=== PATIENT | male | born 1965 | race Caucasian/White ===

== ENCOUNTER 2017-12-18 16:30 | Inpatient (IN) | payer OTHER ==
[2017-12-18] MEDS: SODIUM CHLORIDE 0.9% 1L BAG IV* (17:07)
[2017-12-18 17:15] LABS: ADD MAN DIFF? NO
[2017-12-18 17:17] LABS: WHITE BLOOD COUNT 12.3 10^3/ul (4.8-10.8)
[2017-12-18 17:17] LABS: BASOPHILS % 0.2 % (0.0-2.0); EOSINOPHILS # 0.1 10^3/ul (0.0-0.5); EOSINOPHILS % 0.7 % (0.0-7.0); HEMATOCRIT 27.8 % (42.0-52.0); HEMOGLOBIN 9.9 g/dl (14.0-18.0); LYMPHOCYTES # 2.1 10^3/ul (0.8-2.9); LYMPHOCYTES % 16.9 % (15.0-51.0); MEAN CORPUSCULAR HEMOGLOBIN 33.2 pg (29.0-33.0); MEAN CORPUSCULAR HGB CONC 35.6 g/dl (32.0-37.0); MEAN CORPUSCULAR VOLUME 93.3 fl (82.0-101.0); MEAN PLATELET VOLUME 9.7 fl (7.4-10.4); NEUTROPHIL # 9.1 10^3/ul (1.6-7.5); NEUTROPHILS % 73.9 % (39.0-77.0); PLATELET COUNT 218 10^3/UL (140-415); RED BLOOD COUNT 2.98 10^6/ul (4.70-6.10); RED CELL DISTRIBUTION WIDTH 10.7 % (11.5-14.5)
[2017-12-18 17:36] LABS: ALANINE AMINOTRANSFERASE 31 IU/L (13-69); ALBUMIN 3.4 g/dl (3.3-4.9); ALBUMIN/GLOBULIN RATIO 0.91; ALKALINE PHOSPHATASE 88 IU/L (42-121); ANION GAP 11 (8-16); ASPARTATE AMINO TRANSFERASE 25 IU/L (15-46); BILIRUBIN,INDIRECT 0.8 mg/dl (0-1.1); BILIRUBIN,TOTAL 0.8 mg/dl (0.2-1.3); BLOOD UREA NITROGEN 34 mg/dl (7-20); CALCIUM 8.9 mg/dl (8.4-10.2); CARBON DIOXIDE 27 mmol/L (21-31); CHLORIDE 99 mmol/L (97-110); CREATININE 1.23 mg/dl (0.61-1.24); GLUCOSE 297 mg/dl (70-220); POTASSIUM 4.4 mmol/L (3.5-5.1); SODIUM 133 mmol/L (135-144); TOTAL PROTEIN 7.1 g/dl (6.1-8.1)
[2017-12-18] MEDS: CEFEPIME 1GM/50 ML (PMX) 50 ML IVPB (17:38)
[2017-12-18 17:43] LABS: INR 1.14; PROTIME 14.8 Sec (11.9-14.9); PT RATIO 1.2
[2017-12-18 17:44] LABS: PARTIAL THROMBOPLASTIN TIME 41.4 Sec (25.0-35.0)
[2017-12-18 17:52] LABS: TROPONIN-I < 0.010 ng/ml (0.000-0.120)
[2017-12-18 17:56] LABS: ADD UMIC YES; UR ASCORBIC ACID NEGATIVE (NEGATIVE); UR BILIRUBIN (Dip) NEGATIVE (NEGATIVE); UR BLOOD (Dip) NEGATIVE (NEGATIVE); UR CLARITY CLEAR (CLEAR); UR COLOR STRAW (YELLOW); UR GLUCOSE (Dip) 3+ mg/dL (NEGATIVE); UR KETONES (Dip) NEGATIVE (NEGATIVE); UR LEUKOCYTE ESTERASE (Dip) NEGATIVE Leu/ul (NEGATIVE); UR NITRITE (Dip) NEGATIVE (NEGATIVE); UR RBC 1 /HPF (0-5); UR TOTAL PROTEIN (Dip) 2+ mg/dl (NEGATIVE); UR UROBILINOGEN (Dip) NEGATIVE (NEGATIVE); UR WBC 0 /HPF (0-5)
[2017-12-18] MEDS: VANCOMYCIN 1 GM (PMX) 250 ML IVPB (18:10)
[2017-12-18 18:17] LABS: C-REACTIVE PROTEIN 15.2 mg/dl (0.0-0.9)
[2017-12-18 18:23] LABS: ERYTHROCYTE SEDIMENTATION RATE 130 mm/Hr (0-20)
[2017-12-18] MEDS ORDERED: ONDANSETRON 4 MG INJ IV (18:30)
[2017-12-18] MEDS ORDERED: ACETAMINOPHEN 325 MG TAB PO (18:30)
[2017-12-18 19:46] LABS: LACTIC ACID 0.9 mmol/L (0.5-2.0)
[2017-12-18 22:20] LABS: LACTIC ACID 0.9 mmol/L (0.5-2.0)
[2017-12-18] MEDS ORDERED: DEXTROSE 50% 50 ML SYRINGE IV ×2 (23:00)
[2017-12-18] MEDS ORDERED: morphine 2 MG INJ IV (23:00)
[2017-12-18] MEDS ORDERED: GLUCAGON 1 MG INJ IM (23:00)
[2017-12-18] MEDS ORDERED: GLUCOSE GEL 15 GRAM TUBE PO ×2 (23:00)
[2017-12-18] MEDS: SOD CHLORIDE 0.9% 1,000 ML IV (23:00)
[2017-12-18] MEDS ORDERED: ZOLPIDEM 5 MG TAB PO (23:00)
[2017-12-18] MEDS ORDERED: GLUCOSE GEL 15 GRAM TUBE BUCCAL (23:00)
[2017-12-19] MEDS: ACCU-CHEK XX (02:00)
[2017-12-19 07:13] LABS: ADD MAN DIFF? NO
[2017-12-19 07:15] LABS: BASOPHILS % 0.2 % (0.0-2.0); EOSINOPHILS # 0.1 10^3/ul (0.0-0.5); EOSINOPHILS % 1.4 % (0.0-7.0); HEMATOCRIT 28.2 % (42.0-52.0); HEMOGLOBIN 9.8 g/dl (14.0-18.0); LYMPHOCYTES # 1.3 10^3/ul (0.8-2.9); LYMPHOCYTES % 14.5 % (15.0-51.0); MEAN CORPUSCULAR HGB CONC 34.8 g/dl (32.0-37.0); MEAN CORPUSCULAR VOLUME 94.9 fl (82.0-101.0); MEAN PLATELET VOLUME 9.8 fl (7.4-10.4); MONOCYTE # 0.7 10^3/ul (0.3-0.9); MONOCYTES % 7.5 % (0.0-11.0); NEUTROPHILS % 76.1 % (39.0-77.0); PLATELET COUNT 206 10^3/UL (140-415); RED BLOOD COUNT 2.97 10^6/ul (4.70-6.10); RED CELL DISTRIBUTION WIDTH 10.8 % (11.5-14.5)
[2017-12-19 07:15] LABS: WHITE BLOOD COUNT 9.2 10^3/ul (4.8-10.8)
[2017-12-19 07:46] LABS: ALANINE AMINOTRANSFERASE 28 IU/L (13-69); ALBUMIN 3.2 g/dl (3.3-4.9); ALBUMIN/GLOBULIN RATIO 0.88; ALKALINE PHOSPHATASE 82 IU/L (42-121); ANION GAP 15 (8-16); ASPARTATE AMINO TRANSFERASE 23 IU/L (15-46); BILIRUBIN,INDIRECT 1.1 mg/dl (0-1.1); BILIRUBIN,TOTAL 1.1 mg/dl (0.2-1.3); BLOOD UREA NITROGEN 26 mg/dl (7-20); CALCIUM 8.8 mg/dl (8.4-10.2); CARBON DIOXIDE 25 mmol/L (21-31); CHLORIDE 107 mmol/L (97-110); CREATININE 0.93 mg/dl (0.61-1.24); GLUCOSE 103 mg/dl (70-220); POTASSIUM 4.6 mmol/L (3.5-5.1); SODIUM 142 mmol/L (135-144); TOTAL PROTEIN 6.8 g/dl (6.1-8.1)
[2017-12-19] MEDS: INSULIN ASPART [NOVOLOG] 3 ML PEN SC ×4 (08:00→20:42)
[2017-12-19] MEDS: FAMOTIDINE 20 MG TAB PO ×2 (08:13→20:38)
[2017-12-19] MEDS: ENOXAPARIN 40 MG/0.4 ML SYG SC (08:14)
[2017-12-19] MEDS: CEFTRIAXONE 1 GM/50 ML (PMX) 50 ML IVPB (08:17)
[2017-12-19] MEDS ORDERED: CEFTRIAXONE 1 GM INJ IVPB (09:00)
[2017-12-19] MEDS: AMLODIPINE 5 MG TAB PO (11:56)
[2017-12-19] MEDS ORDERED: VANCOMYCIN IV PER PHARMACY XX (14:30)
[2017-12-19] MEDS: VANCOMYCIN 1 GM 250 ML IVPB (14:51)
[2017-12-19] MEDS: SOD CHLORIDE 0.9% 1,000 ML IV (14:51)
[2017-12-19] MEDS: ACETAMINOPHEN 325 MG TAB PO (16:00)
[2017-12-20] MEDS: ACCU-CHEK XX (02:00)
[2017-12-20] MEDS: VANCOMYCIN 1 GM 250 ML IVPB ×2 (04:09→15:46)
[2017-12-20 07:20] LABS: ADD MAN DIFF? NO
[2017-12-20 07:28] LABS: WHITE BLOOD COUNT 9.3 10^3/ul (4.8-10.8)
[2017-12-20 07:28] LABS: BASOPHILS % 0.2 % (0.0-2.0); EOSINOPHILS # 0.2 10^3/ul (0.0-0.5); EOSINOPHILS % 1.7 % (0.0-7.0); HEMATOCRIT 28.1 % (42.0-52.0); HEMOGLOBIN 9.7 g/dl (14.0-18.0); LYMPHOCYTES # 1.4 10^3/ul (0.8-2.9); LYMPHOCYTES % 15.1 % (15.0-51.0); MEAN CORPUSCULAR HEMOGLOBIN 32.8 pg (29.0-33.0); MEAN CORPUSCULAR HGB CONC 34.5 g/dl (32.0-37.0); MEAN CORPUSCULAR VOLUME 94.9 fl (82.0-101.0); MEAN PLATELET VOLUME 9.8 fl (7.4-10.4); MONOCYTE # 0.6 10^3/ul (0.3-0.9); MONOCYTES % 6.9 % (0.0-11.0); NEUTROPHIL # 7.1 10^3/ul (1.6-7.5); NEUTROPHILS % 75.8 % (39.0-77.0); PLATELET COUNT 216 10^3/UL (140-415); RED BLOOD COUNT 2.96 10^6/ul (4.70-6.10); RED CELL DISTRIBUTION WIDTH 10.6 % (11.5-14.5)
[2017-12-20 07:58] LABS: ANION GAP 14 (8-16); BLOOD UREA NITROGEN 21 mg/dl (7-20); CALCIUM 8.5 mg/dl (8.4-10.2); CARBON DIOXIDE 23 mmol/L (21-31); CHLORIDE 109 mmol/L (97-110); CREATININE 0.85 mg/dl (0.61-1.24); GLUCOSE 119 mg/dl (70-220); POTASSIUM 4.3 mmol/L (3.5-5.1); SODIUM 142 mmol/L (135-144)
[2017-12-20] MEDS: INSULIN ASPART [NOVOLOG] 3 ML PEN SC ×4 (08:00→20:20)
[2017-12-20] MEDS: FAMOTIDINE 20 MG TAB PO ×2 (08:19→20:12)
[2017-12-20] MEDS: AMLODIPINE 5 MG TAB PO (08:20)
[2017-12-20] MEDS: ENOXAPARIN 40 MG/0.4 ML SYG SC (08:21)
[2017-12-20] MEDS: CEFTRIAXONE 1 GM/50 ML (PMX) 50 ML IVPB (08:40)
[2017-12-20] MEDS: CLOPIDOGREL 75 MG TAB PO (11:43)
[2017-12-21] MEDS: ACCU-CHEK XX (01:50)
[2017-12-21 02:25] LABS: ADD MAN DIFF? NO
[2017-12-21 02:27] LABS: BASOPHILS % 0.2 % (0.0-2.0); EOSINOPHILS # 0.2 10^3/ul (0.0-0.5); EOSINOPHILS % 2.2 % (0.0-7.0); HEMOGLOBIN 9.9 g/dl (14.0-18.0); LYMPHOCYTES # 1.7 10^3/ul (0.8-2.9); MEAN CORPUSCULAR HGB CONC 35.4 g/dl (32.0-37.0); MEAN CORPUSCULAR VOLUME 93.3 fl (82.0-101.0); MONOCYTE # 0.7 10^3/ul (0.3-0.9); MONOCYTES % 7.3 % (0.0-11.0); NEUTROPHIL # 6.7 10^3/ul (1.6-7.5); NEUTROPHILS % 71.9 % (39.0-77.0); PLATELET COUNT 220 10^3/UL (140-415); RED CELL DISTRIBUTION WIDTH 10.6 % (11.5-14.5)
[2017-12-21 02:27] LABS: WHITE BLOOD COUNT 9.3 10^3/ul (4.8-10.8)
[2017-12-21 02:48] LABS: ANION GAP 12 (8-16); BLOOD UREA NITROGEN 19 mg/dl (7-20); CALCIUM 8.6 mg/dl (8.4-10.2); CARBON DIOXIDE 26 mmol/L (21-31); CHLORIDE 108 mmol/L (97-110); GLUCOSE 150 mg/dl (70-220); POTASSIUM 4.2 mmol/L (3.5-5.1); SODIUM 142 mmol/L (135-144)
[2017-12-21 03:03] LABS: HEMOGLOBIN A1C 10.1 % (0-5.9)
[2017-12-21 03:04] LABS: VANCOMYCIN,TROUGH 9.1 ug/ml (10.0-20.0)
[2017-12-21] MEDS: VANCOMYCIN 1 GM 250 ML IVPB (03:15)
[2017-12-21] MEDS: INSULIN ASPART [NOVOLOG] 3 ML PEN SC ×4 (08:09→20:56)
[2017-12-21] MEDS: CEFTRIAXONE 1 GM/50 ML (PMX) 50 ML IVPB (08:12)
[2017-12-21] MEDS: FAMOTIDINE 20 MG TAB PO ×2 (08:13→20:45)
[2017-12-21] MEDS: AMLODIPINE 5 MG TAB PO (08:14)
[2017-12-21] MEDS: ENOXAPARIN 40 MG/0.4 ML SYG SC (08:16)
[2017-12-21] MEDS: VANCOMYCIN 1.25 GM in SOD CHLORIDE 0.9% 250 ML IVPB ×2 (12:20→23:29)
[2017-12-21] MEDS: PENTOXIFYLLINE (SR) 400 MG TAB PO ×2 (14:39→20:45)
[2017-12-21] MEDS: INSULIN GLARGINE [LANtus] 3 ML PEN SC (20:56)
[2017-12-22] MEDS: ACCU-CHEK XX (02:00)
[2017-12-22 05:37] LABS: ADD MAN DIFF? NO
[2017-12-22 05:43] LABS: WHITE BLOOD COUNT 8.6 10^3/ul (4.8-10.8)
[2017-12-22 05:43] LABS: BASOPHILS % 0.3 % (0.0-2.0); EOSINOPHILS # 0.2 10^3/ul (0.0-0.5); EOSINOPHILS % 2.3 % (0.0-7.0); HEMATOCRIT 26.2 % (42.0-52.0); HEMOGLOBIN 9.3 g/dl (14.0-18.0); LYMPHOCYTES # 1.4 10^3/ul (0.8-2.9); LYMPHOCYTES % 15.8 % (15.0-51.0); MEAN CORPUSCULAR HGB CONC 35.5 g/dl (32.0-37.0); MEAN CORPUSCULAR VOLUME 92.9 fl (82.0-101.0); MEAN PLATELET VOLUME 9.5 fl (7.4-10.4); MONOCYTE # 0.6 10^3/ul (0.3-0.9); NEUTROPHIL # 6.4 10^3/ul (1.6-7.5); NEUTROPHILS % 74.1 % (39.0-77.0); PLATELET COUNT 236 10^3/UL (140-415); RED BLOOD COUNT 2.82 10^6/ul (4.70-6.10); RED CELL DISTRIBUTION WIDTH 10.6 % (11.5-14.5)
[2017-12-22] MEDS: FAMOTIDINE 20 MG TAB PO ×2 (08:01→21:11)
[2017-12-22] MEDS: PENTOXIFYLLINE (SR) 400 MG TAB PO ×3 (08:01→22:15)
[2017-12-22] MEDS: AMLODIPINE 5 MG TAB PO (08:01)
[2017-12-22] MEDS: CEFTRIAXONE 1 GM/50 ML (PMX) 50 ML IVPB (08:02)
[2017-12-22] MEDS: INSULIN ASPART [NOVOLOG] 3 ML PEN SC ×5 (08:07→21:14)
[2017-12-22] MEDS: ENOXAPARIN 40 MG/0.4 ML SYG SC (08:07)
[2017-12-22] MEDS: VANCOMYCIN 1.25 GM in SOD CHLORIDE 0.9% 250 ML IVPB (11:33)
[2017-12-22] MEDS: INSULIN GLARGINE [LANtus] 3 ML PEN SC (21:13)
[2017-12-23] MEDS: VANCOMYCIN 1.25 GM in SOD CHLORIDE 0.9% 250 ML IVPB ×2 (00:17→12:18)
[2017-12-23] MEDS: ACCU-CHEK XX (02:00)
[2017-12-23 05:56] LABS: ADD MAN DIFF? NO
[2017-12-23 06:08] LABS: WHITE BLOOD COUNT 8.6 10^3/ul (4.8-10.8)
[2017-12-23 06:08] LABS: BASOPHILS % 0.3 % (0.0-2.0); EOSINOPHILS # 0.3 10^3/ul (0.0-0.5); HEMOGLOBIN 9.1 g/dl (14.0-18.0); LYMPHOCYTES # 1.7 10^3/ul (0.8-2.9); LYMPHOCYTES % 19.1 % (15.0-51.0); MEAN CORPUSCULAR HEMOGLOBIN 32.7 pg (29.0-33.0); MEAN CORPUSCULAR VOLUME 93.5 fl (82.0-101.0); MEAN PLATELET VOLUME 9.4 fl (7.4-10.4); MONOCYTE # 0.6 10^3/ul (0.3-0.9); MONOCYTES % 7.1 % (0.0-11.0); NEUTROPHIL # 6.1 10^3/ul (1.6-7.5); NEUTROPHILS % 70.2 % (39.0-77.0); PLATELET COUNT 246 10^3/UL (140-415); RED BLOOD COUNT 2.78 10^6/ul (4.70-6.10); RED CELL DISTRIBUTION WIDTH 10.5 % (11.5-14.5)
[2017-12-23 06:44] LABS: ANION GAP 11 (8-16); BLOOD UREA NITROGEN 16 mg/dl (7-20); CALCIUM 8.4 mg/dl (8.4-10.2); CARBON DIOXIDE 28 mmol/L (21-31); CHLORIDE 107 mmol/L (97-110); CREATININE 0.97 mg/dl (0.61-1.24); GLUCOSE 146 mg/dl (70-220); POTASSIUM 4.1 mmol/L (3.5-5.1); SODIUM 142 mmol/L (135-144)
[2017-12-23] MEDS: INSULIN ASPART [NOVOLOG] 3 ML PEN SC ×7 (08:15→21:43)
[2017-12-23] MEDS: AMLODIPINE 5 MG TAB PO ×2 (09:00→12:18)
[2017-12-23] MEDS: FAMOTIDINE 20 MG TAB PO ×3 (09:00→21:42)
[2017-12-23] MEDS: PENTOXIFYLLINE (SR) 400 MG TAB PO ×3 (09:00→21:42)
[2017-12-23] MEDS: ENOXAPARIN 40 MG/0.4 ML SYG SC ×2 (09:00→12:24)
[2017-12-23] MEDS: CEFTRIAXONE 1 GM/50 ML (PMX) 50 ML IVPB (09:13)
[2017-12-23 12:00] LABS: VANCOMYCIN,TROUGH 13.2 ug/ml (10.0-20.0)
[2017-12-23] MEDS: INSULIN GLARGINE [LANtus] 3 ML PEN SC (21:44)
[2017-12-24] MEDS: VANCOMYCIN 1.5 GM in SOD CHLORIDE 0.9% 250 ML IVPB ×3 (00:31→23:53)
[2017-12-24] MEDS: ACCU-CHEK XX (02:37)
[2017-12-24 06:50] LABS: BLOOD UREA NITROGEN 17 mg/dl (7-20)
[2017-12-24 06:50] LABS: CREATININE 1.05 mg/dl (0.61-1.24)
[2017-12-24] MEDS: INSULIN ASPART [NOVOLOG] 3 ML PEN SC ×7 (07:38→20:53)
[2017-12-24] MEDS: AMLODIPINE 5 MG TAB PO (09:01)
[2017-12-24] MEDS: PENTOXIFYLLINE (SR) 400 MG TAB PO ×3 (09:01→20:51)
[2017-12-24] MEDS: FAMOTIDINE 20 MG TAB PO ×2 (09:01→20:50)
[2017-12-24] MEDS: ENOXAPARIN 40 MG/0.4 ML SYG SC (09:02)
[2017-12-24] MEDS: INSULIN GLARGINE [LANtus] 3 ML PEN SC (20:52)
[2017-12-25] MEDS: ACCU-CHEK XX (01:56)
[2017-12-25 06:53] LABS: CREATININE 1.02 mg/dl (0.61-1.24)
[2017-12-25 06:53] LABS: BLOOD UREA NITROGEN 17 mg/dl (7-20)
[2017-12-25] MEDS: INSULIN ASPART [NOVOLOG] 3 ML PEN SC ×7 (07:47→21:24)
[2017-12-25] MEDS: PENTOXIFYLLINE (SR) 400 MG TAB PO ×3 (09:11→21:25)
[2017-12-25] MEDS: AMLODIPINE 5 MG TAB PO (09:12)
[2017-12-25] MEDS: FAMOTIDINE 20 MG TAB PO ×2 (09:12→21:26)
[2017-12-25] MEDS: ENOXAPARIN 40 MG/0.4 ML SYG SC (09:16)
[2017-12-25] MEDS: VANCOMYCIN 1.5 GM in SOD CHLORIDE 0.9% 250 ML IVPB (12:30)
[2017-12-25] MEDS: INSULIN GLARGINE [LANtus] 3 ML PEN SC (21:24)
[2017-12-25 23:58] LABS: VANCOMYCIN,TROUGH 20.1 ug/ml (10.0-20.0)
[2017-12-26] MEDS: ACCU-CHEK XX (02:00)
[2017-12-26] MEDS: VANCOMYCIN 1 GM 250 ML IVPB ×2 (02:06→14:59)
[2017-12-26] MEDS: INSULIN ASPART [NOVOLOG] 3 ML PEN SC ×9 (07:54→20:37)
[2017-12-26] MEDS: PENTOXIFYLLINE (SR) 400 MG TAB PO ×3 (09:45→20:31)
[2017-12-26] MEDS: BISACODYL (EC) 5 MG TAB PO (09:45)
[2017-12-26] MEDS: FAMOTIDINE 20 MG TAB PO ×2 (09:45→20:31)
[2017-12-26] MEDS: AMLODIPINE 5 MG TAB PO (09:46)
[2017-12-26] MEDS: ENOXAPARIN 40 MG/0.4 ML SYG SC (09:47)
[2017-12-26] MEDS: INSULIN GLARGINE [LANtus] 3 ML PEN SC (20:38)
[2017-12-27] MEDS: ACCU-CHEK XX (01:42)
[2017-12-27] MEDS: VANCOMYCIN 1 GM 250 ML IVPB ×2 (02:04→15:08)
[2017-12-27 06:51] LABS: ANION GAP 11 (8-16); BLOOD UREA NITROGEN 18 mg/dl (7-20); CALCIUM 8.6 mg/dl (8.4-10.2); CARBON DIOXIDE 27 mmol/L (21-31); CHLORIDE 108 mmol/L (97-110); CREATININE 1.35 mg/dl (0.61-1.24); GLUCOSE 141 mg/dl (70-220); POTASSIUM 4.1 mmol/L (3.5-5.1); SODIUM 142 mmol/L (135-144)
[2017-12-27] MEDS: INSULIN ASPART [NOVOLOG] 3 ML PEN SC ×7 (07:43→21:00)
[2017-12-27] MEDS: FAMOTIDINE 20 MG TAB PO ×2 (08:18→21:01)
[2017-12-27] MEDS: AMLODIPINE 5 MG TAB PO (08:19)
[2017-12-27] MEDS: PENTOXIFYLLINE (SR) 400 MG TAB PO ×3 (08:19→21:01)
[2017-12-27] MEDS: ENOXAPARIN 40 MG/0.4 ML SYG SC (08:26)
[2017-12-27 14:41] LABS: VANCOMYCIN,TROUGH 15.3 ug/ml (10.0-20.0)
[2017-12-27] MEDS: INSULIN GLARGINE [LANtus] 3 ML PEN SC (21:08)
[2017-12-28] MEDS: ACCU-CHEK XX (01:34)
[2017-12-28] MEDS: VANCOMYCIN 1 GM 250 ML IVPB ×2 (02:12→13:51)
[2017-12-28 07:27] LABS: CREATININE 1.22 mg/dl (0.61-1.24)
[2017-12-28 07:27] LABS: BLOOD UREA NITROGEN 19 mg/dl (7-20)
[2017-12-28] MEDS: PENTOXIFYLLINE (SR) 400 MG TAB PO ×3 (08:11→20:41)
[2017-12-28] MEDS: FAMOTIDINE 20 MG TAB PO ×2 (08:11→20:41)
[2017-12-28] MEDS: AMLODIPINE 5 MG TAB PO (08:11)
[2017-12-28] MEDS: INSULIN ASPART [NOVOLOG] 3 ML PEN SC ×7 (08:12→23:35)
[2017-12-28] MEDS: ENOXAPARIN 40 MG/0.4 ML SYG SC (08:17)
[2017-12-28 22:46] LABS: GLUCOSE 193 mg/dl (70-220)
[2017-12-28] MEDS: INSULIN GLARGINE [LANtus] 3 ML PEN SC (23:34)
[2017-12-29] MEDS: ACCU-CHEK XX (01:57)
[2017-12-29] MEDS: VANCOMYCIN 1 GM 250 ML IVPB ×3 (02:01→16:39)
[2017-12-29] MEDS: INSULIN ASPART [NOVOLOG] 3 ML PEN SC ×7 (08:06→21:00)
[2017-12-29] MEDS: SOD CHLORIDE 0.9% 1,000 ML IV (08:07)
[2017-12-29] MEDS: ENOXAPARIN 40 MG/0.4 ML SYG SC (08:08)
[2017-12-29] MEDS: FAMOTIDINE 20 MG TAB PO ×2 (08:24→21:01)
[2017-12-29] MEDS: PENTOXIFYLLINE (SR) 400 MG TAB PO ×3 (08:25→21:01)
[2017-12-29] MEDS: AMLODIPINE 5 MG TAB PO (08:25)
[2017-12-29] MEDS ORDERED: MIDAZOLAM 1 MG/ML 2 ML INJ (14:20)
[2017-12-29] MEDS ORDERED: FENTAnyl 50 MCG/ML VIAL (14:20)
[2017-12-29] MEDS ORDERED: HEPARIN 1000 UNITS/ML 10 ML INJ (14:52)
[2017-12-29] MEDS ORDERED: LIDOCAINE 1% (MDV) 10 ML INJ (15:44)
[2017-12-29] MEDS ORDERED: HEPARIN 1000 UNITS/NS (A-LINE) 1,000 ML (15:44)
[2017-12-29] MEDS ORDERED: IODIXANOL LOCM 100 ML BTL (15:44)
[2017-12-29] MEDS ORDERED: SOD CHLORIDE 0.9% 1,000 ML IV (15:48)
[2017-12-29] MEDS: INSULIN GLARGINE [LANtus] 3 ML PEN SC (21:03)
[2017-12-30] MEDS: ACCU-CHEK XX (02:00)
[2017-12-30] MEDS: VANCOMYCIN 1 GM 250 ML IVPB ×2 (05:13→17:36)
[2017-12-30 05:59] LABS: ADD MAN DIFF? NO
[2017-12-30 06:06] LABS: BASOPHILS % 0.4 % (0.0-2.0); EOSINOPHILS # 0.3 10^3/ul (0.0-0.5); EOSINOPHILS % 3.5 % (0.0-7.0); HEMATOCRIT 26.4 % (42.0-52.0); HEMOGLOBIN 9.3 g/dl (14.0-18.0); LYMPHOCYTES # 1.3 10^3/ul (0.8-2.9); LYMPHOCYTES % 17.2 % (15.0-51.0); MEAN CORPUSCULAR HEMOGLOBIN 32.4 pg (29.0-33.0); MEAN CORPUSCULAR HGB CONC 35.2 g/dl (32.0-37.0); MEAN PLATELET VOLUME 9.6 fl (7.4-10.4); MONOCYTE # 0.5 10^3/ul (0.3-0.9); MONOCYTES % 5.9 % (0.0-11.0); NEUTROPHIL # 5.7 10^3/ul (1.6-7.5); NEUTROPHILS % 72.7 % (39.0-77.0); PLATELET COUNT 325 10^3/UL (140-415); RED BLOOD COUNT 2.87 10^6/ul (4.70-6.10); RED CELL DISTRIBUTION WIDTH 10.5 % (11.5-14.5)
[2017-12-30 06:06] LABS: WHITE BLOOD COUNT 7.8 10^3/ul (4.8-10.8)
[2017-12-30 06:48] LABS: PHOSPHORUS 4.3 mg/dl (2.5-4.9)
[2017-12-30 06:48] LABS: MAGNESIUM 2.1 mg/dl (1.7-2.5)
[2017-12-30 06:49] LABS: ANION GAP 13 (8-16); BLOOD UREA NITROGEN 20 mg/dl (7-20); CALCIUM 8.8 mg/dl (8.4-10.2); CARBON DIOXIDE 28 mmol/L (21-31); CHLORIDE 104 mmol/L (97-110); CREATININE 1.21 mg/dl (0.61-1.24); GLUCOSE 123 mg/dl (70-220); POTASSIUM 4.1 mmol/L (3.5-5.1); SODIUM 141 mmol/L (135-144)
[2017-12-30] MEDS: INSULIN ASPART [NOVOLOG] 3 ML PEN SC ×7 (07:44→20:38)
[2017-12-30] MEDS: ENOXAPARIN 40 MG/0.4 ML SYG SC (08:01)
[2017-12-30] MEDS: FAMOTIDINE 20 MG TAB PO ×2 (08:03→20:40)
[2017-12-30] MEDS: AMLODIPINE 5 MG TAB PO (08:04)
[2017-12-30] MEDS: PENTOXIFYLLINE (SR) 400 MG TAB PO ×3 (08:04→20:40)
[2017-12-30] MEDS: INSULIN GLARGINE [LANtus] 3 ML PEN SC (20:37)
[2017-12-31] MEDS: ACCU-CHEK XX (02:00)
[2017-12-31 05:31] LABS: VANCOMYCIN,TROUGH 16.4 ug/ml (10.0-20.0)
[2017-12-31] MEDS: VANCOMYCIN 1 GM 250 ML IVPB ×2 (05:38→16:09)
[2017-12-31] MEDS: INSULIN ASPART [NOVOLOG] 3 ML PEN SC ×7 (08:15→20:28)
[2017-12-31] MEDS: PENTOXIFYLLINE (SR) 400 MG TAB PO ×3 (08:45→20:25)
[2017-12-31] MEDS: FAMOTIDINE 20 MG TAB PO ×2 (08:46→20:25)
[2017-12-31] MEDS: AMLODIPINE 5 MG TAB PO (08:46)
[2017-12-31] MEDS: ENOXAPARIN 40 MG/0.4 ML SYG SC (08:47)
[2017-12-31] MEDS: INSULIN GLARGINE [LANtus] 3 ML PEN SC (20:28)
[2018-01-01] MEDS: ACCU-CHEK XX (01:55)
[2018-01-01] MEDS: VANCOMYCIN 1 GM 250 ML IVPB ×2 (04:41→16:05)
[2018-01-01 06:51] LABS: BLOOD UREA NITROGEN 17 mg/dl (7-20)
[2018-01-01 06:51] LABS: CREATININE 1.23 mg/dl (0.61-1.24)
[2018-01-01] MEDS: INSULIN ASPART [NOVOLOG] 3 ML PEN SC ×7 (07:34→21:00)
[2018-01-01] MEDS: ENOXAPARIN 40 MG/0.4 ML SYG SC (09:10)
[2018-01-01] MEDS: FAMOTIDINE 20 MG TAB PO ×2 (09:10→21:44)
[2018-01-01] MEDS: PENTOXIFYLLINE (SR) 400 MG TAB PO ×3 (09:10→21:45)
[2018-01-01] MEDS: AMLODIPINE 5 MG TAB PO (09:11)
[2018-01-01 15:39] LABS: HEMATOCRIT 27.2 % (42.0-52.0); HEMOGLOBIN 9.5 g/dl (14.0-18.0)
[2018-01-01] MEDS ORDERED: LIDOCAINE 2% (MDV) 20 ML INJ (18:36)
[2018-01-01] MEDS ORDERED: BUPIVACAINE 0.5% (SDV) 30 ML INJ (18:36)
[2018-01-01] MEDS ORDERED: MIDAZOLAM 1 MG/ML 2 ML INJ (19:01)
[2018-01-01] MEDS ORDERED: FENTAnyl 50 MCG/ML VIAL (19:01)
[2018-01-01] MEDS ORDERED: LIDOCAINE 2% (SDV) 5 ML INJ (19:56)
[2018-01-01] MEDS ORDERED: ETOMIDATE 20 MG INJ (19:56)
[2018-01-01] MEDS ORDERED: CEFAZOLIN 1 GM INJ (19:56)
[2018-01-01] MEDS: POLYMYXIN/BACITRACIN 1L IRRIG (20:04)
[2018-01-01] MEDS ORDERED: ONDANSETRON 4 MG INJ (20:07)
[2018-01-01] MEDS ORDERED: FENTAnyl 50 MCG/ML VIAL IV (20:30)
[2018-01-01] MEDS ORDERED: DIPHENHYDRAMINE 50 MG INJ IV (20:30)
[2018-01-01] MEDS ORDERED: HYDROmorphONE 1 MG/5 ML IV SYRINGE IV (20:30)
[2018-01-01] MEDS: MEPERIDINE 25 MG INJ IV (20:30)
[2018-01-01] MEDS ORDERED: LABETALOL HCL 20MG INJ IV (20:30)
[2018-01-01] MEDS ORDERED: ONDANSETRON 4 MG INJ IV (20:30)
[2018-01-01] MEDS: HYDROmorphONE 1 MG/5 ML IV SYRINGE IV (20:53)
[2018-01-01] MEDS: INSULIN GLARGINE [LANtus] 3 ML PEN SC (21:48)
[2018-01-02] MEDS: ACCU-CHEK XX (02:00)
[2018-01-02] MEDS: VANCOMYCIN 1 GM 250 ML IVPB (05:34)
[2018-01-02 06:51] LABS: CREATININE 1.29 mg/dl (0.61-1.24)
[2018-01-02 06:51] LABS: BLOOD UREA NITROGEN 17 mg/dl (7-20)
[2018-01-02] MEDS: INSULIN ASPART [NOVOLOG] 3 ML PEN SC ×7 (08:05→21:06)
[2018-01-02] MEDS: morphine LIQ (10 MG/5 ML) CUP PO (08:23)
[2018-01-02] MEDS: FAMOTIDINE 20 MG TAB PO ×2 (08:23→21:01)
[2018-01-02] MEDS: AMLODIPINE 5 MG TAB PO (08:23)
[2018-01-02] MEDS: PENTOXIFYLLINE (SR) 400 MG TAB PO ×3 (08:23→21:01)
[2018-01-02] MEDS: ENOXAPARIN 40 MG/0.4 ML SYG SC (08:52)
[2018-01-02] MEDS: CLOPIDOGREL 75 MG TAB PO (12:15)
[2018-01-02 12:41] LABS: VANCOMYCIN,RANDOM 16.6 ug/ml
[2018-01-02] MEDS: VANCOMYCIN 750 MG in SOD CHLORIDE 0.9% 150 ML IVPB (18:46)
[2018-01-02] MEDS: INSULIN GLARGINE [LANtus] 3 ML PEN SC (21:05)
[2018-01-03] MEDS: ACCU-CHEK XX (02:00)
[2018-01-03] MEDS: VANCOMYCIN 750 MG in SOD CHLORIDE 0.9% 150 ML IVPB ×2 (05:24→17:54)
[2018-01-03 06:19] LABS: ADD MAN DIFF? NO
[2018-01-03 06:36] LABS: BASOPHILS % 0.4 % (0.0-2.0); EOSINOPHILS # 0.3 10^3/ul (0.0-0.5); EOSINOPHILS % 3.4 % (0.0-7.0); HEMATOCRIT 22.3 % (42.0-52.0); HEMOGLOBIN 7.8 g/dl (14.0-18.0); LYMPHOCYTES # 1.3 10^3/ul (0.8-2.9); LYMPHOCYTES % 17.7 % (15.0-51.0); MEAN CORPUSCULAR HEMOGLOBIN 32.2 pg (29.0-33.0); MEAN CORPUSCULAR VOLUME 92.1 fl (82.0-101.0); MEAN PLATELET VOLUME 9.3 fl (7.4-10.4); MONOCYTE # 0.5 10^3/ul (0.3-0.9); MONOCYTES % 6.2 % (0.0-11.0); NEUTROPHIL # 5.2 10^3/ul (1.6-7.5); PLATELET COUNT 281 10^3/UL (140-415); RED BLOOD COUNT 2.42 10^6/ul (4.70-6.10); RED CELL DISTRIBUTION WIDTH 10.7 % (11.5-14.5)
[2018-01-03 06:36] LABS: WHITE BLOOD COUNT 7.3 10^3/ul (4.8-10.8)
[2018-01-03 06:57] LABS: ANION GAP 11 (8-16); BLOOD UREA NITROGEN 14 mg/dl (7-20); CALCIUM 8.9 mg/dl (8.4-10.2); CARBON DIOXIDE 29 mmol/L (21-31); CHLORIDE 105 mmol/L (97-110); CREATININE 1.31 mg/dl (0.61-1.24); GLUCOSE 120 mg/dl (70-220); POTASSIUM 3.9 mmol/L (3.5-5.1); SODIUM 141 mmol/L (135-144)
[2018-01-03 07:14] LABS: PHOSPHORUS 4.4 mg/dl (2.5-4.9)
[2018-01-03 07:14] LABS: MAGNESIUM 2.1 mg/dl (1.7-2.5)
[2018-01-03] MEDS: INSULIN ASPART [NOVOLOG] 3 ML PEN SC ×7 (07:58→20:29)
[2018-01-03] MEDS: FAMOTIDINE 20 MG TAB PO ×2 (09:11→20:22)
[2018-01-03] MEDS: PENTOXIFYLLINE (SR) 400 MG TAB PO ×3 (09:11→20:23)
[2018-01-03] MEDS: CLOPIDOGREL 75 MG TAB PO (09:11)
[2018-01-03] MEDS: ENOXAPARIN 40 MG/0.4 ML SYG SC (09:33)
[2018-01-03] MEDS: INSULIN GLARGINE [LANtus] 3 ML PEN SC (20:27)
[2018-01-04] MEDS: ACCU-CHEK XX (02:38)
[2018-01-04] MEDS: VANCOMYCIN 750 MG in SOD CHLORIDE 0.9% 150 ML IVPB ×2 (05:41→17:23)
[2018-01-04 06:10] LABS: ADD MAN DIFF? NO
[2018-01-04 06:19] LABS: WHITE BLOOD COUNT 6.2 10^3/ul (4.8-10.8)
[2018-01-04 06:19] LABS: BASOPHILS % 0.5 % (0.0-2.0); EOSINOPHILS # 0.3 10^3/ul (0.0-0.5); EOSINOPHILS % 4.7 % (0.0-7.0); HEMATOCRIT 23.3 % (42.0-52.0); HEMOGLOBIN 8.3 g/dl (14.0-18.0); LYMPHOCYTES # 1.4 10^3/ul (0.8-2.9); LYMPHOCYTES % 21.9 % (15.0-51.0); MEAN CORPUSCULAR HEMOGLOBIN 32.7 pg (29.0-33.0); MEAN CORPUSCULAR HGB CONC 35.6 g/dl (32.0-37.0); MEAN CORPUSCULAR VOLUME 91.7 fl (82.0-101.0); MEAN PLATELET VOLUME 9.2 fl (7.4-10.4); MONOCYTE # 0.4 10^3/ul (0.3-0.9); MONOCYTES % 5.6 % (0.0-11.0); NEUTROPHIL # 4.2 10^3/ul (1.6-7.5); PLATELET COUNT 270 10^3/UL (140-415); RED BLOOD COUNT 2.54 10^6/ul (4.70-6.10); RED CELL DISTRIBUTION WIDTH 10.8 % (11.5-14.5)
[2018-01-04] MEDS: INSULIN ASPART [NOVOLOG] 3 ML PEN SC ×7 (08:07→21:00)
[2018-01-04] MEDS: PENTOXIFYLLINE (SR) 400 MG TAB PO ×3 (08:08→21:53)
[2018-01-04] MEDS: CLOPIDOGREL 75 MG TAB PO (08:08)
[2018-01-04] MEDS: FAMOTIDINE 20 MG TAB PO ×2 (08:08→21:56)
[2018-01-04] MEDS: ENOXAPARIN 40 MG/0.4 ML SYG SC (08:10)
[2018-01-04] MEDS: FERROUS SULFATE (EC) 325 MG TAB PO (21:56)
[2018-01-04] MEDS: INSULIN GLARGINE [LANtus] 3 ML PEN SC (22:02)
[2018-01-05] MEDS: ACCU-CHEK XX (02:00)
[2018-01-05 06:05] LABS: BLOOD UREA NITROGEN 19 mg/dl (7-20)
[2018-01-05] MEDS: VANCOMYCIN 750 MG in SOD CHLORIDE 0.9% 150 ML IVPB (07:58)
[2018-01-05] MEDS: CLOPIDOGREL 75 MG TAB PO (07:59)
[2018-01-05] MEDS: FAMOTIDINE 20 MG TAB PO ×2 (07:59→22:25)
[2018-01-05] MEDS: PENTOXIFYLLINE (SR) 400 MG TAB PO ×3 (07:59→22:24)
[2018-01-05] MEDS: FERROUS SULFATE (EC) 325 MG TAB PO ×2 (08:04→22:24)
[2018-01-05] MEDS: INSULIN ASPART [NOVOLOG] 3 ML PEN SC ×7 (08:15→22:30)
[2018-01-05] MEDS: ENOXAPARIN 40 MG/0.4 ML SYG SC (08:21)
[2018-01-05] MEDS: EPOETIN ALFA (NESRD) 3,000 UNITS/ML VIAL SC (17:52)
[2018-01-05] MEDS: VANCOMYCIN 500MG/NS (PMX) 100 ML IVPB (17:53)
[2018-01-05] MEDS: INSULIN GLARGINE [LANtus] 3 ML PEN SC (21:00)
[2018-01-06] MEDS: ACCU-CHEK XX (01:57)
[2018-01-06] MEDS: VANCOMYCIN 500MG/NS (PMX) 100 ML IVPB ×2 (05:32→17:40)
[2018-01-06] MEDS: INSULIN ASPART [NOVOLOG] 3 ML PEN SC ×7 (08:06→20:42)
[2018-01-06] MEDS: PENTOXIFYLLINE (SR) 400 MG TAB PO ×3 (09:14→20:42)
[2018-01-06] MEDS: FAMOTIDINE 20 MG TAB PO ×2 (09:14→20:41)
[2018-01-06] MEDS: FERROUS SULFATE (EC) 325 MG TAB PO ×2 (09:14→20:41)
[2018-01-06] MEDS: CLOPIDOGREL 75 MG TAB PO (09:14)
[2018-01-06] MEDS: ENOXAPARIN 40 MG/0.4 ML SYG SC (09:15)
[2018-01-06] MEDS: INSULIN GLARGINE [LANtus] 3 ML PEN SC (20:46)
[2018-01-07] MEDS: ACCU-CHEK XX (02:00)
[2018-01-07] MEDS: VANCOMYCIN 500MG/NS (PMX) 100 ML IVPB (05:50)
[2018-01-07] MEDS: FERROUS SULFATE (EC) 325 MG TAB PO (08:02)
[2018-01-07] MEDS: PENTOXIFYLLINE (SR) 400 MG TAB PO ×2 (08:02→12:01)
[2018-01-07] MEDS: INSULIN ASPART [NOVOLOG] 3 ML PEN SC ×4 (08:02→12:04)
[2018-01-07] MEDS: FAMOTIDINE 20 MG TAB PO (08:02)
[2018-01-07] MEDS: CLOPIDOGREL 75 MG TAB PO (08:02)
[2018-01-07] MEDS: ENOXAPARIN 40 MG/0.4 ML SYG SC (08:08)
[2018-01-07] MEDS: DOXYCYCLINE 100 MG TAB PO (11:22)
== END 2018-01-07 16:15 | disposition home or self-care (01) | DRG 854 ==
LOC: E/R 16:30 → MS2 12-20 14:57 → MS4 18:22
PROC: 047S3ZZ Dilation of Left Posterior Tibial Artery, Percutaneous Approach (ICD-10-PCS; principal; 2017-12-29 14:07)
PROC: 047W3ZZ Dilation of Left Foot Artery, Percutaneous Approach (ICD-10-PCS; 2017-12-29 14:07)
PROC: 0Y6N0ZF Detachment at Left Foot, Partial 5th Ray, Open Approach (ICD-10-PCS; 2017-12-29 14:07)
PROC: B41DYZZ Fluoroscopy of Aorta and Bilateral Lower Extremity Arteries using Other Contrast (ICD-10-PCS; 2017-12-29 14:07)
DX: A41.9 Sepsis, unspecified organism (principal); L03.116 Cellulitis of left lower limb; L97.422 Non-pressure chronic ulcer of left heel and midfoot with fat layer exposed; E11.52 Type 2 diabetes mellitus with diabetic peripheral angiopathy with gangrene; I70.262 Atherosclerosis of native arteries of extremities with gangrene, left leg; N17.9 Acute kidney failure, unspecified; E87.1 Hypo-osmolality and hyponatremia; M86.172 Other acute osteomyelitis, left ankle and foot; E11.621 Type 2 diabetes mellitus with foot ulcer; I10 Essential (primary) hypertension; E11.21 Type 2 diabetes mellitus with diabetic nephropathy; E11.69 Type 2 diabetes mellitus with other specified complication; D64.9 Anemia, unspecified; E11.65 Type 2 diabetes mellitus with hyperglycemia; E11.42 Type 2 diabetes mellitus with diabetic polyneuropathy
CPT/HCPCS: 36415; 37248; 37249; 71045; 73630; 73630-LT; 75710; 76937; 80048; 80053; 80202; 81001; 82565; 82947; 82962; 83036; 83605; 83735; 84100; 84484; 84520; 85014; 85018; 85025; 85610; 85651; 85730; 86140; 87040; 87070; 87086; 88305; 88311; 93005; 93922; 93971; 96365; 96375; 99291-25

== ENCOUNTER 2018-04-17 14:26 | Emergency (ER) | payer OTHER ==
[2018-04-17 16:46] LABS: ADD MAN DIFF? NO
[2018-04-17 16:51] LABS: BASOPHILS % 0.5 % (0.0-2.0); EOSINOPHILS # 0.3 10^3/ul (0.0-0.5); EOSINOPHILS % 5.2 % (0.0-7.0); HEMATOCRIT 25.8 % (42.0-52.0); HEMOGLOBIN 9.1 g/dl (14.0-18.0); LYMPHOCYTES # 1.8 10^3/ul (0.8-2.9); LYMPHOCYTES % 30.5 % (15.0-51.0); MEAN CORPUSCULAR HEMOGLOBIN 32.2 pg (29.0-33.0); MEAN CORPUSCULAR HGB CONC 35.3 g/dl (32.0-37.0); MEAN CORPUSCULAR VOLUME 91.2 fl (82.0-101.0); MEAN PLATELET VOLUME 9.3 fl (7.4-10.4); MONOCYTE # 0.4 10^3/ul (0.3-0.9); MONOCYTES % 6.2 % (0.0-11.0); NEUTROPHIL # 3.4 10^3/ul (1.6-7.5); NEUTROPHILS % 57.3 % (39.0-77.0); PLATELET COUNT 189 10^3/UL (140-415); RED BLOOD COUNT 2.83 10^6/ul (4.70-6.10); RED CELL DISTRIBUTION WIDTH 12.3 % (11.5-14.5)
[2018-04-17] MEDS: CEFAZOLIN 1 GM/50 ML (PMX) 50 ML IVPB (16:54)
[2018-04-17] MEDS: SOD CHLORIDE 0.9% 1,000 ML IV (16:54)
[2018-04-17 17:12] LABS: INR 0.99; PROTIME 13.2 Sec (11.9-14.9)
[2018-04-17 17:13] LABS: ALANINE AMINOTRANSFERASE 34 IU/L (13-69); ALBUMIN 3.9 g/dl (3.3-4.9); ALBUMIN/GLOBULIN RATIO 1.11; ALKALINE PHOSPHATASE 73 IU/L (42-121); ANION GAP 8 (5-13); ASPARTATE AMINO TRANSFERASE 27 IU/L (15-46); BILIRUBIN,INDIRECT 0.6 mg/dl (0-1.1); BILIRUBIN,TOTAL 0.6 mg/dl (0.2-1.3); BLOOD UREA NITROGEN 41 mg/dl (7-20); CALCIUM 9.1 mg/dl (8.4-10.2); CARBON DIOXIDE 28 mmol/L (21-31); CHLORIDE 107 mmol/L (97-110); CREATININE 1.67 mg/dl (0.61-1.24); GLUCOSE 137 mg/dl (70-220); PARTIAL THROMBOPLASTIN TIME 33.3 Sec (23.0-35.0); POTASSIUM 4.5 mmol/L (3.5-5.1); SODIUM 143 mmol/L (135-144); TOTAL PROTEIN 7.4 g/dl (6.1-8.1)
== END 2018-04-17 19:52 | disposition home or self-care (01) ==
LOC: E/R 14:26
DX: L03.032 Cellulitis of left toe (principal); E11.9 Type 2 diabetes mellitus without complications
CPT/HCPCS: 73630; 73630-LT; 80053; 85025; 85610; 85730; 87040; 96374; 99284-25

== ENCOUNTER 2018-05-15 15:38 | Inpatient (IN) | payer OTHER ==
[2018-05-15] MEDS: VANCOMYCIN 1 GM (PMX) 250 ML IVPB (16:42)
[2018-05-15] MEDS: SODIUM CHLORIDE 0.9% 1L BAG IV* (16:52)
[2018-05-15] MEDS: PIPER-TAZO 3.375 GM IV (PMX) 100 ML IVPB (16:52)
[2018-05-15] MEDS: ACETAMINOPHEN 500 MG TAB PO (16:53)
[2018-05-15 16:55] LABS: ADD MAN DIFF? NO
[2018-05-15 17:02] LABS: BASOPHILS % 0.2 % (0.0-2.0); EOSINOPHILS # 0.2 10^3/ul (0.0-0.5); EOSINOPHILS % 2.6 % (0.0-7.0); HEMATOCRIT 21.6 % (42.0-52.0); HEMOGLOBIN 7.5 g/dl (14.0-18.0); LYMPHOCYTES # 1.2 10^3/ul (0.8-2.9); LYMPHOCYTES % 17.8 % (15.0-51.0); MEAN CORPUSCULAR HEMOGLOBIN 32.5 pg (29.0-33.0); MEAN CORPUSCULAR HGB CONC 34.7 g/dl (32.0-37.0); MEAN CORPUSCULAR VOLUME 93.5 fl (82.0-101.0); MONOCYTE # 0.5 10^3/ul (0.3-0.9); MONOCYTES % 8.1 % (0.0-11.0); NEUTROPHIL # 4.6 10^3/ul (1.6-7.5); NEUTROPHILS % 71.1 % (39.0-77.0); PLATELET COUNT 203 10^3/UL (140-415); RED BLOOD COUNT 2.31 10^6/ul (4.70-6.10); RED CELL DISTRIBUTION WIDTH 11.8 % (11.5-14.5)
[2018-05-15 17:02] LABS: WHITE BLOOD COUNT 6.5 10^3/ul (4.8-10.8)
[2018-05-15 17:21] LABS: ALANINE AMINOTRANSFERASE 26 IU/L (13-69); ALBUMIN 3.8 g/dl (3.3-4.9); ALBUMIN/GLOBULIN RATIO 1.05; ALKALINE PHOSPHATASE 97 IU/L (42-121); ANION GAP 9 (5-13); ASPARTATE AMINO TRANSFERASE 34 IU/L (15-46); BILIRUBIN,INDIRECT 0.4 mg/dl (0-1.1); BILIRUBIN,TOTAL 0.4 mg/dl (0.2-1.3); BLOOD UREA NITROGEN 31 mg/dl (7-20); CALCIUM 8.9 mg/dl (8.4-10.2); CARBON DIOXIDE 23 mmol/L (21-31); CHLORIDE 105 mmol/L (97-110); CREATININE 1.73 mg/dl (0.61-1.24); Estimated GFR 42 mL/min (>60); GLUCOSE 133 mg/dl (70-220); POTASSIUM 5.3 mmol/L (3.5-5.1); SODIUM 137 mmol/L (135-144); TOTAL PROTEIN 7.4 g/dl (6.1-8.1)
[2018-05-15 17:23] LABS: INR 1.05; PARTIAL THROMBOPLASTIN TIME 35.5 Sec (23.0-35.0); PROTIME 13.8 Sec (11.9-14.9); PT RATIO 1.1
[2018-05-15] MEDS ORDERED: ACETAMINOPHEN 325 MG TAB PO ×2 (18:00→23:30)
[2018-05-15] MEDS ORDERED: ONDANSETRON 4 MG INJ IV ×2 (18:00→23:30)
[2018-05-15] MEDS: NA POLYST SULFON 15 GM/60 ML BTL PO (21:42)
[2018-05-15 23:07] LABS: LACTIC ACID 1.1 mmol/L (0.5-2.0)
[2018-05-15] MEDS ORDERED: VANCOMYCIN IV PER PHARMACY XX (23:30)
[2018-05-15] MEDS: HYDROCODONE/APAP (5/325) TAB PO (23:48)
[2018-05-15] MEDS: SOD CHLORIDE 0.9% 1,000 ML IV (23:48)
[2018-05-16] MEDS: ACCU-CHEK XX ×4 (01:44→23:39)
[2018-05-16 06:10] LABS: ADD MAN DIFF? NO
[2018-05-16 06:17] LABS: BASOPHILS % 0.2 % (0.0-2.0); EOSINOPHILS # 0.2 10^3/ul (0.0-0.5); HEMATOCRIT 24.5 % (42.0-52.0); HEMOGLOBIN 8.4 g/dl (14.0-18.0); LYMPHOCYTES # 1.2 10^3/ul (0.8-2.9); LYMPHOCYTES % 23.1 % (15.0-51.0); MEAN CORPUSCULAR HEMOGLOBIN 32.7 pg (29.0-33.0); MEAN CORPUSCULAR HGB CONC 34.3 g/dl (32.0-37.0); MEAN CORPUSCULAR VOLUME 95.3 fl (82.0-101.0); MEAN PLATELET VOLUME 9.5 fl (7.4-10.4); MONOCYTE # 0.4 10^3/ul (0.3-0.9); MONOCYTES % 8.2 % (0.0-11.0); NEUTROPHIL # 3.2 10^3/ul (1.6-7.5); NEUTROPHILS % 64.3 % (39.0-77.0); PLATELET COUNT 196 10^3/UL (140-415); RED BLOOD COUNT 2.57 10^6/ul (4.70-6.10); RED CELL DISTRIBUTION WIDTH 11.9 % (11.5-14.5)
[2018-05-16] MEDS: PANTOPRAZOLE 40 MG INJ IV (06:24)
[2018-05-16 06:30] LABS: ANION GAP 10 (5-13); BLOOD UREA NITROGEN 23 mg/dl (7-20); CALCIUM 8.7 mg/dl (8.4-10.2); CARBON DIOXIDE 22 mmol/L (21-31); CHLORIDE 113 mmol/L (97-110); CREATININE 1.37 mg/dl (0.61-1.24); Estimated GFR 54 mL/min (>60); GLUCOSE 140 mg/dl (70-220); POTASSIUM 4.6 mmol/L (3.5-5.1); SODIUM 145 mmol/L (135-144)
[2018-05-16] MEDS: INSULIN ASPART [NOVOLOG] 3 ML PEN SC ×4 (07:59→20:25)
[2018-05-16] MEDS: CEFEPIME 1GM/50 ML (PMX) 50 ML IVPB ×2 (08:30→20:23)
[2018-05-16] MEDS: VANCOMYCIN 500MG/NS (PMX) 100 ML IVPB ×2 (12:00→23:33)
[2018-05-16] MEDS: ENOXAPARIN 30 MG/0.3 ML SYG SC (12:02)
[2018-05-16] MEDS: AMLODIPINE 5 MG TAB PO (16:16)
[2018-05-16] MEDS: SOD CHLORIDE 0.9% 1,000 ML IV (16:16)
[2018-05-16] MEDS: LINAGLIPTIN 5 MG TABLET PO (17:39)
[2018-05-16] MEDS: INSULIN GLARGINE [LANTus] (100 UNITS/ML) SYG SC (20:25)
[2018-05-17] MEDS: PANTOPRAZOLE 40 MG INJ IV (05:45)
[2018-05-17] MEDS: ACCU-CHEK XX ×4 (07:30→21:35)
[2018-05-17] MEDS: INSULIN ASPART [NOVOLOG] 3 ML PEN SC ×4 (08:00→20:44)
[2018-05-17] MEDS: ENOXAPARIN 30 MG/0.3 ML SYG SC (08:41)
[2018-05-17] MEDS: LINAGLIPTIN 5 MG TABLET PO (08:41)
[2018-05-17] MEDS: AMLODIPINE 5 MG TAB PO (08:41)
[2018-05-17] MEDS: CEFEPIME 1GM/50 ML (PMX) 50 ML IVPB ×2 (08:41→20:44)
[2018-05-17] MEDS: VANCOMYCIN 500MG/NS (PMX) 100 ML IVPB (12:17)
[2018-05-17] MEDS: INSULIN GLARGINE [LANTus] (100 UNITS/ML) SYG SC (20:42)
[2018-05-17 23:43] LABS: VANCOMYCIN,TROUGH 7.4 ug/ml (10.0-20.0)
[2018-05-18] MEDS: VANCOMYCIN 500MG/NS (PMX) 100 ML IVPB (00:18)
[2018-05-18] MEDS: ACCU-CHEK XX ×5 (02:00→21:00)
[2018-05-18] MEDS: PANTOPRAZOLE 40 MG INJ IV (05:30)
[2018-05-18 06:27] LABS: ADD MAN DIFF? NO
[2018-05-18 06:32] LABS: BASOPHILS % 0.4 % (0.0-2.0); EOSINOPHILS # 0.2 10^3/ul (0.0-0.5); EOSINOPHILS % 3.3 % (0.0-7.0); HEMATOCRIT 22.5 % (42.0-52.0); HEMOGLOBIN 7.8 g/dl (14.0-18.0); LYMPHOCYTES # 1.2 10^3/ul (0.8-2.9); LYMPHOCYTES % 22.5 % (15.0-51.0); MEAN CORPUSCULAR HEMOGLOBIN 32.6 pg (29.0-33.0); MEAN CORPUSCULAR HGB CONC 34.7 g/dl (32.0-37.0); MEAN CORPUSCULAR VOLUME 94.1 fl (82.0-101.0); MEAN PLATELET VOLUME 9.3 fl (7.4-10.4); MONOCYTE # 0.4 10^3/ul (0.3-0.9); MONOCYTES % 7.1 % (0.0-11.0); NEUTROPHIL # 3.6 10^3/ul (1.6-7.5); NEUTROPHILS % 66.5 % (39.0-77.0); PLATELET COUNT 213 10^3/UL (140-415); RED BLOOD COUNT 2.39 10^6/ul (4.70-6.10); RED CELL DISTRIBUTION WIDTH 11.6 % (11.5-14.5)
[2018-05-18 06:32] LABS: WHITE BLOOD COUNT 5.4 10^3/ul (4.8-10.8)
[2018-05-18 07:11] LABS: ANION GAP 9 (5-13); BLOOD UREA NITROGEN 19 mg/dl (7-20); CALCIUM 8.9 mg/dl (8.4-10.2); CARBON DIOXIDE 26 mmol/L (21-31); CHLORIDE 109 mmol/L (97-110); CREATININE 1.14 mg/dl (0.61-1.24); Estimated GFR > 60 mL/min (>60); GLUCOSE 87 mg/dl (70-220); POTASSIUM 4.4 mmol/L (3.5-5.1); SODIUM 144 mmol/L (135-144)
[2018-05-18 07:15] LABS: PHOSPHORUS 3.8 mg/dl (2.5-4.9)
[2018-05-18] MEDS: INSULIN ASPART [NOVOLOG] 3 ML PEN SC ×4 (07:52→20:39)
[2018-05-18] MEDS: VANCOMYCIN 750 MG in SOD CHLORIDE 0.9% 150 ML IVPB (07:52)
[2018-05-18] MEDS ORDERED: GLUCOSE GEL 15 GRAM TUBE PO ×2 (08:00)
[2018-05-18] MEDS ORDERED: GLUCOSE GEL 15 GRAM TUBE BUCCAL (08:00)
[2018-05-18] MEDS ORDERED: GLUCAGON 1 MG INJ IM (08:00)
[2018-05-18] MEDS ORDERED: DEXTROSE 50% 50 ML SYRINGE IV ×2 (08:00)
[2018-05-18] MEDS: AMLODIPINE 5 MG TAB PO (09:32)
[2018-05-18] MEDS: LINAGLIPTIN 5 MG TABLET PO (09:32)
[2018-05-18] MEDS: ENOXAPARIN 30 MG/0.3 ML SYG SC (09:33)
[2018-05-18] MEDS: CEFEPIME 1GM/50 ML (PMX) 50 ML IVPB ×2 (10:08→20:37)
[2018-05-18] MEDS: INSULIN GLARGINE [LANTus] (100 UNITS/ML) SYG SC (20:22)
[2018-05-18] MEDS: VANCOMYCIN 1 GM 250 ML IVPB (20:40)
[2018-05-19] MEDS: ACCU-CHEK XX ×3 (02:00→20:35)
[2018-05-19] MEDS: PANTOPRAZOLE 40 MG INJ IV (05:49)
[2018-05-19 06:12] LABS: RETICULOCYTE COUNT % 1.6 % (0.5-1.5)
[2018-05-19 06:12] LABS: RETICULOCYTE RBC 2.49
[2018-05-19 07:20] LABS: IRON 49 ug/dl (35-150)
[2018-05-19 07:30] LABS: % IRON SATURATION 21 % SAT (22-52); TOTAL IRON BINDING CAPACITY 237 ug/dl (241-421)
[2018-05-19] MEDS: INSULIN ASPART [NOVOLOG] 3 ML PEN SC ×2 (08:00→21:00)
[2018-05-19 08:17] LABS: FOLATE 11.7 ng/ml (2.8-20.0)
[2018-05-19] MEDS: LINAGLIPTIN 5 MG TABLET PO (09:00)
[2018-05-19] MEDS: AMLODIPINE 5 MG TAB PO (09:00)
[2018-05-19] MEDS: ENOXAPARIN 30 MG/0.3 ML SYG SC (09:00)
[2018-05-19] MEDS: CEFEPIME 1GM/50 ML (PMX) 50 ML IVPB ×2 (09:20→21:01)
[2018-05-19] MEDS: VANCOMYCIN 1 GM 250 ML IVPB ×2 (11:09→21:50)
[2018-05-19] MEDS ORDERED: INSULIN ASPART [NOVOLOG] 3 ML PEN SC (13:00)
[2018-05-19] MEDS ORDERED: ONDANSETRON 4 MG INJ (14:57)
[2018-05-19] MEDS ORDERED: PROPOFOL 20 ML (14:57)
[2018-05-19] MEDS ORDERED: METOCLOPRAMIDE 10 MG INJ (14:57)
[2018-05-19] MEDS ORDERED: ROPIVACAINE 0.5 % 30 ML VIAL (14:58)
[2018-05-19] MEDS ORDERED: MIDAZOLAM 1 MG/ML 2 ML INJ (14:59)
[2018-05-19] MEDS ORDERED: FENTAnyl 50 MCG/ML VIAL (14:59)
[2018-05-19] MEDS ORDERED: HYDROmorphONE 1 MG/5 ML IV SYRINGE IV ×3 (15:00)
[2018-05-19] MEDS ORDERED: hydrALAzine 20 MG INJ IV (15:00)
[2018-05-19] MEDS ORDERED: MEPERIDINE 25 MG INJ IV (15:00)
[2018-05-19] MEDS ORDERED: LABETALOL HCL 20MG INJ IV (15:00)
[2018-05-19] MEDS ORDERED: DIPHENHYDRAMINE 50 MG INJ IV (15:00)
[2018-05-19] MEDS ORDERED: ONDANSETRON 4 MG INJ IV (15:00)
[2018-05-19] MEDS: POLYMYXIN/BACITRACIN 1L IRRIG IRR (15:51)
[2018-05-19] MEDS ORDERED: OXYCODONE/ACETAMINOPHEN (5/325) TAB PO (17:00)
[2018-05-19] MEDS: DEXTROSE 5%-0.45% NACL 1,000 ML IV (21:00)
[2018-05-19] MEDS: INSULIN GLARGINE [LANTus] (100 UNITS/ML) SYG SC (21:01)
[2018-05-20] MEDS: ACCU-CHEK XX ×4 (01:04→17:34)
[2018-05-20] MEDS ORDERED: ACCU-CHEK XX ×2 (02:00)
[2018-05-20] MEDS: PANTOPRAZOLE 40 MG INJ IV (05:39)
[2018-05-20] MEDS: INSULIN ASPART [NOVOLOG] 3 ML PEN SC ×3 (08:00→17:34)
[2018-05-20] MEDS: CEFEPIME 1GM/50 ML (PMX) 50 ML IVPB (08:40)
[2018-05-20] MEDS: LINAGLIPTIN 5 MG TABLET PO (08:41)
[2018-05-20] MEDS: AMLODIPINE 5 MG TAB PO (08:42)
[2018-05-20] MEDS: ENOXAPARIN 30 MG/0.3 ML SYG SC (08:43)
[2018-05-20 08:49] LABS: ADD MAN DIFF? NO
[2018-05-20 08:54] LABS: WHITE BLOOD COUNT 4.6 10^3/ul (4.8-10.8)
[2018-05-20 08:54] LABS: BASOPHILS % 0.4 % (0.0-2.0); EOSINOPHILS # 0.2 10^3/ul (0.0-0.5); EOSINOPHILS % 3.7 % (0.0-7.0); HEMATOCRIT 22.8 % (42.0-52.0); HEMOGLOBIN 7.9 g/dl (14.0-18.0); LYMPHOCYTES % 21.4 % (15.0-51.0); MEAN CORPUSCULAR HEMOGLOBIN 32.2 pg (29.0-33.0); MEAN CORPUSCULAR HGB CONC 34.6 g/dl (32.0-37.0); MEAN CORPUSCULAR VOLUME 93.1 fl (82.0-101.0); MEAN PLATELET VOLUME 9.2 fl (7.4-10.4); MONOCYTE # 0.3 10^3/ul (0.3-0.9); MONOCYTES % 7.1 % (0.0-11.0); NEUTROPHIL # 3.1 10^3/ul (1.6-7.5); NEUTROPHILS % 67.2 % (39.0-77.0); PLATELET COUNT 194 10^3/UL (140-415); RED BLOOD COUNT 2.45 10^6/ul (4.70-6.10); RED CELL DISTRIBUTION WIDTH 11.7 % (11.5-14.5)
[2018-05-20 09:13] LABS: PHOSPHORUS 3.8 mg/dl (2.5-4.9)
[2018-05-20 09:16] LABS: ANION GAP 7 (5-13); BLOOD UREA NITROGEN 21 mg/dl (7-20); CALCIUM 8.8 mg/dl (8.4-10.2); CARBON DIOXIDE 29 mmol/L (21-31); CHLORIDE 108 mmol/L (97-110); CREATININE 1.11 mg/dl (0.61-1.24); Estimated GFR > 60 mL/min (>60); GLUCOSE 114 mg/dl (70-220); POTASSIUM 4.3 mmol/L (3.5-5.1); SODIUM 144 mmol/L (135-144)
[2018-05-20 09:18] LABS: VANCOMYCIN,TROUGH 16.3 ug/ml (10.0-20.0)
[2018-05-20] MEDS: DEXTROSE 5%-0.45% NACL 1,000 ML IV (10:00)
[2018-05-20] MEDS: VANCOMYCIN 1 GM 250 ML IVPB (10:23)
== END 2018-05-20 18:57 | disposition home health service (06) | DRG 617 ==
LOC: E/R 15:38 → PP2 17:44
PROVIDERS: Internal Medicine
PROC: 0Y6W0Z0 Detachment at Left 4th Toe, Complete, Open Approach (ICD-10-PCS; principal; 2018-05-19 14:58)
DX: E11.621 Type 2 diabetes mellitus with foot ulcer (principal); E11.52 Type 2 diabetes mellitus with diabetic peripheral angiopathy with gangrene; M86.8X7 Other osteomyelitis, ankle and foot; I96 Gangrene, not elsewhere classified; L03.116 Cellulitis of left lower limb; E11.69 Type 2 diabetes mellitus with other specified complication; N17.9 Acute kidney failure, unspecified; Z68.28 Body mass index [BMI] 28.0-28.9, adult; E87.5 Hyperkalemia; L97.529 Non-pressure chronic ulcer of other part of left foot with unspecified severity; E11.22 Type 2 diabetes mellitus with diabetic chronic kidney disease; N18.9 Chronic kidney disease, unspecified; I12.9 Hypertensive chronic kidney disease with stage 1 through stage 4 chronic kidney disease, or unspecified chronic kidney disease; E66.9 Obesity, unspecified; E11.42 Type 2 diabetes mellitus with diabetic polyneuropathy; D63.8 Anemia in other chronic diseases classified elsewhere; Z89.422 Acquired absence of other left toe(s); Z79.4 Long term (current) use of insulin
CPT/HCPCS: 36415; 73630-LT; 73718; 80048; 80053; 80202; 82607; 82746; 82962; 83540; 83605; 83735; 84100; 85025; 85045; 85610; 85730; 87040; 88305; 88311; 90686; 96374; 96375; 97161; 99291-25

== ENCOUNTER 2018-09-04 15:40 | Inpatient (IN) | payer OTHER ==
[2018-09-04 21:24] LABS: ADD MAN DIFF? NO
[2018-09-04 21:26] LABS: BASOPHILS % 0.2 % (0.0-2.0); EOSINOPHILS # 0.2 10^3/ul (0.0-0.5); HEMATOCRIT 24.7 % (42.0-52.0); HEMOGLOBIN 8.7 g/dl (14.0-18.0); LYMPHOCYTES # 1.7 10^3/ul (0.8-2.9); LYMPHOCYTES % 19.3 % (15.0-51.0); MEAN CORPUSCULAR HEMOGLOBIN 32.1 pg (29.0-33.0); MEAN CORPUSCULAR HGB CONC 35.2 g/dl (32.0-37.0); MEAN CORPUSCULAR VOLUME 91.1 fl (82.0-101.0); MEAN PLATELET VOLUME 9.3 fl (7.4-10.4); MONOCYTE # 0.8 10^3/ul (0.3-0.9); MONOCYTES % 9.2 % (0.0-11.0); PLATELET COUNT 186 10^3/UL (140-415); RED BLOOD COUNT 2.71 10^6/ul (4.70-6.10); RED CELL DISTRIBUTION WIDTH 12.2 % (11.5-14.5)
[2018-09-04 21:26] LABS: WHITE BLOOD COUNT 8.7 10^3/ul (4.8-10.8)
[2018-09-04] MEDS: SOD CHLORIDE 0.9% 500 ML IV (21:34)
[2018-09-04] MEDS: KETOROLAC 15 MG INJ IV (21:34)
[2018-09-04] MEDS: CEFEPIME 1GM/50 ML (PMX) 50 ML IVPB (21:35)
[2018-09-04 21:44] LABS: AMMONIA 20 umol/l (9-30)
[2018-09-04 21:46] LABS: INR 1.07; PT RATIO 1.1
[2018-09-04 21:57] LABS: PARTIAL THROMBOPLASTIN TIME 45.7 Sec (23.0-35.0)
[2018-09-04 21:59] LABS: ALANINE AMINOTRANSFERASE 28 IU/L (13-69); ALBUMIN 3.5 g/dl (3.3-4.9); ALBUMIN/GLOBULIN RATIO 1.02; ALKALINE PHOSPHATASE 82 IU/L (42-121); ANION GAP 10 (5-13); ASPARTATE AMINO TRANSFERASE 30 IU/L (15-46); BLOOD UREA NITROGEN 32 mg/dl (7-20); CARBON DIOXIDE 25 mmol/L (21-31); CHLORIDE 104 mmol/L (97-110); CREATININE 1.79 mg/dl (0.61-1.24); Estimated GFR 40 mL/min (>60); GLUCOSE 171 mg/dl (70-220); LIPASE 31 U/L (23-300); POTASSIUM 4.4 mmol/L (3.5-5.1); SODIUM 139 mmol/L (135-144); TOTAL PROTEIN 6.9 g/dl (6.1-8.1)
[2018-09-04 22:02] LABS: ETHANOL < 10.0 mg/dl (0-0)
[2018-09-04 22:13] LABS: C-REACTIVE PROTEIN 16.4 mg/dl (0.0-0.9)
[2018-09-04] MEDS: VANCOMYCIN 1 GM (PMX) 250 ML IVPB (22:16)
[2018-09-05] MEDS ORDERED: HYDROCODONE/APAP (5/325) TAB PO (01:30)
[2018-09-05] MEDS ORDERED: GLUCOSE GEL 15 GRAM TUBE PO ×2 (02:00)
[2018-09-05] MEDS ORDERED: PENDING SANTYL ORDER FOR WOUND CARE XX (02:00)
[2018-09-05] MEDS ORDERED: DEXTROSE 50% 50 ML SYRINGE IV ×2 (02:00)
[2018-09-05] MEDS ORDERED: GLUCOSE GEL 15 GRAM TUBE BUCCAL (02:00)
[2018-09-05] MEDS ORDERED: GLUCAGON 1 MG INJ IM (02:00)
[2018-09-05] MEDS: PANTOPRAZOLE (EC) 40 MG TAB PO (06:04)
[2018-09-05 06:22] LABS: ADD MAN DIFF? NO
[2018-09-05 06:29] LABS: BASOPHILS % 0.3 % (0.0-2.0); EOSINOPHILS # 0.2 10^3/ul (0.0-0.5); EOSINOPHILS % 2.3 % (0.0-7.0); HEMATOCRIT 21.2 % (42.0-52.0); HEMOGLOBIN 7.4 g/dl (14.0-18.0); LYMPHOCYTES # 1.2 10^3/ul (0.8-2.9); LYMPHOCYTES % 17.7 % (15.0-51.0); MEAN CORPUSCULAR HEMOGLOBIN 32.6 pg (29.0-33.0); MEAN CORPUSCULAR HGB CONC 34.9 g/dl (32.0-37.0); MEAN CORPUSCULAR VOLUME 93.4 fl (82.0-101.0); MEAN PLATELET VOLUME 10.1 fl (7.4-10.4); MONOCYTE # 0.6 10^3/ul (0.3-0.9); MONOCYTES % 9.1 % (0.0-11.0); NEUTROPHIL # 4.5 10^3/ul (1.6-7.5); NEUTROPHILS % 70.1 % (39.0-77.0); PLATELET COUNT 157 10^3/UL (140-415); RED BLOOD COUNT 2.27 10^6/ul (4.70-6.10); RED CELL DISTRIBUTION WIDTH 11.9 % (11.5-14.5)
[2018-09-05 06:29] LABS: WHITE BLOOD COUNT 6.5 10^3/ul (4.8-10.8)
[2018-09-05 06:54] LABS: ALANINE AMINOTRANSFERASE 18 IU/L (13-69); ALBUMIN 2.9 g/dl (3.3-4.9); ALKALINE PHOSPHATASE 68 IU/L (42-121); ANION GAP 6 (5-13); ASPARTATE AMINO TRANSFERASE 21 IU/L (15-46); BILIRUBIN,INDIRECT 1.1 mg/dl (0-1.1); BILIRUBIN,TOTAL 1.1 mg/dl (0.2-1.3); BLOOD UREA NITROGEN 32 mg/dl (7-20); CALCIUM 8.6 mg/dl (8.4-10.2); CARBON DIOXIDE 27 mmol/L (21-31); CHLORIDE 109 mmol/L (97-110); CREATININE 1.97 mg/dl (0.61-1.24); Estimated GFR 36 mL/min (>60); GLUCOSE 174 mg/dl (70-220); POTASSIUM 4.5 mmol/L (3.5-5.1); SODIUM 142 mmol/L (135-144); TOTAL PROTEIN 6.1 g/dl (6.1-8.1)
[2018-09-05] MEDS: CEFTRIAXONE 1 GM/50 ML (PMX) 50 ML IVPB (08:14)
[2018-09-05] MEDS: ENOXAPARIN 40 MG/0.4 ML SYG SC (08:20)
[2018-09-05] MEDS: INSULIN ASPART [NOVOLOG] 3 ML PEN SC ×4 (08:23→21:26)
[2018-09-05] MEDS ORDERED: VANCOMYCIN IV PER PHARMACY XX (14:00)
[2018-09-05] MEDS: LINAGLIPTIN 5 MG TABLET PO (14:27)
[2018-09-05] MEDS: SOD CHLORIDE 0.9% 1,000 ML IV (14:28)
[2018-09-05] MEDS: VANCOMYCIN 1 GM 250 ML IVPB (16:17)
[2018-09-05] MEDS: PENTOXIFYLLINE (SR) 400 MG TAB PO (21:28)
[2018-09-05] MEDS: ACETAMINOPHEN 325 MG TAB PO (21:28)
[2018-09-06] MEDS: PANTOPRAZOLE (EC) 40 MG TAB PO (05:46)
[2018-09-06 06:40] LABS: ADD MAN DIFF? NO
[2018-09-06 06:44] LABS: BASOPHILS % 0.3 % (0.0-2.0); EOSINOPHILS # 0.1 10^3/ul (0.0-0.5); EOSINOPHILS % 2.3 % (0.0-7.0); HEMATOCRIT 22.2 % (42.0-52.0); HEMOGLOBIN 7.7 g/dl (14.0-18.0); LYMPHOCYTES # 1.3 10^3/ul (0.8-2.9); LYMPHOCYTES % 20.8 % (15.0-51.0); MEAN CORPUSCULAR HEMOGLOBIN 32.4 pg (29.0-33.0); MEAN CORPUSCULAR HGB CONC 34.7 g/dl (32.0-37.0); MEAN CORPUSCULAR VOLUME 93.3 fl (82.0-101.0); MEAN PLATELET VOLUME 9.7 fl (7.4-10.4); MONOCYTE # 0.4 10^3/ul (0.3-0.9); MONOCYTES % 6.8 % (0.0-11.0); NEUTROPHIL # 4.2 10^3/ul (1.6-7.5); NEUTROPHILS % 69.3 % (39.0-77.0); PLATELET COUNT 154 10^3/UL (140-415); RED BLOOD COUNT 2.38 10^6/ul (4.70-6.10); RED CELL DISTRIBUTION WIDTH 11.9 % (11.5-14.5)
[2018-09-06 07:12] LABS: ANION GAP 7 (5-13); BLOOD UREA NITROGEN 34 mg/dl (7-20); CALCIUM 8.8 mg/dl (8.4-10.2); CARBON DIOXIDE 27 mmol/L (21-31); CHLORIDE 107 mmol/L (97-110); CREATININE 2.07 mg/dl (0.61-1.24); Estimated GFR 34 mL/min (>60); GLUCOSE 156 mg/dl (70-220); POTASSIUM 4.4 mmol/L (3.5-5.1); SODIUM 141 mmol/L (135-144)
[2018-09-06 07:16] LABS: IRON 20 ug/dl (35-150)
[2018-09-06 07:24] LABS: HEMOGLOBIN A1C 6.4 % (0-5.9)
[2018-09-06 07:25] LABS: % IRON SATURATION 9 % SAT (22-52); TOTAL IRON BINDING CAPACITY 212 ug/dl (241-421)
[2018-09-06] MEDS: PENTOXIFYLLINE (SR) 400 MG TAB PO ×3 (08:24→21:27)
[2018-09-06] MEDS: LINAGLIPTIN 5 MG TABLET PO (08:24)
[2018-09-06] MEDS: INSULIN ASPART [NOVOLOG] 3 ML PEN SC ×4 (08:26→21:00)
[2018-09-06] MEDS: ENOXAPARIN 40 MG/0.4 ML SYG SC (08:26)
[2018-09-06] MEDS: CEFTRIAXONE 1 GM/50 ML (PMX) 50 ML IVPB (10:01)
[2018-09-06] MEDS: SOD FERRIC GLUC COMPLX 125 MG in SOD CHLORIDE 0.9% 100 ML IVPB (12:46)
[2018-09-06] MEDS: SOD CHLORIDE 0.9% 1,000 ML IV (19:00)
[2018-09-06] MEDS: VANCOMYCIN 1 GM 250 ML IVPB (21:46)
[2018-09-07] MEDS: PANTOPRAZOLE (EC) 40 MG TAB PO (05:13)
[2018-09-07 08:04] LABS: ANION GAP 10 (5-13); BLOOD UREA NITROGEN 26 mg/dl (7-20); CALCIUM 8.9 mg/dl (8.4-10.2); CARBON DIOXIDE 24 mmol/L (21-31); CHLORIDE 108 mmol/L (97-110); CREATININE 1.69 mg/dl (0.61-1.24); Estimated GFR 43 mL/min (>60); GLUCOSE 162 mg/dl (70-220); POTASSIUM 4.2 mmol/L (3.5-5.1); SODIUM 142 mmol/L (135-144)
[2018-09-07] MEDS: LINAGLIPTIN 5 MG TABLET PO (08:21)
[2018-09-07] MEDS: PENTOXIFYLLINE (SR) 400 MG TAB PO ×3 (08:21→20:42)
[2018-09-07] MEDS: INSULIN ASPART [NOVOLOG] 3 ML PEN SC ×4 (08:25→20:44)
[2018-09-07] MEDS: ENOXAPARIN 40 MG/0.4 ML SYG SC (08:25)
[2018-09-07] MEDS: CEFTRIAXONE 1 GM/50 ML (PMX) 50 ML IVPB (09:04)
[2018-09-07] MEDS: SOD FERRIC GLUC COMPLX 125 MG in SOD CHLORIDE 0.9% 100 ML IVPB (13:42)
[2018-09-07] MEDS: SOD CHLORIDE 0.9% 1,000 ML IV ×2 (14:00→18:48)
[2018-09-07] MEDS: VANCOMYCIN 1 GM 250 ML IVPB (21:32)
[2018-09-08] MEDS: PANTOPRAZOLE (EC) 40 MG TAB PO (05:46)
[2018-09-08 07:09] LABS: ANION GAP 8 (5-13); BLOOD UREA NITROGEN 22 mg/dl (7-20); CALCIUM 8.8 mg/dl (8.4-10.2); CARBON DIOXIDE 26 mmol/L (21-31); CHLORIDE 108 mmol/L (97-110); CREATININE 1.57 mg/dl (0.61-1.24); Estimated GFR 46 mL/min (>60); GLUCOSE 170 mg/dl (70-220); POTASSIUM 4.2 mmol/L (3.5-5.1); SODIUM 142 mmol/L (135-144)
[2018-09-08] MEDS: CEFTRIAXONE 1 GM/50 ML (PMX) 50 ML IVPB (08:30)
[2018-09-08] MEDS: LINAGLIPTIN 5 MG TABLET PO (08:31)
[2018-09-08] MEDS: INSULIN ASPART [NOVOLOG] 3 ML PEN SC ×4 (08:32→21:19)
[2018-09-08] MEDS: ENOXAPARIN 40 MG/0.4 ML SYG SC (08:32)
[2018-09-08] MEDS: PENTOXIFYLLINE (SR) 400 MG TAB PO ×3 (08:33→21:17)
[2018-09-08] MEDS: SOD FERRIC GLUC COMPLX 125 MG in SOD CHLORIDE 0.9% 100 ML IVPB (13:05)
[2018-09-08] MEDS: AMLODIPINE 5 MG TAB PO ×2 (17:31→21:16)
[2018-09-08] MEDS: SOD CHLORIDE 0.9% 1,000 ML IV (17:36)
[2018-09-09] MEDS: SOD CHLORIDE 0.9% 1,000 ML IV ×3 (02:49→20:00)
[2018-09-09] MEDS: PANTOPRAZOLE (EC) 40 MG TAB PO (05:59)
[2018-09-09 07:17] LABS: ANION GAP 7 (5-13); BLOOD UREA NITROGEN 21 mg/dl (7-20); CALCIUM 8.7 mg/dl (8.4-10.2); CARBON DIOXIDE 26 mmol/L (21-31); CHLORIDE 109 mmol/L (97-110); CREATININE 1.57 mg/dl (0.61-1.24); Estimated GFR 46 mL/min (>60); GLUCOSE 165 mg/dl (70-220); POTASSIUM 4.4 mmol/L (3.5-5.1); SODIUM 142 mmol/L (135-144)
[2018-09-09] MEDS: PENTOXIFYLLINE (SR) 400 MG TAB PO ×3 (08:05→20:21)
[2018-09-09] MEDS: LINAGLIPTIN 5 MG TABLET PO (08:05)
[2018-09-09] MEDS: ENOXAPARIN 40 MG/0.4 ML SYG SC (08:07)
[2018-09-09] MEDS: INSULIN ASPART [NOVOLOG] 3 ML PEN SC ×4 (08:07→20:19)
[2018-09-09] MEDS: AMLODIPINE 5 MG TAB PO ×2 (08:11→20:21)
[2018-09-09] MEDS: CEFTRIAXONE 1 GM/50 ML (PMX) 50 ML IVPB (08:47)
[2018-09-09] MEDS: SOD FERRIC GLUC COMPLX 125 MG in SOD CHLORIDE 0.9% 100 ML IVPB (13:10)
[2018-09-09 20:33] LABS: ADD UMIC YES; UR ASCORBIC ACID NEGATIVE (NEGATIVE); UR BACTERIA FEW /HPF (NONE SEEN); UR BILIRUBIN (Dip) NEGATIVE (NEGATIVE); UR BLOOD (Dip) 2+ mg/dL (NEGATIVE); UR CLARITY SLIGHTLY CLOUDY (CLEAR); UR COLOR YELLOW (YELLOW); UR GLUCOSE (Dip) 2+ mg/dL (NEGATIVE); UR KETONES (Dip) NEGATIVE (NEGATIVE); UR LEUKOCYTE ESTERASE (Dip) NEGATIVE Leu/ul (NEGATIVE); UR NITRITE (Dip) NEGATIVE (NEGATIVE); UR RBC 0 /HPF (0-5); UR SPECIFIC GRAVITY (Dip) 1.016 (1.003-1.030); UR TOTAL PROTEIN (Dip) 2+ mg/dl (NEGATIVE); UR UROBILINOGEN (Dip) 1+ mg/dL (NEGATIVE); UR WBC 2 /HPF (0-5)
[2018-09-10] MEDS: SOD CHLORIDE 0.9% 1,000 ML IV ×3 (02:15→23:28)
[2018-09-10] MEDS: PANTOPRAZOLE (EC) 40 MG TAB PO (06:12)
[2018-09-10] MEDS: CEFTRIAXONE 1 GM/50 ML (PMX) 50 ML IVPB (08:19)
[2018-09-10] MEDS: PENTOXIFYLLINE (SR) 400 MG TAB PO ×3 (08:19→21:19)
[2018-09-10] MEDS: LINAGLIPTIN 5 MG TABLET PO (08:19)
[2018-09-10] MEDS: AMLODIPINE 5 MG TAB PO ×2 (08:21→21:20)
[2018-09-10] MEDS: INSULIN ASPART [NOVOLOG] 3 ML PEN SC ×4 (08:22→23:32)
[2018-09-10] MEDS: ENOXAPARIN 30 MG/0.3 ML SYG SC (08:23)
[2018-09-10 11:22] LABS: ANION GAP 7 (5-13); BLOOD UREA NITROGEN 19 mg/dl (7-20); CALCIUM 8.7 mg/dl (8.4-10.2); CARBON DIOXIDE 25 mmol/L (21-31); CHLORIDE 110 mmol/L (97-110); CREATININE 1.42 mg/dl (0.61-1.24); Estimated GFR 52 mL/min (>60); GLUCOSE 211 mg/dl (70-220); POTASSIUM 4.3 mmol/L (3.5-5.1); SODIUM 142 mmol/L (135-144)
[2018-09-10] MEDS: SOD FERRIC GLUC COMPLX 125 MG in SOD CHLORIDE 0.9% 100 ML IVPB (12:09)
[2018-09-11] MEDS: PANTOPRAZOLE (EC) 40 MG TAB PO (05:27)
[2018-09-11 06:28] LABS: ANION GAP 6 (5-13); BLOOD UREA NITROGEN 18 mg/dl (7-20); CALCIUM 8.7 mg/dl (8.4-10.2); CARBON DIOXIDE 25 mmol/L (21-31); CHLORIDE 110 mmol/L (97-110); CREATININE 1.36 mg/dl (0.61-1.24); Estimated GFR 55 mL/min (>60); GLUCOSE 152 mg/dl (70-220); SODIUM 141 mmol/L (135-144)
[2018-09-11] MEDS: CEFTRIAXONE 1 GM/50 ML (PMX) 50 ML IVPB (08:55)
[2018-09-11] MEDS: ENOXAPARIN 30 MG/0.3 ML SYG SC (08:57)
[2018-09-11] MEDS: LINAGLIPTIN 5 MG TABLET PO (08:58)
[2018-09-11] MEDS: INSULIN ASPART [NOVOLOG] 3 ML PEN SC ×4 (08:58→21:00)
[2018-09-11] MEDS: AMLODIPINE 5 MG TAB PO ×2 (08:59→21:11)
[2018-09-11] MEDS: PENTOXIFYLLINE (SR) 400 MG TAB PO ×3 (09:00→21:11)
[2018-09-11] MEDS: SOD CHLORIDE 0.9% 1,000 ML IV ×3 (09:01→19:29)
[2018-09-11] MEDS: ZINC SULFATE 220 MG CAP NGT (14:09)
[2018-09-12 05:14] LABS: ADD MAN DIFF? NO
[2018-09-12 05:17] LABS: BASOPHILS % 0.4 % (0.0-2.0); EOSINOPHILS # 0.2 10^3/ul (0.0-0.5); EOSINOPHILS % 2.8 % (0.0-7.0); HEMATOCRIT 22.2 % (42.0-52.0); HEMOGLOBIN 7.7 g/dl (14.0-18.0); LYMPHOCYTES # 1.4 10^3/ul (0.8-2.9); LYMPHOCYTES % 17.2 % (15.0-51.0); MEAN CORPUSCULAR HEMOGLOBIN 31.8 pg (29.0-33.0); MEAN CORPUSCULAR HGB CONC 34.7 g/dl (32.0-37.0); MEAN CORPUSCULAR VOLUME 91.7 fl (82.0-101.0); MEAN PLATELET VOLUME 9.5 fl (7.4-10.4); MONOCYTE # 0.6 10^3/ul (0.3-0.9); MONOCYTES % 7.5 % (0.0-11.0); NEUTROPHIL # 5.7 10^3/ul (1.6-7.5); NEUTROPHILS % 71.2 % (39.0-77.0); PLATELET COUNT 263 10^3/UL (140-415); RED BLOOD COUNT 2.42 10^6/ul (4.70-6.10); RED CELL DISTRIBUTION WIDTH 11.9 % (11.5-14.5)
[2018-09-12] MEDS: PANTOPRAZOLE (EC) 40 MG TAB PO (05:46)
[2018-09-12] MEDS: SOD CHLORIDE 0.9% 1,000 ML IV ×3 (05:48→17:32)
[2018-09-12 05:51] LABS: ANION GAP 7 (5-13); BLOOD UREA NITROGEN 19 mg/dl (7-20); CALCIUM 8.7 mg/dl (8.4-10.2); CARBON DIOXIDE 24 mmol/L (21-31); CHLORIDE 111 mmol/L (97-110); Estimated GFR 53 mL/min (>60); GLUCOSE 129 mg/dl (70-220); SODIUM 142 mmol/L (135-144)
[2018-09-12] MEDS: INSULIN ASPART [NOVOLOG] 3 ML PEN SC ×4 (08:00→20:34)
[2018-09-12] MEDS: CEFTRIAXONE 1 GM/50 ML (PMX) 50 ML IVPB (09:01)
[2018-09-12] MEDS: AMLODIPINE 5 MG TAB PO ×2 (09:02→20:34)
[2018-09-12] MEDS: PENTOXIFYLLINE (SR) 400 MG TAB PO ×3 (09:02→20:33)
[2018-09-12] MEDS: ZINC SULFATE 220 MG CAP NGT (09:02)
[2018-09-12] MEDS: LINAGLIPTIN 5 MG TABLET PO (09:02)
[2018-09-12] MEDS: ENOXAPARIN 30 MG/0.3 ML SYG SC (09:06)
[2018-09-12] MEDS: FERROUS SULFATE (EC) 325 MG TAB PO (11:52)
[2018-09-13] MEDS: SOD CHLORIDE 0.9% 1,000 ML IV ×2 (03:29→17:37)
[2018-09-13 05:22] LABS: ADD MAN DIFF? NO
[2018-09-13 05:32] LABS: WHITE BLOOD COUNT 6.9 10^3/ul (4.8-10.8)
[2018-09-13 05:32] LABS: ABNORMAL IP MESSAGE 1; BASOPHILS % 0.3 % (0.0-2.0); EOSINOPHILS # 0.2 10^3/ul (0.0-0.5); EOSINOPHILS % 2.3 % (0.0-7.0); HEMATOCRIT 18.3 % (42.0-52.0); LYMPHOCYTES # 1.3 10^3/ul (0.8-2.9); MEAN CORPUSCULAR HEMOGLOBIN 32.3 pg (29.0-33.0); MEAN CORPUSCULAR VOLUME 92.4 fl (82.0-101.0); MEAN PLATELET VOLUME 9.7 fl (7.4-10.4); MONOCYTE # 0.5 10^3/ul (0.3-0.9); MONOCYTES % 7.1 % (0.0-11.0); NEUTROPHIL # 4.9 10^3/ul (1.6-7.5); NEUTROPHILS % 70.4 % (39.0-77.0); PLATELET COUNT 236 10^3/UL (140-415); POSITIVE DIFF @See below; RED BLOOD COUNT 1.98 10^6/ul (4.70-6.10); RED CELL DISTRIBUTION WIDTH 12.1 % (11.5-14.5)
[2018-09-13 06:02] LABS: HEMOGLOBIN 6.4 g/dl (14.0-18.0)
[2018-09-13] MEDS: PANTOPRAZOLE (EC) 40 MG TAB PO (06:25)
[2018-09-13 06:38] LABS: ANION GAP 6 (5-13); BLOOD UREA NITROGEN 17 mg/dl (7-20); CALCIUM 8.2 mg/dl (8.4-10.2); CARBON DIOXIDE 23 mmol/L (21-31); CHLORIDE 111 mmol/L (97-110); CREATININE 1.32 mg/dl (0.61-1.24); Estimated GFR 57 mL/min (>60); GLUCOSE 140 mg/dl (70-220); POTASSIUM 3.9 mmol/L (3.5-5.1); SODIUM 140 mmol/L (135-144)
[2018-09-13] MEDS: INSULIN ASPART [NOVOLOG] 3 ML PEN SC ×4 (07:58→20:52)
[2018-09-13] MEDS: ENOXAPARIN 30 MG/0.3 ML SYG SC (09:00)
[2018-09-13 09:17] LABS: ANISOCYTOSIS 1+ (0-0); BAND NEUTROPHILS % (M) 1 % (0-4); EOSINOPHILS % (M) 1 % (0-7); LYMPHOCYTES #M 1.2 10^3/ul (0.8-2.9); LYMPHOCYTES % (M) 18 % (15-51); MICROCYTOSIS 1+ (0-0); MONOCYTE #M 0.1 10^3/ul (0.3-0.9); MONOCYTES % (M) 2 % (0-11); PLATELET ESTIMATE NORMAL; POIKILOCYTOSIS 1+ (0-0); POLYCHROMASIA 2+ (0-0); SEG NEUT #M 5.4 10^3/ul (1.6-7.5); SEGMENTED NEUTROPHILS (M) % 78 % (39-77); SMUDGE%M 7 % (0-0)
[2018-09-13] MEDS: PENTOXIFYLLINE (SR) 400 MG TAB PO ×3 (09:24→20:52)
[2018-09-13] MEDS: ZINC SULFATE 220 MG CAP NGT (09:24)
[2018-09-13] MEDS: LINAGLIPTIN 5 MG TABLET PO (09:25)
[2018-09-13] MEDS: AMLODIPINE 5 MG TAB PO ×2 (09:25→20:52)
[2018-09-13] MEDS: FERROUS SULFATE (EC) 325 MG TAB PO (09:25)
[2018-09-13] MEDS: CEFTRIAXONE 1 GM/50 ML (PMX) 50 ML IVPB (09:25)
[2018-09-13 11:21] LABS: IMMEDIATE SPIN CROSSMATCH 1 3
[2018-09-13] MEDS: FUROSEMIDE 20 MG INJ IV (17:33)
[2018-09-14] MEDS: PANTOPRAZOLE (EC) 40 MG TAB PO (05:00)
[2018-09-14] MEDS: FUROSEMIDE 20 MG INJ IV (05:13)
[2018-09-14 06:34] LABS: ANION GAP 10 (5-13); BLOOD UREA NITROGEN 18 mg/dl (7-20); CALCIUM 8.9 mg/dl (8.4-10.2); CARBON DIOXIDE 26 mmol/L (21-31); CHLORIDE 106 mmol/L (97-110); CREATININE 1.51 mg/dl (0.61-1.24); Estimated GFR 49 mL/min (>60); GLUCOSE 128 mg/dl (70-220); POTASSIUM 3.8 mmol/L (3.5-5.1); SODIUM 142 mmol/L (135-144)
[2018-09-14] MEDS: LINAGLIPTIN 5 MG TABLET PO (08:12)
[2018-09-14] MEDS: AMLODIPINE 5 MG TAB PO ×2 (08:12→21:38)
[2018-09-14] MEDS: ZINC SULFATE 220 MG CAP NGT (08:12)
[2018-09-14] MEDS: FERROUS SULFATE (EC) 325 MG TAB PO (08:12)
[2018-09-14] MEDS: PENTOXIFYLLINE (SR) 400 MG TAB PO ×3 (08:12→22:37)
[2018-09-14] MEDS: ENOXAPARIN 30 MG/0.3 ML SYG SC (08:13)
[2018-09-14] MEDS: CEFTRIAXONE 1 GM/50 ML (PMX) 50 ML IVPB (08:42)
[2018-09-14] MEDS: INSULIN ASPART [NOVOLOG] 3 ML PEN SC ×4 (08:44→21:00)
[2018-09-14 14:06] LABS: ADD MAN DIFF? NO
[2018-09-14 14:09] LABS: WHITE BLOOD COUNT 8.7 10^3/ul (4.8-10.8)
[2018-09-14 14:09] LABS: BASOPHILS % 0.3 % (0.0-2.0); EOSINOPHILS # 0.2 10^3/ul (0.0-0.5); EOSINOPHILS % 2.1 % (0.0-7.0); HEMATOCRIT 30.9 % (42.0-52.0); HEMOGLOBIN 10.9 g/dl (14.0-18.0); LYMPHOCYTES # 1.3 10^3/ul (0.8-2.9); LYMPHOCYTES % 15.2 % (15.0-51.0); MEAN CORPUSCULAR HEMOGLOBIN 31.2 pg (29.0-33.0); MEAN CORPUSCULAR HGB CONC 35.3 g/dl (32.0-37.0); MEAN CORPUSCULAR VOLUME 88.5 fl (82.0-101.0); MEAN PLATELET VOLUME 9.3 fl (7.4-10.4); MONOCYTE # 0.5 10^3/ul (0.3-0.9); MONOCYTES % 5.9 % (0.0-11.0); NEUTROPHIL # 6.6 10^3/ul (1.6-7.5); NEUTROPHILS % 75.2 % (39.0-77.0); PLATELET COUNT 333 10^3/UL (140-415); RED BLOOD COUNT 3.49 10^6/ul (4.70-6.10)
[2018-09-14] MEDS ORDERED: IODIXANOL LOCM 100 ML BTL ×2 (15:07)
[2018-09-14] MEDS ORDERED: LIDOCAINE 1% (MDV) 20 ML INJ (15:07)
[2018-09-14] MEDS ORDERED: hydrALAzine 20 MG INJ ×2 (15:08→16:55)
[2018-09-14] MEDS: hydrALAzine 20 MG INJ IV (17:07)
[2018-09-14] MEDS: ACETYLCYSTEINE 600 MG CAP PO (21:38)
[2018-09-15] MEDS: INSULIN ASPART [NOVOLOG] 3 ML PEN SC ×6 (00:23→20:13)
[2018-09-15] MEDS: ACETAMINOPHEN 325 MG TAB PO (03:51)
[2018-09-15] MEDS: PANTOPRAZOLE (EC) 40 MG TAB PO (06:19)
[2018-09-15 07:51] LABS: ADD MAN DIFF? NO
[2018-09-15 07:56] LABS: WHITE BLOOD COUNT 8.6 10^3/ul (4.8-10.8)
[2018-09-15 07:56] LABS: BASOPHILS % 0.4 % (0.0-2.0); EOSINOPHILS # 0.1 10^3/ul (0.0-0.5); EOSINOPHILS % 1.4 % (0.0-7.0); HEMATOCRIT 26.7 % (42.0-52.0); HEMOGLOBIN 9.3 g/dl (14.0-18.0); LYMPHOCYTES # 1.4 10^3/ul (0.8-2.9); MEAN CORPUSCULAR HEMOGLOBIN 31.3 pg (29.0-33.0); MEAN CORPUSCULAR HGB CONC 34.8 g/dl (32.0-37.0); MEAN CORPUSCULAR VOLUME 89.9 fl (82.0-101.0); MEAN PLATELET VOLUME 9.1 fl (7.4-10.4); MONOCYTE # 0.6 10^3/ul (0.3-0.9); NEUTROPHIL # 6.4 10^3/ul (1.6-7.5); NEUTROPHILS % 74.3 % (39.0-77.0); PLATELET COUNT 291 10^3/UL (140-415); RED BLOOD COUNT 2.97 10^6/ul (4.70-6.10)
[2018-09-15 08:09] LABS: MAGNESIUM 1.7 mg/dl (1.7-2.5)
[2018-09-15 08:09] LABS: PHOSPHORUS 4.2 mg/dl (2.5-4.9)
[2018-09-15 08:19] LABS: ANION GAP 7 (5-13); BLOOD UREA NITROGEN 23 mg/dl (7-20); CALCIUM 8.3 mg/dl (8.4-10.2); CARBON DIOXIDE 26 mmol/L (21-31); CHLORIDE 107 mmol/L (97-110); CREATININE 1.51 mg/dl (0.61-1.24); Estimated GFR 49 mL/min (>60); GLUCOSE 143 mg/dl (70-220); POTASSIUM 3.5 mmol/L (3.5-5.1); SODIUM 140 mmol/L (135-144)
[2018-09-15] MEDS: PENTOXIFYLLINE (SR) 400 MG TAB PO ×3 (08:54→20:07)
[2018-09-15] MEDS: LINAGLIPTIN 5 MG TABLET PO (08:54)
[2018-09-15] MEDS: FERROUS SULFATE (EC) 325 MG TAB PO (08:54)
[2018-09-15] MEDS: ACETYLCYSTEINE 600 MG CAP PO ×2 (08:54→20:07)
[2018-09-15] MEDS: ZINC SULFATE 220 MG CAP NGT (08:54)
[2018-09-15] MEDS: CEFTRIAXONE 1 GM/50 ML (PMX) 50 ML IVPB (08:54)
[2018-09-15] MEDS: AMLODIPINE 5 MG TAB PO ×2 (08:57→20:07)
[2018-09-15] MEDS: ENOXAPARIN 30 MG/0.3 ML SYG SC (09:01)
[2018-09-16] MEDS: INSULIN ASPART [NOVOLOG] 3 ML PEN SC ×6 (00:49→20:37)
[2018-09-16] MEDS: PANTOPRAZOLE (EC) 40 MG TAB PO (05:30)
[2018-09-16 06:40] LABS: ADD MAN DIFF? NO
[2018-09-16 07:04] LABS: BASOPHILS % 0.1 % (0.0-2.0); EOSINOPHILS # 0.1 10^3/ul (0.0-0.5); EOSINOPHILS % 1.4 % (0.0-7.0); HEMATOCRIT 26.1 % (42.0-52.0); HEMOGLOBIN 9.2 g/dl (14.0-18.0); LYMPHOCYTES # 1.4 10^3/ul (0.8-2.9); LYMPHOCYTES % 15.1 % (15.0-51.0); MEAN CORPUSCULAR HEMOGLOBIN 31.7 pg (29.0-33.0); MEAN CORPUSCULAR HGB CONC 35.2 g/dl (32.0-37.0); MEAN PLATELET VOLUME 9.4 fl (7.4-10.4); MONOCYTE # 0.6 10^3/ul (0.3-0.9); MONOCYTES % 6.7 % (0.0-11.0); NEUTROPHIL # 6.9 10^3/ul (1.6-7.5); NEUTROPHILS % 76.2 % (39.0-77.0); PLATELET COUNT 278 10^3/UL (140-415); RED CELL DISTRIBUTION WIDTH 12.7 % (11.5-14.5)
[2018-09-16 07:04] LABS: WHITE BLOOD COUNT 9.1 10^3/ul (4.8-10.8)
[2018-09-16 07:20] LABS: PHOSPHORUS 3.4 mg/dl (2.5-4.9)
[2018-09-16 07:20] LABS: MAGNESIUM 1.9 mg/dl (1.7-2.5)
[2018-09-16 07:33] LABS: ANION GAP 9 (5-13); BLOOD UREA NITROGEN 21 mg/dl (7-20); CALCIUM 8.5 mg/dl (8.4-10.2); CARBON DIOXIDE 25 mmol/L (21-31); CHLORIDE 106 mmol/L (97-110); CREATININE 1.51 mg/dl (0.61-1.24); Estimated GFR 49 mL/min (>60); GLUCOSE 138 mg/dl (70-220); POTASSIUM 3.7 mmol/L (3.5-5.1); SODIUM 140 mmol/L (135-144)
[2018-09-16] MEDS: CEFTRIAXONE 1 GM/50 ML (PMX) 50 ML IVPB (08:37)
[2018-09-16] MEDS: FERROUS SULFATE (EC) 325 MG TAB PO (08:38)
[2018-09-16] MEDS: ACETYLCYSTEINE 600 MG CAP PO (08:38)
[2018-09-16] MEDS: ZINC SULFATE 220 MG CAP NGT (08:38)
[2018-09-16] MEDS: AMLODIPINE 5 MG TAB PO ×2 (08:39→20:32)
[2018-09-16] MEDS: LINAGLIPTIN 5 MG TABLET PO (08:39)
[2018-09-16] MEDS: PENTOXIFYLLINE (SR) 400 MG TAB PO ×3 (08:39→20:33)
[2018-09-16] MEDS: ENOXAPARIN 30 MG/0.3 ML SYG SC (08:45)
[2018-09-17] MEDS: PANTOPRAZOLE (EC) 40 MG TAB PO (06:33)
[2018-09-17] MEDS ORDERED: CEFAZOLIN 1 GM INJ (07:00)
[2018-09-17 08:02] LABS: ANION GAP 5 (5-13); BLOOD UREA NITROGEN 20 mg/dl (7-20); CALCIUM 8.7 mg/dl (8.4-10.2); CARBON DIOXIDE 28 mmol/L (21-31); CHLORIDE 107 mmol/L (97-110); Estimated GFR 49 mL/min (>60); GLUCOSE 161 mg/dl (70-220); POTASSIUM 3.8 mmol/L (3.5-5.1); SODIUM 140 mmol/L (135-144)
[2018-09-17] MEDS: INSULIN ASPART [NOVOLOG] 3 ML PEN SC ×4 (08:30→22:30)
[2018-09-17] MEDS: FERROUS SULFATE (EC) 325 MG TAB PO (08:30)
[2018-09-17] MEDS: LINAGLIPTIN 5 MG TABLET PO (08:30)
[2018-09-17] MEDS: AMLODIPINE 5 MG TAB PO ×2 (08:31→21:00)
[2018-09-17] MEDS: PENTOXIFYLLINE (SR) 400 MG TAB PO ×3 (08:31→21:00)
[2018-09-17] MEDS: ZINC SULFATE 220 MG CAP NGT (08:32)
[2018-09-17] MEDS: ENOXAPARIN 30 MG/0.3 ML SYG SC (09:00)
[2018-09-17] MEDS: CEFTRIAXONE 1 GM/50 ML (PMX) 50 ML IVPB (09:42)
[2018-09-17] MEDS: DEXTROSE 5%-0.45% NACL 1,000 ML IV (11:23)
[2018-09-17] MEDS ORDERED: OXYCODONE/ACETAMINOPHEN (5/325) TAB PO ×2 (20:30)
[2018-09-17] MEDS ORDERED: IPRATROPIUM (NEB) 0.5 MG/2.5 ML AMP HHN (20:30)
[2018-09-17] MEDS ORDERED: ALBUTEROL 0.083% (NEB) 2.5 MG/3 ML AMP HHN (20:30)
[2018-09-17] MEDS ORDERED: MEPERIDINE 25 MG INJ IV (20:30)
[2018-09-17] MEDS ORDERED: MIDAZOLAM 1 MG/ML 2 ML INJ IV (20:30)
[2018-09-17] MEDS ORDERED: FENTAnyl 50 MCG/ML VIAL IV ×3 (20:30)
[2018-09-17] MEDS ORDERED: DIPHENHYDRAMINE 50 MG INJ IV (20:30)
[2018-09-17] MEDS ORDERED: TRIMETHOBENZAMIDE 100 MG/ML VIAL IM (20:30)
[2018-09-17] MEDS ORDERED: hydrALAzine 20 MG INJ IV (20:30)
[2018-09-17] MEDS ORDERED: ONDANSETRON 4 MG INJ IV (20:30)
[2018-09-17] MEDS ORDERED: EPHEDrine SULFATE 50 MG/5 ML SYG IV (20:30)
[2018-09-17] MEDS ORDERED: HYDROmorphONE 1 MG/5 ML IV SYRINGE IV ×3 (20:30)
[2018-09-17] MEDS ORDERED: POLYMYXIN B 500000 UNIT INJ (20:41)
[2018-09-17] MEDS: LIDOCAINE 2% (MDV) 20 ML INJ (20:54)
[2018-09-17] MEDS: BUPIVACAINE 0.5% (SDV) 30 ML INJ (20:54)
[2018-09-17] MEDS ORDERED: hydrALAzine 20 MG INJ (21:02)
[2018-09-17] MEDS: LABETALOL HCL 20MG INJ IV (22:09)
[2018-09-18] MEDS: PANTOPRAZOLE (EC) 40 MG TAB PO (07:22)
[2018-09-18] MEDS: DEXTROSE 5%-0.45% NACL 1,000 ML IV (07:30)
[2018-09-18] MEDS: ACETAMINOPHEN 325 MG TAB PO (08:46)
[2018-09-18] MEDS: AMLODIPINE 5 MG TAB PO ×2 (08:48→20:16)
[2018-09-18] MEDS: LINAGLIPTIN 5 MG TABLET PO (08:48)
[2018-09-18] MEDS: FERROUS SULFATE (EC) 325 MG TAB PO (08:48)
[2018-09-18] MEDS: PENTOXIFYLLINE (SR) 400 MG TAB PO ×3 (08:48→20:16)
[2018-09-18 08:50] LABS: ADD MAN DIFF? NO
[2018-09-18] MEDS: INSULIN ASPART [NOVOLOG] 3 ML PEN SC ×5 (08:51→20:17)
[2018-09-18] MEDS: ENOXAPARIN 30 MG/0.3 ML SYG SC (08:53)
[2018-09-18] MEDS: ZINC SULFATE 220 MG CAP NGT (08:55)
[2018-09-18 08:57] LABS: WHITE BLOOD COUNT 6.8 10^3/ul (4.8-10.8)
[2018-09-18 08:57] LABS: BASOPHILS % 0.4 % (0.0-2.0); EOSINOPHILS # 0.1 10^3/ul (0.0-0.5); EOSINOPHILS % 1.2 % (0.0-7.0); HEMATOCRIT 25.9 % (42.0-52.0); LYMPHOCYTES # 1.3 10^3/ul (0.8-2.9); MEAN CORPUSCULAR HGB CONC 34.7 g/dl (32.0-37.0); MEAN CORPUSCULAR VOLUME 89.3 fl (82.0-101.0); MEAN PLATELET VOLUME 9.5 fl (7.4-10.4); MONOCYTE # 0.5 10^3/ul (0.3-0.9); MONOCYTES % 6.7 % (0.0-11.0); NEUTROPHIL # 4.9 10^3/ul (1.6-7.5); NEUTROPHILS % 72.3 % (39.0-77.0); PLATELET COUNT 251 10^3/UL (140-415); RED CELL DISTRIBUTION WIDTH 12.1 % (11.5-14.5)
[2018-09-18 09:15] LABS: MAGNESIUM 1.9 mg/dl (1.7-2.5)
[2018-09-18 09:15] LABS: PHOSPHORUS 4.2 mg/dl (2.5-4.9)
[2018-09-18 09:19] LABS: ANION GAP 8 (5-13); BLOOD UREA NITROGEN 17 mg/dl (7-20); CALCIUM 8.6 mg/dl (8.4-10.2); CARBON DIOXIDE 29 mmol/L (21-31); CHLORIDE 104 mmol/L (97-110); CREATININE 1.42 mg/dl (0.61-1.24); Estimated GFR 52 mL/min (>60); GLUCOSE 162 mg/dl (70-220); POTASSIUM 3.9 mmol/L (3.5-5.1); SODIUM 141 mmol/L (135-144)
[2018-09-18] MEDS: CEFTRIAXONE 1 GM/50 ML (PMX) 50 ML IVPB (10:44)
[2018-09-18] MEDS: COLLAGENASE 5 GM (UD JAR) TOP (18:12)
[2018-09-19] MEDS: PANTOPRAZOLE (EC) 40 MG TAB PO (05:29)
[2018-09-19 08:27] LABS: ADD MAN DIFF? NO
[2018-09-19 08:29] LABS: WHITE BLOOD COUNT 8.2 10^3/ul (4.8-10.8)
[2018-09-19 08:29] LABS: BASOPHILS % 0.4 % (0.0-2.0); EOSINOPHILS # 0.1 10^3/ul (0.0-0.5); EOSINOPHILS % 1.5 % (0.0-7.0); HEMATOCRIT 26.2 % (42.0-52.0); LYMPHOCYTES # 1.1 10^3/ul (0.8-2.9); LYMPHOCYTES % 13.6 % (15.0-51.0); MEAN CORPUSCULAR HEMOGLOBIN 30.8 pg (29.0-33.0); MEAN CORPUSCULAR HGB CONC 34.4 g/dl (32.0-37.0); MEAN CORPUSCULAR VOLUME 89.7 fl (82.0-101.0); MEAN PLATELET VOLUME 9.4 fl (7.4-10.4); MONOCYTE # 0.5 10^3/ul (0.3-0.9); MONOCYTES % 5.9 % (0.0-11.0); NEUTROPHIL # 6.4 10^3/ul (1.6-7.5); NEUTROPHILS % 78.2 % (39.0-77.0); PLATELET COUNT 250 10^3/UL (140-415); RED BLOOD COUNT 2.92 10^6/ul (4.70-6.10); RED CELL DISTRIBUTION WIDTH 12.2 % (11.5-14.5)
[2018-09-19 09:02] LABS: ANION GAP 9 (5-13); BLOOD UREA NITROGEN 19 mg/dl (7-20); CALCIUM 8.7 mg/dl (8.4-10.2); CARBON DIOXIDE 26 mmol/L (21-31); CHLORIDE 105 mmol/L (97-110); CREATININE 1.53 mg/dl (0.61-1.24); Estimated GFR 48 mL/min (>60); GLUCOSE 162 mg/dl (70-220); POTASSIUM 4.2 mmol/L (3.5-5.1); SODIUM 140 mmol/L (135-144)
[2018-09-19] MEDS: ENOXAPARIN 30 MG/0.3 ML SYG SC (09:05)
[2018-09-19] MEDS: INSULIN ASPART [NOVOLOG] 3 ML PEN SC ×4 (09:05→20:12)
[2018-09-19] MEDS: CEFTRIAXONE 1 GM/50 ML (PMX) 50 ML IVPB (09:09)
[2018-09-19] MEDS: AMLODIPINE 5 MG TAB PO ×2 (09:09→20:13)
[2018-09-19] MEDS: FERROUS SULFATE (EC) 325 MG TAB PO (09:09)
[2018-09-19] MEDS: COLLAGENASE 5 GM (UD JAR) TOP (09:09)
[2018-09-19] MEDS: ZINC SULFATE 220 MG CAP PO (09:10)
[2018-09-19] MEDS: LINAGLIPTIN 5 MG TABLET PO (09:10)
[2018-09-19] MEDS: PENTOXIFYLLINE (SR) 400 MG TAB PO ×3 (09:15→20:13)
[2018-09-19] MEDS: CIPROFLOXACIN 500 MG TAB PO (17:05)
[2018-09-19] MEDS: MINERAL OIL 30ML CUP PO (17:06)
[2018-09-20] MEDS: CIPROFLOXACIN 500 MG TAB PO ×2 (05:57→17:04)
[2018-09-20] MEDS: PANTOPRAZOLE (EC) 40 MG TAB PO (05:57)
[2018-09-20] MEDS: MINERAL OIL 30ML CUP PO (08:17)
[2018-09-20] MEDS: ZINC SULFATE 220 MG CAP PO (08:18)
[2018-09-20] MEDS: FERROUS SULFATE (EC) 325 MG TAB PO (08:18)
[2018-09-20] MEDS: PENTOXIFYLLINE (SR) 400 MG TAB PO ×3 (08:18→21:02)
[2018-09-20] MEDS: AMLODIPINE 5 MG TAB PO ×2 (08:18→21:01)
[2018-09-20] MEDS: COLLAGENASE 5 GM (UD JAR) TOP (08:18)
[2018-09-20] MEDS: LINAGLIPTIN 5 MG TABLET PO (08:18)
[2018-09-20] MEDS: ENOXAPARIN 30 MG/0.3 ML SYG SC (08:22)
[2018-09-20] MEDS: INSULIN ASPART [NOVOLOG] 3 ML PEN SC ×4 (08:24→21:01)
[2018-09-20 08:40] LABS: ADD MAN DIFF? NO
[2018-09-20 08:41] LABS: BASOPHILS % 0.4 % (0.0-2.0); EOSINOPHILS # 0.1 10^3/ul (0.0-0.5); EOSINOPHILS % 1.7 % (0.0-7.0); HEMATOCRIT 27.2 % (42.0-52.0); HEMOGLOBIN 9.4 g/dl (14.0-18.0); LYMPHOCYTES % 13.4 % (15.0-51.0); MEAN CORPUSCULAR HEMOGLOBIN 30.9 pg (29.0-33.0); MEAN CORPUSCULAR HGB CONC 34.6 g/dl (32.0-37.0); MEAN CORPUSCULAR VOLUME 89.5 fl (82.0-101.0); MEAN PLATELET VOLUME 9.5 fl (7.4-10.4); MONOCYTE # 0.5 10^3/ul (0.3-0.9); MONOCYTES % 6.1 % (0.0-11.0); NEUTROPHIL # 5.9 10^3/ul (1.6-7.5); PLATELET COUNT 245 10^3/UL (140-415); RED BLOOD COUNT 3.04 10^6/ul (4.70-6.10)
[2018-09-20 08:41] LABS: WHITE BLOOD COUNT 7.6 10^3/ul (4.8-10.8)
[2018-09-20 09:05] LABS: ANION GAP 12 (5-13); BLOOD UREA NITROGEN 21 mg/dl (7-20); CALCIUM 8.9 mg/dl (8.4-10.2); CARBON DIOXIDE 26 mmol/L (21-31); CHLORIDE 102 mmol/L (97-110); CREATININE 1.48 mg/dl (0.61-1.24); Estimated GFR 50 mL/min (>60); GLUCOSE 160 mg/dl (70-220); POTASSIUM 4.2 mmol/L (3.5-5.1); SODIUM 140 mmol/L (135-144)
[2018-09-20] MEDS: BISACODYL 10 MG SUPP PR (09:30)
[2018-09-21] MEDS: PANTOPRAZOLE (EC) 40 MG TAB PO (06:28)
[2018-09-21] MEDS: CIPROFLOXACIN 500 MG TAB PO ×2 (06:28→17:00)
[2018-09-21] MEDS: INSULIN ASPART [NOVOLOG] 3 ML PEN SC ×4 (08:19→20:46)
[2018-09-21] MEDS: FERROUS SULFATE (EC) 325 MG TAB PO (08:20)
[2018-09-21] MEDS: AMLODIPINE 5 MG TAB PO ×2 (08:21→20:43)
[2018-09-21] MEDS: COLLAGENASE 5 GM (UD JAR) TOP (08:21)
[2018-09-21] MEDS: LINAGLIPTIN 5 MG TABLET PO (08:21)
[2018-09-21] MEDS: ZINC SULFATE 220 MG CAP PO (08:21)
[2018-09-21] MEDS: ENOXAPARIN 30 MG/0.3 ML SYG SC (08:23)
[2018-09-21] MEDS: PENTOXIFYLLINE (SR) 400 MG TAB PO ×3 (08:23→20:43)
[2018-09-21] MEDS: MINERAL OIL 30ML CUP PO (08:24)
[2018-09-22] MEDS: PANTOPRAZOLE (EC) 40 MG TAB PO (06:16)
[2018-09-22] MEDS: CIPROFLOXACIN 500 MG TAB PO ×2 (06:16→17:49)
[2018-09-22 07:11] LABS: ANION GAP 10 (5-13); BLOOD UREA NITROGEN 25 mg/dl (7-20); CALCIUM 8.8 mg/dl (8.4-10.2); CARBON DIOXIDE 27 mmol/L (21-31); CHLORIDE 101 mmol/L (97-110); CREATININE 1.55 mg/dl (0.61-1.24); Estimated GFR 47 mL/min (>60); GLUCOSE 203 mg/dl (70-220); SODIUM 138 mmol/L (135-144)
[2018-09-22] MEDS: PENTOXIFYLLINE (SR) 400 MG TAB PO ×3 (08:18→20:50)
[2018-09-22] MEDS: ZINC SULFATE 220 MG CAP PO (08:19)
[2018-09-22] MEDS: FERROUS SULFATE (EC) 325 MG TAB PO (08:19)
[2018-09-22] MEDS: AMLODIPINE 5 MG TAB PO ×2 (08:19→20:51)
[2018-09-22] MEDS: ENOXAPARIN 30 MG/0.3 ML SYG SC (08:24)
[2018-09-22] MEDS: INSULIN ASPART [NOVOLOG] 3 ML PEN SC ×5 (08:25→20:47)
[2018-09-22] MEDS: COLLAGENASE 5 GM (UD JAR) TOP (08:25)
[2018-09-22] MEDS: LINAGLIPTIN 5 MG TABLET PO (08:25)
[2018-09-22] MEDS: MINERAL OIL 30ML CUP PO (09:36)
[2018-09-22] MEDS: SOD CHLORIDE 0.9% 1,000 ML IV (16:42)
[2018-09-22] MEDS: INSULIN GLARGINE [LANTus] (100 UNITS/ML) SYG SC (20:49)
[2018-09-23] MEDS: ACCU-CHEK XX (02:00)
[2018-09-23] MEDS: CIPROFLOXACIN 500 MG TAB PO (06:34)
[2018-09-23] MEDS: PANTOPRAZOLE (EC) 40 MG TAB PO (06:34)
[2018-09-23 08:36] LABS: ADD MAN DIFF? NO
[2018-09-23] MEDS: FERROUS SULFATE (EC) 325 MG TAB PO (08:42)
[2018-09-23] MEDS: LINAGLIPTIN 5 MG TABLET PO (08:43)
[2018-09-23] MEDS: ZINC SULFATE 220 MG CAP PO (08:43)
[2018-09-23] MEDS: PENTOXIFYLLINE (SR) 400 MG TAB PO ×3 (08:43→21:33)
[2018-09-23] MEDS: AMLODIPINE 5 MG TAB PO ×2 (08:44→21:33)
[2018-09-23] MEDS: COLLAGENASE 5 GM (UD JAR) TOP (08:44)
[2018-09-23] MEDS: MINERAL OIL 30ML CUP PO (08:44)
[2018-09-23] MEDS: ENOXAPARIN 30 MG/0.3 ML SYG SC (08:45)
[2018-09-23] MEDS: INSULIN ASPART [NOVOLOG] 3 ML PEN SC ×7 (08:46→21:39)
[2018-09-23 08:49] LABS: BASOPHILS % 0.4 % (0.0-2.0); EOSINOPHILS # 0.1 10^3/ul (0.0-0.5); EOSINOPHILS % 1.4 % (0.0-7.0); HEMATOCRIT 27.2 % (42.0-52.0); HEMOGLOBIN 9.5 g/dl (14.0-18.0); LYMPHOCYTES # 1.2 10^3/ul (0.8-2.9); LYMPHOCYTES % 14.5 % (15.0-51.0); MEAN CORPUSCULAR HEMOGLOBIN 30.8 pg (29.0-33.0); MEAN CORPUSCULAR HGB CONC 34.9 g/dl (32.0-37.0); MEAN CORPUSCULAR VOLUME 88.3 fl (82.0-101.0); MEAN PLATELET VOLUME 9.9 fl (7.4-10.4); MONOCYTE # 0.6 10^3/ul (0.3-0.9); MONOCYTES % 7.5 % (0.0-11.0); NEUTROPHIL # 6.4 10^3/ul (1.6-7.5); NEUTROPHILS % 75.8 % (39.0-77.0); PLATELET COUNT 263 10^3/UL (140-415); RED BLOOD COUNT 3.08 10^6/ul (4.70-6.10); RED CELL DISTRIBUTION WIDTH 11.9 % (11.5-14.5)
[2018-09-23 08:49] LABS: WHITE BLOOD COUNT 8.4 10^3/ul (4.8-10.8)
[2018-09-23 09:24] LABS: ANION GAP 8 (5-13); BLOOD UREA NITROGEN 22 mg/dl (7-20); CALCIUM 8.9 mg/dl (8.4-10.2); CARBON DIOXIDE 26 mmol/L (21-31); CHLORIDE 105 mmol/L (97-110); CREATININE 1.59 mg/dl (0.61-1.24); Estimated GFR 46 mL/min (>60); GLUCOSE 149 mg/dl (70-220); POTASSIUM 4.2 mmol/L (3.5-5.1); SODIUM 139 mmol/L (135-144)
[2018-09-23 09:26] LABS: MAGNESIUM 1.9 mg/dl (1.7-2.5)
[2018-09-23 09:26] LABS: PHOSPHORUS 3.8 mg/dl (2.5-4.9)
[2018-09-23] MEDS: SOD CHLORIDE 0.9% 1,000 ML IV (11:36)
[2018-09-23] MEDS: CEFTRIAXONE 1 GM/50 ML (PMX) 50 ML IVPB (11:36)
[2018-09-23] MEDS: ACETYLCYSTEINE 600 MG CAP PO ×2 (12:40→21:40)
[2018-09-23] MEDS ORDERED: VANCOMYCIN IV PER PHARMACY XX (16:00)
[2018-09-23] MEDS: PIPER-TAZO 3.375 GM IV (PMX) 100 ML IVPB ×2 (16:15→21:28)
[2018-09-23] MEDS: VANCOMYCIN HCL 1.5 GM in SOD CHLORIDE 0.9% 250 ML IVPB (17:55)
[2018-09-23] MEDS: INSULIN GLARGINE [LANTus] (100 UNITS/ML) SYG SC (21:40)
[2018-09-24] MEDS: DEXTROSE 5% 1,000 ML IV (00:50)
[2018-09-24] MEDS: INSULIN ASPART [NOVOLOG] 3 ML PEN SC ×9 (01:20→20:42)
[2018-09-24] MEDS ORDERED: ACCU-CHEK XX (02:00)
[2018-09-24] MEDS: PANTOPRAZOLE (EC) 40 MG TAB PO (05:10)
[2018-09-24] MEDS: PIPER-TAZO 3.375 GM IV (PMX) 100 ML IVPB ×2 (05:13→14:41)
[2018-09-24] MEDS: VANCOMYCIN 750 MG (PMX) 250 ML IVPB ×2 (06:07→17:55)
[2018-09-24] MEDS: ZINC SULFATE 220 MG CAP PO (08:33)
[2018-09-24] MEDS: LINAGLIPTIN 5 MG TABLET PO (08:33)
[2018-09-24] MEDS: ACETYLCYSTEINE 600 MG CAP PO ×2 (08:33→20:27)
[2018-09-24] MEDS: FERROUS SULFATE (EC) 325 MG TAB PO (08:33)
[2018-09-24] MEDS: PENTOXIFYLLINE (SR) 400 MG TAB PO ×3 (08:33→20:27)
[2018-09-24] MEDS: MINERAL OIL 30ML CUP PO (08:33)
[2018-09-24] MEDS: COLLAGENASE 5 GM (UD JAR) TOP (08:34)
[2018-09-24] MEDS: AMLODIPINE 5 MG TAB PO ×2 (08:34→20:27)
[2018-09-24] MEDS: ENOXAPARIN 30 MG/0.3 ML SYG SC (08:39)
[2018-09-24] MEDS ORDERED: FENTAnyl 50 MCG/ML VIAL (09:46)
[2018-09-24] MEDS ORDERED: MIDAZOLAM 1 MG/ML 2 ML INJ (09:46)
[2018-09-24] MEDS ORDERED: PROPOFOL 20 ML (09:46)
[2018-09-24] MEDS ORDERED: METOCLOPRAMIDE 10 MG INJ (09:47)
[2018-09-24] MEDS ORDERED: IPRATROPIUM (NEB) 0.5 MG/2.5 ML AMP HHN (10:30)
[2018-09-24] MEDS ORDERED: DIPHENHYDRAMINE 50 MG INJ IV (10:30)
[2018-09-24] MEDS ORDERED: hydrALAzine 20 MG INJ IV (10:30)
[2018-09-24] MEDS ORDERED: LORAZEPAM 2 MG INJ IV (10:30)
[2018-09-24] MEDS ORDERED: LABETALOL HCL 20MG INJ IV (10:30)
[2018-09-24] MEDS ORDERED: FENTAnyl 50 MCG/ML VIAL IV (10:30)
[2018-09-24] MEDS ORDERED: HYDROmorphONE 1 MG/5 ML IV SYRINGE IV ×2 (10:30)
[2018-09-24] MEDS ORDERED: MIDAZOLAM 1 MG/ML 2 ML INJ IV (10:30)
[2018-09-24] MEDS ORDERED: ONDANSETRON 4 MG INJ IV (10:30)
[2018-09-24] MEDS ORDERED: LEVALBUTEROL (NEB) 1.25 MG/0.5 ML AMP HHN (10:30)
[2018-09-24] MEDS ORDERED: IOHEXOL 300MG/ML 30 ML BTL (10:31)
[2018-09-24] MEDS: HEPARIN 1000 UNITS/ML 10 ML INJ (11:09)
[2018-09-24] MEDS: LIDOCAINE 1% (MPF) 30 ML INJ (11:15)
[2018-09-24] MEDS: SOD CHLORIDE 0.9% 1,000 ML IV (16:26)
[2018-09-24] MEDS: INSULIN GLARGINE [LANTus] (100 UNITS/ML) SYG SC (20:43)
[2018-09-24] MEDS: CEFEPIME 1GM/50 ML (PMX) 50 ML IVPB (20:44)
[2018-09-25] MEDS: ACCU-CHEK XX (02:00)
[2018-09-25] MEDS: SOD CHLORIDE 0.9% 1,000 ML IV ×2 (03:13→17:31)
[2018-09-25 06:39] LABS: VANCOMYCIN,TROUGH 15.8 ug/ml (10.0-20.0)
[2018-09-25 06:40] LABS: ANION GAP 9 (5-13); BLOOD UREA NITROGEN 19 mg/dl (7-20); CALCIUM 8.6 mg/dl (8.4-10.2); CARBON DIOXIDE 26 mmol/L (21-31); CHLORIDE 105 mmol/L (97-110); Estimated GFR 49 mL/min (>60); GLUCOSE 120 mg/dl (70-220); POTASSIUM 4.1 mmol/L (3.5-5.1); SODIUM 140 mmol/L (135-144)
[2018-09-25] MEDS: VANCOMYCIN 750 MG (PMX) 250 ML IVPB ×2 (06:50→18:52)
[2018-09-25] MEDS: PANTOPRAZOLE (EC) 40 MG TAB PO (06:50)
[2018-09-25] MEDS: INSULIN ASPART [NOVOLOG] 3 ML PEN SC ×7 (08:00→21:51)
[2018-09-25] MEDS: MINERAL OIL 30ML CUP PO (08:13)
[2018-09-25] MEDS: ACETYLCYSTEINE 600 MG CAP PO (08:15)
[2018-09-25] MEDS: BISACODYL (EC) 5 MG TAB PO (08:15)
[2018-09-25] MEDS: ZINC SULFATE 220 MG CAP PO (08:16)
[2018-09-25] MEDS: LINAGLIPTIN 5 MG TABLET PO (08:16)
[2018-09-25] MEDS: PENTOXIFYLLINE (SR) 400 MG TAB PO ×3 (08:16→21:51)
[2018-09-25] MEDS: FERROUS SULFATE (EC) 325 MG TAB PO (08:17)
[2018-09-25] MEDS: AMLODIPINE 5 MG TAB PO ×2 (08:20→21:52)
[2018-09-25] MEDS: CEFEPIME 1GM/50 ML (PMX) 50 ML IVPB ×2 (09:25→21:53)
[2018-09-25] MEDS: ENOXAPARIN 30 MG/0.3 ML SYG SC (09:26)
[2018-09-25] MEDS: COLLAGENASE 5 GM (UD JAR) TOP (11:14)
[2018-09-25] MEDS: LIDOCAINE 1% (MPF) 5 ML VIAL SC (14:00)
[2018-09-25] MEDS: INSULIN GLARGINE [LANTus] (100 UNITS/ML) SYG SC (21:50)
[2018-09-25] MEDS: MINERAL OIL 133 ML ENEMA PR (22:00)
[2018-09-26] MEDS: ACCU-CHEK XX (02:21)
[2018-09-26] MEDS: PANTOPRAZOLE (EC) 40 MG TAB PO (05:31)
[2018-09-26] MEDS: VANCOMYCIN 750 MG (PMX) 250 ML IVPB (05:32)
[2018-09-26] MEDS: INSULIN ASPART [NOVOLOG] 3 ML PEN SC ×6 (08:00→17:05)
[2018-09-26] MEDS: FERROUS SULFATE (EC) 325 MG TAB PO (08:20)
[2018-09-26] MEDS: LINAGLIPTIN 5 MG TABLET PO (08:21)
[2018-09-26] MEDS: ZINC SULFATE 220 MG CAP PO (08:23)
[2018-09-26] MEDS: AMLODIPINE 5 MG TAB PO (08:23)
[2018-09-26] MEDS: PENTOXIFYLLINE (SR) 400 MG TAB PO ×2 (08:23→13:34)
[2018-09-26] MEDS: ENOXAPARIN 30 MG/0.3 ML SYG SC (08:26)
[2018-09-26] MEDS: COLLAGENASE 5 GM (UD JAR) TOP (08:28)
[2018-09-26] MEDS: SODIUM HYPOCHLORITE (1/40) 1 APPLIC BTL IRR (08:28)
[2018-09-26] MEDS: MINERAL OIL 30ML CUP PO (08:32)
[2018-09-26] MEDS: CEFEPIME 1GM/50 ML (PMX) 50 ML IVPB (08:33)
[2018-09-26] MEDS: BISACODYL (EC) 5 MG TAB PO ×2 (08:56→17:18)
[2018-09-26] MEDS: SOD CHLORIDE 0.9% 1,000 ML IV (10:54)
== END 2018-09-26 18:55 | disposition home health service (06) | DRG 256 ==
LOC: 5EC 22:10 → PP2 09-09 22:06 → TEL 09-14 17:05 → 5EC 09-16 18:24 → E/R 15:40
PROC: B41DYZZ Fluoroscopy of Aorta and Bilateral Lower Extremity Arteries using Other Contrast (ICD-10-PCS; 2018-09-14 13:30)
PROC: 0Y6U0Z0 Detachment at Left 3rd Toe, Complete, Open Approach (ICD-10-PCS; principal; 2018-09-14 14:00)
PROC: 0JBQ0ZZ Excision of Right Foot Subcutaneous Tissue and Fascia, Open Approach (ICD-10-PCS; 2018-09-14 14:00)
PROC: B41FYZZ Fluoroscopy of Right Lower Extremity Arteries using Other Contrast (ICD-10-PCS; 2018-09-14 14:00)
PROC: 02H633Z Insertion of Infusion Device into Right Atrium, Percutaneous Approach (ICD-10-PCS; 2018-09-14 14:00)
DX: E11.52 Type 2 diabetes mellitus with diabetic peripheral angiopathy with gangrene (principal); L03.116 Cellulitis of left lower limb; N17.9 Acute kidney failure, unspecified; I70.92 Chronic total occlusion of artery of the extremities; M86.172 Other acute osteomyelitis, left ankle and foot; E11.40 Type 2 diabetes mellitus with diabetic neuropathy, unspecified; E11.621 Type 2 diabetes mellitus with foot ulcer; E11.22 Type 2 diabetes mellitus with diabetic chronic kidney disease; I12.9 Hypertensive chronic kidney disease with stage 1 through stage 4 chronic kidney disease, or unspecified chronic kidney disease; E66.3 Overweight; N18.9 Chronic kidney disease, unspecified; L97.529 Non-pressure chronic ulcer of other part of left foot with unspecified severity; I70.201 Unspecified atherosclerosis of native arteries of extremities, right leg; E11.69 Type 2 diabetes mellitus with other specified complication; L97.519 Non-pressure chronic ulcer of other part of right foot with unspecified severity; D63.1 Anemia in chronic kidney disease; B95.61 Methicillin susceptible Staphylococcus aureus infection as the cause of diseases classified elsewhere; Z68.28 Body mass index [BMI] 28.0-28.9, adult; Z89.422 Acquired absence of other left toe(s)
CPT/HCPCS: 36246; 36415; 36430; 36569; 71045; 73590; 73630; 73630-LT; 73718; 75630; 76937; 80048; 80053; 80202; 80307; 81001; 82140; 82962; 83036; 83540; 83690; 83735; 84100; 85025; 85610; 85730; 86140; 86850; 86900; 86901; 86920; 87040; 87070; 88305; 88311; 96374; 96375; 97162; 99285-25

== ENCOUNTER 2018-10-25 19:41 | Inpatient (IN) | payer OTHER ==
[2018-10-25 20:18] LABS: ABNORMAL IP MESSAGE 1; HEMATOCRIT 21.6 % (42.0-52.0); HEMOGLOBIN 7.3 g/dl (14.0-18.0); MEAN CORPUSCULAR HEMOGLOBIN 29.9 pg (29.0-33.0); MEAN CORPUSCULAR HGB CONC 33.8 g/dl (32.0-37.0); MEAN CORPUSCULAR VOLUME 88.5 fl (82.0-101.0); MEAN PLATELET VOLUME 9.1 fl (7.4-10.4); PLATELET COUNT 345 10^3/UL (140-415); POSITIVE DIFF @See below; RED BLOOD COUNT 2.44 10^6/ul (4.70-6.10); RED CELL DISTRIBUTION WIDTH 12.2 % (11.5-14.5)
[2018-10-25] MEDS: PIPER-TAZO 3.375 GM IV (PMX) 100 ML IVPB (20:25)
[2018-10-25] MEDS: ACETAMINOPHEN 325 MG TAB PO (20:26)
[2018-10-25 20:29] LABS: PATH REVIEW? YES
[2018-10-25 20:31] LABS: ADD MAN DIFF? YES
[2018-10-25 20:33] LABS: INR 1.22; PROTIME 15.5 Sec (11.9-14.9); PT RATIO 1.2
[2018-10-25 20:34] LABS: PARTIAL THROMBOPLASTIN TIME 39.4 Sec (23.0-35.0)
[2018-10-25 20:36] LABS: ALANINE AMINOTRANSFERASE 32 IU/L (13-69); ALBUMIN 3.1 g/dl (3.3-4.9); ALBUMIN/GLOBULIN RATIO 0.79; ALKALINE PHOSPHATASE 257 IU/L (42-121); ANION GAP 11 (5-13); ASPARTATE AMINO TRANSFERASE 59 IU/L (15-46); BILIRUBIN,INDIRECT 0.6 mg/dl (0-1.1); BILIRUBIN,TOTAL 0.6 mg/dl (0.2-1.3); BLOOD UREA NITROGEN 36 mg/dl (7-20); CALCIUM 8.5 mg/dl (8.4-10.2); CARBON DIOXIDE 24 mmol/L (21-31); CHLORIDE 97 mmol/L (97-110); CREATININE 1.92 mg/dl (0.61-1.24); Estimated GFR 37 mL/min (>60); GLUCOSE 245 mg/dl (70-220); POTASSIUM 4.5 mmol/L (3.5-5.1); SODIUM 132 mmol/L (135-144)
[2018-10-25 20:45] LABS: AMMONIA < 9 umol/l (9-30)
[2018-10-25 20:47] LABS: TROPONIN-I < 0.012 ng/ml (0.000-0.120)
[2018-10-25] MEDS: SODIUM CHLORIDE 0.9% 1L BAG IV* (20:51)
[2018-10-25] MEDS: VANCOMYCIN 1 GM (PMX) 250 ML IVPB (20:52)
[2018-10-25 21:06] LABS: BAND NEUTROPHILS #M 1.6 10^3/ul (0.0-0.6); BAND NEUTROPHILS % (M) 6 % (0-4); HYPOCHROMASIA 1+ (0-0); LYMPHOCYTES #M 0.5 10^3/ul (0.8-2.9); LYMPHOCYTES % (M) 2 % (15-51); MONOCYTE #M 0.5 10^3/ul (0.3-0.9); MONOCYTES % (M) 2 % (0-11); PLATELET ESTIMATE NORMAL; SEG NEUT #M 25.6 10^3/ul (1.6-7.5); SEGMENTED NEUTROPHILS (M) % 90 % (39-77); SMUDGE%M 1 % (0-0)
[2018-10-25] MEDS ORDERED: ACETAMINOPHEN 325 MG TAB PO (21:30)
[2018-10-25] MEDS ORDERED: ONDANSETRON 4 MG INJ IV (21:30)
[2018-10-25] MEDS: CLINDAMYCIN 900 MG/D5W (PMX) 50 ML IVPB (22:52)
[2018-10-26 01:22] LABS: LACTIC ACID 1.5 mmol/L (0.5-2.0)
[2018-10-26] MEDS ORDERED: DEXTROSE 50% 50 ML SYRINGE IV ×2 (02:30)
[2018-10-26] MEDS ORDERED: GLUCAGON 1 MG INJ IM (02:30)
[2018-10-26] MEDS ORDERED: GLUCOSE GEL 15 GRAM TUBE PO (02:30)
[2018-10-26] MEDS ORDERED: GLUCOSE GEL 15 GRAM TUBE BUCCAL (02:30)
[2018-10-26] MEDS ORDERED: VANCOMYCIN IV PER PHARMACY XX ×2 (03:00→05:00)
[2018-10-26] MEDS ORDERED: ZOSYN PER PHARMACY XX (03:00)
[2018-10-26] MEDS ORDERED: PENDING SANTYL ORDER FOR WOUND CARE XX (03:00)
[2018-10-26] MEDS: PANTOPRAZOLE (EC) 40 MG TAB PO (05:18)
[2018-10-26] MEDS: SOD CHLORIDE 0.9% 1,000 ML IV ×4 (05:19→21:33)
[2018-10-26 06:59] LABS: ADD MAN DIFF? NO
[2018-10-26 07:39] LABS: ALANINE AMINOTRANSFERASE 42 IU/L (13-69); ALBUMIN 2.5 g/dl (3.3-4.9); ALBUMIN/GLOBULIN RATIO 0.69; ALKALINE PHOSPHATASE 229 IU/L (42-121); ANION GAP 9 (5-13); ASPARTATE AMINO TRANSFERASE 50 IU/L (15-46); BILIRUBIN,INDIRECT 0.3 mg/dl (0-1.1); BILIRUBIN,TOTAL 0.3 mg/dl (0.2-1.3); BLOOD UREA NITROGEN 36 mg/dl (7-20); CALCIUM 8.1 mg/dl (8.4-10.2); CARBON DIOXIDE 22 mmol/L (21-31); CHLORIDE 103 mmol/L (97-110); CREATININE 1.84 mg/dl (0.61-1.24); Estimated GFR 39 mL/min (>60); GLUCOSE 210 mg/dl (70-220); POTASSIUM 3.9 mmol/L (3.5-5.1); SODIUM 134 mmol/L (135-144); TOTAL PROTEIN 6.1 g/dl (6.1-8.1)
[2018-10-26] MEDS: ALTEPLASE (CATHFLO) 2 MG INJ CATHETER (08:24)
[2018-10-26] MEDS: INSULIN ASPART [NOVOLOG] 3 ML PEN SC ×5 (08:25→22:14)
[2018-10-26] MEDS: LINAGLIPTIN 5 MG TABLET PO (08:26)
[2018-10-26] MEDS: AMLODIPINE 5 MG TAB PO (08:26)
[2018-10-26] MEDS: FERROUS SULFATE (EC) 325 MG TAB PO (08:26)
[2018-10-26] MEDS: COLLAGENASE 5 GM (UD JAR) TOP (08:27)
[2018-10-26] MEDS: PENTOXIFYLLINE (SR) 400 MG TAB PO ×3 (08:29→22:09)
[2018-10-26 10:09] LABS: WHITE BLOOD COUNT 25.8 10^3/ul (4.8-10.8)
[2018-10-26 10:09] LABS: ABNORMAL IP MESSAGE 1; BASOPHIL # 0.1 10^3/ul (0.0-0.1); BASOPHILS % 0.2 % (0.0-2.0); EOSINOPHILS % 0.1 % (0.0-7.0); HEMATOCRIT 18.9 % (42.0-52.0); LYMPHOCYTES # 0.7 10^3/ul (0.8-2.9); LYMPHOCYTES % 2.7 % (15.0-51.0); MEAN CORPUSCULAR HEMOGLOBIN 29.2 pg (29.0-33.0); MEAN CORPUSCULAR HGB CONC 32.8 g/dl (32.0-37.0); MEAN CORPUSCULAR VOLUME 89.2 fl (82.0-101.0); MEAN PLATELET VOLUME 9.8 fl (7.4-10.4); MONOCYTES % 3.8 % (0.0-11.0); NEUTROPHIL # 23.4 10^3/ul (1.6-7.5); NEUTROPHILS % 90.7 % (39.0-77.0); PLATELET COUNT 295 10^3/UL (140-415); POSITIVE DIFF @See below; RED BLOOD COUNT 2.12 10^6/ul (4.70-6.10); RED CELL DISTRIBUTION WIDTH 12.5 % (11.5-14.5)
[2018-10-26 10:15] LABS: HEMOGLOBIN 6.2 g/dl (14.0-18.0); PATH REVIEW? YES
[2018-10-26] MEDS: VANCOMYCIN 1 GM 250 ML IVPB (12:12)
[2018-10-26 13:09] LABS: BAND NEUTROPHILS #M 3.8 10^3/ul (0.0-0.6); BAND NEUTROPHILS % (M) 15 % (0-4); LYMPHOCYTES % (M) 4 % (15-51); MONOCYTE #M 0.5 10^3/ul (0.3-0.9); MONOCYTES % (M) 2 % (0-11); PLATELET ESTIMATE NORMAL; POLYCHROMASIA 3+ (0-0); SEG NEUT #M 21.6 10^3/ul (1.6-7.5); SEGMENTED NEUTROPHILS (M) % 80 % (39-77); SMUDGE%M 2 % (0-0)
[2018-10-26] MEDS: ACETAMINOPHEN 325 MG TAB PO (14:48)
[2018-10-26] MEDS: ACETAMINOPHEN 1000MG/100ML IV 100 ML IVPB (16:54)
[2018-10-26] MEDS ORDERED: PIPER-TAZO 3.375 GM IV (PMX) 100 ML IVPB (17:00)
[2018-10-26] MEDS: DIPHENHYDRAMINE 50 MG INJ IV (17:30)
[2018-10-26] MEDS: SOD CHLORIDE 0.9% 500 ML IV ×3 (17:30→22:25)
[2018-10-26] MEDS ORDERED: CLINDAMYCIN 300 MG/D5W (PMX) 50 ML IVPB (18:00)
[2018-10-26] MEDS: PIPER-TAZO 3.375 GM IV (PMX) 100 ML IVPB (20:35)
[2018-10-26] MEDS ORDERED: INSULIN ASPART [NOVOLOG] 3 ML PEN SC (21:00)
[2018-10-26] MEDS ORDERED: MEROPENEM 500MG/50 ML (PMX) 50 ML IVPB (21:00)
[2018-10-26] MEDS: INSULIN GLARGINE [LANTus] (100 UNITS/ML) SYG SC (22:13)
[2018-10-26] MEDS: DAKINS 0.0125%(1/40) 473 ML SOLUTION TP (22:24)
[2018-10-26] MEDS: NORepinephrine 8MG/250 ML (PMX 250 ML IV (23:25)
[2018-10-27] MEDS: ACCU-CHEK XX (01:41)
[2018-10-27 05:14] LABS: WHITE BLOOD COUNT 28.3 10^3/ul (4.8-10.8)
[2018-10-27 05:14] LABS: ABNORMAL IP MESSAGE 1; HEMATOCRIT 19.8 % (42.0-52.0); MEAN CORPUSCULAR HEMOGLOBIN 29.6 pg (29.0-33.0); MEAN CORPUSCULAR HGB CONC 33.8 g/dl (32.0-37.0); MEAN CORPUSCULAR VOLUME 87.6 fl (82.0-101.0); MEAN PLATELET VOLUME 9.7 fl (7.4-10.4); PLATELET COUNT 281 10^3/UL (140-415); POSITIVE DIFF @See below; RED BLOOD COUNT 2.26 10^6/ul (4.70-6.10); RED CELL DISTRIBUTION WIDTH 13.1 % (11.5-14.5)
[2018-10-27] MEDS: PANTOPRAZOLE (EC) 40 MG TAB PO (05:15)
[2018-10-27] MEDS: PIPER-TAZO 3.375 GM IV (PMX) 100 ML IVPB ×3 (05:16→20:18)
[2018-10-27] MEDS: SOD CHLORIDE 0.9% 1,000 ML IV ×3 (05:18→20:17)
[2018-10-27 05:19] LABS: HEMOGLOBIN 6.7 g/dl (14.0-18.0)
[2018-10-27 05:20] LABS: ADD MAN DIFF? YES
[2018-10-27 05:33] LABS: PHOSPHORUS 3.3 mg/dl (2.5-4.9)
[2018-10-27 05:33] LABS: MAGNESIUM 1.9 mg/dl (1.7-2.5)
[2018-10-27 05:50] LABS: ANION GAP 7 (5-13); BLOOD UREA NITROGEN 37 mg/dl (7-20); CALCIUM 7.6 mg/dl (8.4-10.2); CARBON DIOXIDE 19 mmol/L (21-31); CHLORIDE 109 mmol/L (97-110); CREATININE 1.99 mg/dl (0.61-1.24); Estimated GFR 35 mL/min (>60); GLUCOSE 174 mg/dl (70-220); SODIUM 135 mmol/L (135-144)
[2018-10-27] MEDS ORDERED: CIPROFLOXACIN 500 MG TAB PO (06:00)
[2018-10-27 06:17] LABS: POTASSIUM 3.8 mmol/L (3.5-5.1)
[2018-10-27] MEDS: LINAGLIPTIN 5 MG TABLET PO (08:04)
[2018-10-27] MEDS: FERROUS SULFATE (EC) 325 MG TAB PO (08:04)
[2018-10-27] MEDS: PENTOXIFYLLINE (SR) 400 MG TAB PO ×3 (08:04→20:12)
[2018-10-27] MEDS: DAKINS 0.0125%(1/40) 473 ML SOLUTION TP ×2 (08:05→20:16)
[2018-10-27] MEDS: INSULIN ASPART [NOVOLOG] 3 ML PEN SC ×6 (08:07→20:11)
[2018-10-27] MEDS: COLLAGENASE 5 GM (UD JAR) TOP (08:11)
[2018-10-27 08:44] LABS: IMMEDIATE SPIN CROSSMATCH 1 3
[2018-10-27] MEDS: ONDANSETRON 4 MG INJ IV (09:10)
[2018-10-27 09:13] LABS: BAND NEUTROPHILS #M 1.6 10^3/ul (0.0-0.6); BAND NEUTROPHILS % (M) 6 % (0-4); BURR CELLS 1+ (0-0); LYMPHOCYTES #M 1.9 10^3/ul (0.8-2.9); LYMPHOCYTES % (M) 7 % (15-51); MONOCYTE #M 0.2 10^3/ul (0.3-0.9); MONOCYTES % (M) 1 % (0-11); PLATELET ESTIMATE NORMAL; POIKILOCYTOSIS 1+ (0-0); POLYCHROMASIA 1+ (0-0); SEG NEUT #M 24.8 10^3/ul (1.6-7.5); SEGMENTED NEUTROPHILS (M) % 86 % (39-77); SMUDGE%M 1 % (0-0); TARGET CELLS 1+ (0-0)
[2018-10-27] MEDS: VANCOMYCIN 1 GM 250 ML IVPB (12:10)
[2018-10-27] MEDS: INSULIN GLARGINE [LANTus] (100 UNITS/ML) SYG SC (20:14)
[2018-10-28] MEDS: ACCU-CHEK XX ×2 (02:00)
[2018-10-28 05:30] LABS: ABNORMAL IP MESSAGE 1; HEMATOCRIT 29.5 % (42.0-52.0); MEAN CORPUSCULAR HEMOGLOBIN 29.3 pg (29.0-33.0); MEAN CORPUSCULAR HGB CONC 33.9 g/dl (32.0-37.0); MEAN CORPUSCULAR VOLUME 86.5 fl (82.0-101.0); PLATELET COUNT 339 10^3/UL (140-415); POSITIVE DIFF @See below; RED BLOOD COUNT 3.41 10^6/ul (4.70-6.10)
[2018-10-28 05:30] LABS: WHITE BLOOD COUNT 33.7 10^3/ul (4.8-10.8)
[2018-10-28] MEDS: PIPER-TAZO 3.375 GM IV (PMX) 100 ML IVPB ×3 (05:35→21:06)
[2018-10-28] MEDS: PANTOPRAZOLE (EC) 40 MG TAB PO (05:36)
[2018-10-28 05:50] LABS: ADD MAN DIFF? YES
[2018-10-28 05:56] LABS: PHOSPHORUS 3.4 mg/dl (2.5-4.9)
[2018-10-28 06:03] LABS: ANION GAP 11 (5-13); BLOOD UREA NITROGEN 31 mg/dl (7-20); CALCIUM 8.2 mg/dl (8.4-10.2); CARBON DIOXIDE 17 mmol/L (21-31); CHLORIDE 110 mmol/L (97-110); CREATININE 1.83 mg/dl (0.61-1.24); Estimated GFR 39 mL/min (>60); GLUCOSE 98 mg/dl (70-220); POTASSIUM 3.5 mmol/L (3.5-5.1); SODIUM 138 mmol/L (135-144)
[2018-10-28] MEDS ORDERED: ROCURONIUM 50 MG INJ (07:00)
[2018-10-28 07:30] LABS: BAND NEUTROPHILS #M 2.6 10^3/ul (0.0-0.6); BAND NEUTROPHILS % (M) 8 % (0-4); BURR CELLS 1+ (0-0); LYMPHOCYTES #M 1.6 10^3/ul (0.8-2.9); LYMPHOCYTES % (M) 5 % (15-51); MONOCYTE #M 1.3 10^3/ul (0.3-0.9); MONOCYTES % (M) 4 % (0-11); PLATELET ESTIMATE NORMAL; POIKILOCYTOSIS 3+ (0-0); POLYCHROMASIA 1+ (0-0); REACTIVE LYMPHOCYTES #M 0.6 10^3/ul (0.0-0.0); REACTIVE LYMPHOCYTES% (M) 2 % (0-0); SEG NEUT #M 28.2 10^3/ul (1.6-7.5); SEGMENTED NEUTROPHILS (M) % 81 % (39-77); SMUDGE%M 1 % (0-0)
[2018-10-28] MEDS: INSULIN ASPART [NOVOLOG] 3 ML PEN SC ×7 (07:35→20:00)
[2018-10-28] MEDS: SOD CHLORIDE 0.9% 1,000 ML IV ×3 (08:16→17:53)
[2018-10-28] MEDS: FERROUS SULFATE (EC) 325 MG TAB PO (08:18)
[2018-10-28] MEDS: LINAGLIPTIN 5 MG TABLET PO (08:18)
[2018-10-28] MEDS: PENTOXIFYLLINE (SR) 400 MG TAB PO ×3 (08:18→19:55)
[2018-10-28] MEDS: DAKINS 0.0125%(1/40) 473 ML SOLUTION TP ×2 (08:19→21:06)
[2018-10-28] MEDS: COLLAGENASE 5 GM (UD JAR) TOP (08:21)
[2018-10-28] MEDS: DEXTROSE 5%-0.45% NACL 1,000 ML IV (19:52)
[2018-10-28] MEDS: INSULIN GLARGINE [LANTus] (100 UNITS/ML) SYG SC (19:59)
[2018-10-28] MEDS: ACETAMINOPHEN 325 MG TAB PO (21:09)
[2018-10-28] MEDS ORDERED: PROPOFOL 20 ML (22:28)
[2018-10-28] MEDS: POLYMYXIN/BACITRACIN 1L IRRIG IRR (23:09)
[2018-10-28] MEDS ORDERED: LIDOCAINE 2% (SDV) 5 ML INJ (23:15)
[2018-10-28] MEDS ORDERED: DEXAMETHASONE 4 MG/ML 5 ML INJ (23:15)
[2018-10-28] MEDS ORDERED: SUGAMMADEX SODIUM 200 MG/2 ML VIAL IV (23:29)
[2018-10-29] MEDS: ACCU-CHEK XX ×2 (02:00)
[2018-10-29] MEDS: DEXTROSE 5%-0.45% NACL 1,000 ML IV (02:09)
[2018-10-29 05:14] LABS: WHITE BLOOD COUNT 23.5 10^3/ul (4.8-10.8)
[2018-10-29 05:14] LABS: ABNORMAL IP MESSAGE 1; HEMATOCRIT 22.9 % (42.0-52.0); HEMOGLOBIN 7.7 g/dl (14.0-18.0); MEAN CORPUSCULAR HEMOGLOBIN 29.6 pg (29.0-33.0); MEAN CORPUSCULAR HGB CONC 33.6 g/dl (32.0-37.0); MEAN CORPUSCULAR VOLUME 88.1 fl (82.0-101.0); MEAN PLATELET VOLUME 9.4 fl (7.4-10.4); PLATELET COUNT 292 10^3/UL (140-415); POSITIVE DIFF @See below; RED CELL DISTRIBUTION WIDTH 14.3 % (11.5-14.5)
[2018-10-29 05:37] LABS: ADD MAN DIFF? YES
[2018-10-29 05:46] LABS: ALANINE AMINOTRANSFERASE 22 IU/L (13-69); ALBUMIN 2.1 g/dl (3.3-4.9); ALBUMIN/GLOBULIN RATIO 0.65; ALKALINE PHOSPHATASE 153 IU/L (42-121); ANION GAP 8 (5-13); ASPARTATE AMINO TRANSFERASE 23 IU/L (15-46); BILIRUBIN,INDIRECT 0.3 mg/dl (0-1.1); BILIRUBIN,TOTAL 0.3 mg/dl (0.2-1.3); BLOOD UREA NITROGEN 30 mg/dl (7-20); CALCIUM 7.7 mg/dl (8.4-10.2); CARBON DIOXIDE 17 mmol/L (21-31); CHLORIDE 113 mmol/L (97-110); Estimated GFR 37 mL/min (>60); GLUCOSE 180 mg/dl (70-220); SODIUM 138 mmol/L (135-144); TOTAL PROTEIN 5.3 g/dl (6.1-8.1)
[2018-10-29] MEDS: PANTOPRAZOLE (EC) 40 MG TAB PO (06:18)
[2018-10-29] MEDS: HYDROCODONE/APAP (5/325) TAB PO (06:18)
[2018-10-29] MEDS: PIPER-TAZO 3.375 GM IV (PMX) 100 ML IVPB ×3 (06:19→21:19)
[2018-10-29 07:44] LABS: BAND NEUTROPHILS #M 0.9 10^3/ul (0.0-0.6); BAND NEUTROPHILS % (M) 4 % (0-4); BURR CELLS 1+ (0-0); LYMPHOCYTES #M 0.2 10^3/ul (0.8-2.9); LYMPHOCYTES % (M) 1 % (15-51); PLATELET ESTIMATE NORMAL; POIKILOCYTOSIS 2+ (0-0); SEG NEUT #M 22.5 10^3/ul (1.6-7.5); SEGMENTED NEUTROPHILS (M) % 95 % (39-77); SMUDGE%M 2 % (0-0)
[2018-10-29] MEDS: INSULIN ASPART [NOVOLOG] 3 ML PEN SC ×7 (07:47→21:05)
[2018-10-29] MEDS: COLLAGENASE 5 GM (UD JAR) TOP (08:26)
[2018-10-29] MEDS: FERROUS SULFATE (EC) 325 MG TAB PO (08:27)
[2018-10-29] MEDS: PENTOXIFYLLINE (SR) 400 MG TAB PO ×3 (08:27→21:02)
[2018-10-29] MEDS: LINAGLIPTIN 5 MG TABLET PO (08:27)
[2018-10-29] MEDS: DAKINS 0.0125%(1/40) 473 ML SOLUTION TP ×2 (08:27→21:14)
[2018-10-29 12:28] LABS: HEMATOCRIT 23.8 % (42.0-52.0); HEMOGLOBIN 7.9 g/dl (14.0-18.0)
[2018-10-29] MEDS: VANCOMYCIN HCL 1.5 GM in SOD CHLORIDE 0.9% 250 ML IVPB (14:44)
[2018-10-29] MEDS: INSULIN GLARGINE [LANTus] (100 UNITS/ML) SYG SC (21:04)
[2018-10-29] MEDS: ACETAMINOPHEN 325 MG TAB PO (21:07)
[2018-10-30] MEDS: ACCU-CHEK XX ×2 (02:00)
[2018-10-30] MEDS: PIPER-TAZO 3.375 GM IV (PMX) 100 ML IVPB ×2 (05:41→13:51)
[2018-10-30] MEDS: PANTOPRAZOLE (EC) 40 MG TAB PO (05:41)
[2018-10-30 07:45] LABS: ADD MAN DIFF? NO
[2018-10-30 07:52] LABS: WHITE BLOOD COUNT 20.7 10^3/ul (4.8-10.8)
[2018-10-30 07:52] LABS: BASOPHILS % 0.2 % (0.0-2.0); HEMATOCRIT 21.6 % (42.0-52.0); HEMOGLOBIN 7.3 g/dl (14.0-18.0); LYMPHOCYTES # 1.3 10^3/ul (0.8-2.9); LYMPHOCYTES % 6.2 % (15.0-51.0); MEAN CORPUSCULAR HEMOGLOBIN 29.7 pg (29.0-33.0); MEAN CORPUSCULAR HGB CONC 33.8 g/dl (32.0-37.0); MEAN CORPUSCULAR VOLUME 87.8 fl (82.0-101.0); MEAN PLATELET VOLUME 9.4 fl (7.4-10.4); MONOCYTE # 0.4 10^3/ul (0.3-0.9); MONOCYTES % 2.1 % (0.0-11.0); NEUTROPHIL # 18.4 10^3/ul (1.6-7.5); NEUTROPHILS % 88.6 % (39.0-77.0); PLATELET COUNT 312 10^3/UL (140-415); RED BLOOD COUNT 2.46 10^6/ul (4.70-6.10); RED CELL DISTRIBUTION WIDTH 13.9 % (11.5-14.5)
[2018-10-30] MEDS: INSULIN ASPART [NOVOLOG] 3 ML PEN SC ×7 (07:58→21:00)
[2018-10-30] MEDS: PENTOXIFYLLINE (SR) 400 MG TAB PO ×3 (08:00→20:12)
[2018-10-30] MEDS: FERROUS SULFATE (EC) 325 MG TAB PO (08:00)
[2018-10-30] MEDS: LINAGLIPTIN 5 MG TABLET PO (08:00)
[2018-10-30] MEDS: COLLAGENASE 5 GM (UD JAR) TOP (08:03)
[2018-10-30] MEDS: DAKINS 0.0125%(1/40) 473 ML SOLUTION TP ×2 (08:03→21:00)
[2018-10-30 08:12] LABS: ANION GAP 9 (5-13); BLOOD UREA NITROGEN 45 mg/dl (7-20); CARBON DIOXIDE 16 mmol/L (21-31); CHLORIDE 113 mmol/L (97-110); CREATININE 2.19 mg/dl (0.61-1.24); Estimated GFR 32 mL/min (>60); GLUCOSE 217 mg/dl (70-220); SODIUM 138 mmol/L (135-144)
[2018-10-30] MEDS: POLYETHYLENE GLYCOL 17 GM PACKET PO (08:57)
[2018-10-30] MEDS: SOD CHLORIDE 0.9% 1,000 ML IV (08:58)
[2018-10-30] MEDS: FLUCONAZOLE 100 MG TAB PO (14:45)
[2018-10-30] MEDS: FUROSEMIDE 20 MG INJ IV (16:30)
[2018-10-30 16:37] LABS: ADD UMIC YES; UR AMORPHOUS CRYSTAL FEW /HPF (NONE SEEN); UR ASCORBIC ACID NEGATIVE (NEGATIVE); UR BACTERIA FEW /HPF (NONE SEEN); UR BILIRUBIN (Dip) NEGATIVE (NEGATIVE); UR BLOOD (Dip) 3+ mg/dL (NEGATIVE); UR CLARITY SLIGHTLY CLOUDY (CLEAR); UR COLOR YELLOW (YELLOW); UR GLUCOSE (Dip) 1+ mg/dL (NEGATIVE); UR KETONES (Dip) NEGATIVE (NEGATIVE); UR LEUKOCYTE ESTERASE (Dip) NEGATIVE Leu/ul (NEGATIVE); UR NITRITE (Dip) NEGATIVE (NEGATIVE); UR RBC 0 /HPF (0-5); UR SPECIFIC GRAVITY (Dip) 1.016 (1.003-1.030); UR TOTAL PROTEIN (Dip) 2+ mg/dl (NEGATIVE); UR UROBILINOGEN (Dip) NEGATIVE (NEGATIVE); UR WBC 2 /HPF (0-5)
[2018-10-30] MEDS: INSULIN GLARGINE [LANTus] (100 UNITS/ML) SYG SC (20:10)
[2018-10-30] MEDS: DOCUSATE SODIUM 100 MG CAP PO (21:21)
[2018-10-30] MEDS: PIPER-TAZO 2.25 GM (PMX) 50 ML IVPB (21:21)
[2018-10-31] MEDS: ACCU-CHEK XX ×2 (02:00)
[2018-10-31] MEDS: PIPER-TAZO 2.25 GM (PMX) 50 ML IVPB ×3 (05:46→21:42)
[2018-10-31] MEDS: PANTOPRAZOLE (EC) 40 MG TAB PO (05:50)
[2018-10-31 06:33] LABS: ADD MAN DIFF? NO
[2018-10-31 06:40] LABS: BASOPHILS % 0.1 % (0.0-2.0); EOSINOPHILS # 0.1 10^3/ul (0.0-0.5); EOSINOPHILS % 0.3 % (0.0-7.0); HEMATOCRIT 22.5 % (42.0-52.0); HEMOGLOBIN 7.5 g/dl (14.0-18.0); LYMPHOCYTES % 13.7 % (15.0-51.0); MEAN CORPUSCULAR HEMOGLOBIN 29.3 pg (29.0-33.0); MEAN CORPUSCULAR HGB CONC 33.3 g/dl (32.0-37.0); MEAN CORPUSCULAR VOLUME 87.9 fl (82.0-101.0); MEAN PLATELET VOLUME 9.3 fl (7.4-10.4); MONOCYTE # 0.7 10^3/ul (0.3-0.9); MONOCYTES % 4.8 % (0.0-11.0); NEUTROPHIL # 11.1 10^3/ul (1.6-7.5); NEUTROPHILS % 77.3 % (39.0-77.0); PLATELET COUNT 330 10^3/UL (140-415); RED BLOOD COUNT 2.56 10^6/ul (4.70-6.10); RED CELL DISTRIBUTION WIDTH 13.8 % (11.5-14.5)
[2018-10-31 06:40] LABS: WHITE BLOOD COUNT 14.3 10^3/ul (4.8-10.8)
[2018-10-31 07:12] LABS: ANION GAP 9 (5-13); BLOOD UREA NITROGEN 40 mg/dl (7-20); CALCIUM 7.7 mg/dl (8.4-10.2); CARBON DIOXIDE 20 mmol/L (21-31); CHLORIDE 111 mmol/L (97-110); CREATININE 2.08 mg/dl (0.61-1.24); Estimated GFR 34 mL/min (>60); GLUCOSE 71 mg/dl (70-220); POTASSIUM 3.3 mmol/L (3.5-5.1); SODIUM 140 mmol/L (135-144)
[2018-10-31] MEDS: INSULIN ASPART [NOVOLOG] 3 ML PEN SC ×7 (07:35→21:00)
[2018-10-31] MEDS: LINAGLIPTIN 5 MG TABLET PO (08:58)
[2018-10-31] MEDS: FERROUS SULFATE (EC) 325 MG TAB PO (08:58)
[2018-10-31] MEDS: FLUCONAZOLE 100 MG TAB PO (08:58)
[2018-10-31] MEDS: PENTOXIFYLLINE (SR) 400 MG TAB PO ×3 (08:58→21:42)
[2018-10-31] MEDS: COLLAGENASE 5 GM (UD JAR) TOP (09:00)
[2018-10-31] MEDS: DAKINS 0.0125%(1/40) 473 ML SOLUTION TP ×2 (09:00→21:00)
[2018-10-31] MEDS: SOD CHLORIDE 0.9% 1,000 ML IV (09:02)
[2018-10-31] MEDS: DOCUSATE SODIUM 100 MG CAP PO (12:38)
[2018-10-31] MEDS: POLYETHYLENE GLYCOL 17 GM PACKET PO (12:38)
[2018-10-31] MEDS ORDERED: POLYETHYLENE GLYCOL 17 GM PACKET PO (14:30)
[2018-10-31] MEDS: AMLODIPINE 5 MG TAB PO (15:46)
[2018-10-31] MEDS: INSULIN GLARGINE [LANTus] (100 UNITS/ML) SYG SC (21:51)
[2018-11-01] MEDS: ACCU-CHEK XX ×2 (02:00)
[2018-11-01 06:08] LABS: ADD MAN DIFF? NO
[2018-11-01] MEDS: PANTOPRAZOLE (EC) 40 MG TAB PO (06:12)
[2018-11-01] MEDS: PIPER-TAZO 2.25 GM (PMX) 50 ML IVPB (06:14)
[2018-11-01 06:24] LABS: WHITE BLOOD COUNT 11.5 10^3/ul (4.8-10.8)
[2018-11-01 06:24] LABS: BASOPHILS % 0.2 % (0.0-2.0); EOSINOPHILS # 0.1 10^3/ul (0.0-0.5); EOSINOPHILS % 0.9 % (0.0-7.0); HEMATOCRIT 22.4 % (42.0-52.0); HEMOGLOBIN 7.7 g/dl (14.0-18.0); LYMPHOCYTES # 1.7 10^3/ul (0.8-2.9); LYMPHOCYTES % 14.5 % (15.0-51.0); MEAN CORPUSCULAR HEMOGLOBIN 29.8 pg (29.0-33.0); MEAN CORPUSCULAR HGB CONC 34.4 g/dl (32.0-37.0); MEAN CORPUSCULAR VOLUME 86.8 fl (82.0-101.0); MEAN PLATELET VOLUME 9.1 fl (7.4-10.4); MONOCYTE # 0.5 10^3/ul (0.3-0.9); MONOCYTES % 4.2 % (0.0-11.0); NEUTROPHIL # 8.8 10^3/ul (1.6-7.5); NEUTROPHILS % 76.5 % (39.0-77.0); PLATELET COUNT 302 10^3/UL (140-415); RED BLOOD COUNT 2.58 10^6/ul (4.70-6.10); RED CELL DISTRIBUTION WIDTH 13.3 % (11.5-14.5)
[2018-11-01 06:41] LABS: ANION GAP 7 (5-13); BLOOD UREA NITROGEN 31 mg/dl (7-20); CALCIUM 7.8 mg/dl (8.4-10.2); CARBON DIOXIDE 22 mmol/L (21-31); CHLORIDE 112 mmol/L (97-110); CREATININE 1.81 mg/dl (0.61-1.24); Estimated GFR 39 mL/min (>60); GLUCOSE 76 mg/dl (70-220); POTASSIUM 3.5 mmol/L (3.5-5.1); SODIUM 141 mmol/L (135-144)
[2018-11-01] MEDS: INSULIN ASPART [NOVOLOG] 3 ML PEN SC ×5 (08:00→21:00)
[2018-11-01] MEDS: SOD CHLORIDE 0.9% 1,000 ML IV (08:39)
[2018-11-01] MEDS: PENTOXIFYLLINE (SR) 400 MG TAB PO ×3 (08:56→21:04)
[2018-11-01] MEDS: FLUCONAZOLE 100 MG TAB PO (08:57)
[2018-11-01] MEDS: FERROUS SULFATE (EC) 325 MG TAB PO (08:57)
[2018-11-01] MEDS: LINAGLIPTIN 5 MG TABLET PO (08:58)
[2018-11-01] MEDS: AMLODIPINE 5 MG TAB PO (08:58)
[2018-11-01] MEDS: COLLAGENASE 5 GM (UD JAR) TOP (09:00)
[2018-11-01] MEDS: DAKINS 0.0125%(1/40) 473 ML SOLUTION TP ×2 (09:00→21:00)
[2018-11-01] MEDS: MAGNESIUM CITRATE 300 ML BTL PO (13:03)
[2018-11-01] MEDS: CALCIUM CARBONATE 500 MG CHEW TAB PO ×2 (13:04→19:05)
[2018-11-01] MEDS: FUROSEMIDE 20 MG INJ IM (13:07)
[2018-11-01] MEDS ORDERED: PIPER-TAZO 3.375 GM IV (PMX) 100 ML (20:50)
[2018-11-01] MEDS: PIPER-TAZO 3.375 GM IV (PMX) 100 ML IVPB (21:05)
[2018-11-01] MEDS: INSULIN GLARGINE [LANTus] (100 UNITS/ML) SYG SC (21:06)
[2018-11-02] MEDS: ACCU-CHEK XX (02:00)
[2018-11-02] MEDS: PIPER-TAZO 3.375 GM IV (PMX) 100 ML IVPB ×3 (06:02→22:19)
[2018-11-02] MEDS: PANTOPRAZOLE (EC) 40 MG TAB PO (06:02)
[2018-11-02 06:10] LABS: ADD MAN DIFF? NO
[2018-11-02 06:34] LABS: ABNORMAL IP MESSAGE 1; BASOPHILS % 0.1 % (0.0-2.0); EOSINOPHILS # 0.1 10^3/ul (0.0-0.5); EOSINOPHILS % 0.9 % (0.0-7.0); HEMATOCRIT 20.4 % (42.0-52.0); LYMPHOCYTES # 1.5 10^3/ul (0.8-2.9); MEAN CORPUSCULAR HEMOGLOBIN 29.6 pg (29.0-33.0); MEAN CORPUSCULAR HGB CONC 33.3 g/dl (32.0-37.0); MEAN CORPUSCULAR VOLUME 88.7 fl (82.0-101.0); MEAN PLATELET VOLUME 9.3 fl (7.4-10.4); MONOCYTE # 0.4 10^3/ul (0.3-0.9); MONOCYTES % 3.8 % (0.0-11.0); NEUTROPHIL # 9.2 10^3/ul (1.6-7.5); PLATELET COUNT 279 10^3/UL (140-415); POSITIVE DIFF @See below; RED CELL DISTRIBUTION WIDTH 13.4 % (11.5-14.5)
[2018-11-02 06:34] LABS: WHITE BLOOD COUNT 11.4 10^3/ul (4.8-10.8)
[2018-11-02 06:36] LABS: ANION GAP 7 (5-13); BLOOD UREA NITROGEN 27 mg/dl (7-20); CALCIUM 7.8 mg/dl (8.4-10.2); CARBON DIOXIDE 24 mmol/L (21-31); CHLORIDE 111 mmol/L (97-110); Estimated GFR 42 mL/min (>60); GLUCOSE 58 mg/dl (70-220); SODIUM 142 mmol/L (135-144)
[2018-11-02 06:57] LABS: POTASSIUM 2.8 mmol/L (3.5-5.1)
[2018-11-02 07:13] LABS: HEMOGLOBIN 6.8 g/dl (14.0-18.0)
[2018-11-02] MEDS: INSULIN ASPART [NOVOLOG] 3 ML PEN SC ×4 (08:00→20:44)
[2018-11-02] MEDS: LINAGLIPTIN 5 MG TABLET PO (08:12)
[2018-11-02] MEDS: POTASSIUM CHLORIDE (SR) 20 MEQ TAB PO (08:12)
[2018-11-02] MEDS: PENTOXIFYLLINE (SR) 400 MG TAB PO ×3 (08:12→20:44)
[2018-11-02] MEDS: FLUCONAZOLE 100 MG TAB PO (08:12)
[2018-11-02] MEDS: CALCIUM CARBONATE 500 MG CHEW TAB PO ×3 (08:12→20:44)
[2018-11-02] MEDS: FERROUS SULFATE (EC) 325 MG TAB PO (08:12)
[2018-11-02] MEDS: AMLODIPINE 10 MG TAB PO (08:13)
[2018-11-02] MEDS: COLLAGENASE 5 GM (UD JAR) TOP (08:14)
[2018-11-02] MEDS: DAKINS 0.0125%(1/40) 473 ML SOLUTION TP ×2 (08:14→20:45)
[2018-11-02] MEDS: SOD CHLORIDE 0.9% 1,000 ML IV (08:15)
[2018-11-02] MEDS: ACETAMINOPHEN 325 MG TAB PO (14:03)
[2018-11-02] MEDS: DIPHENHYDRAMINE 50 MG INJ IV (14:03)
[2018-11-02 14:27] LABS: RETICULOCYTE RBC 2.27
[2018-11-02 14:27] LABS: RETICULOCYTE COUNT # 0.056 X10^6 (0.020-0.110); RETICULOCYTE COUNT % 2.5 % (0.5-1.5)
[2018-11-02 14:32] LABS: IMMEDIATE SPIN CROSSMATCH 1 1
[2018-11-02 14:33] LABS: IRON 18 ug/dl (35-150)
[2018-11-02 14:43] LABS: % IRON SATURATION 12 % SAT (22-52); TOTAL IRON BINDING CAPACITY 150 ug/dl (241-421)
[2018-11-02 15:40] LABS: FOLATE 4.6 ng/ml (2.8-20.0)
[2018-11-02 19:59] LABS: OCCULT BLOOD STOOL NEGATIVE (NEGATIVE)
[2018-11-02] MEDS: INSULIN GLARGINE [LANTus] (100 UNITS/ML) SYG SC (20:44)
[2018-11-03] MEDS: ACCU-CHEK XX (02:00)
[2018-11-03] MEDS: PANTOPRAZOLE (EC) 40 MG TAB PO (05:52)
[2018-11-03] MEDS: PIPER-TAZO 3.375 GM IV (PMX) 100 ML IVPB ×3 (05:52→21:01)
[2018-11-03] MEDS: INSULIN ASPART [NOVOLOG] 3 ML PEN SC ×4 (08:00→20:26)
[2018-11-03] MEDS: CALCIUM CARBONATE 500 MG CHEW TAB PO ×3 (09:23→17:57)
[2018-11-03] MEDS: LINAGLIPTIN 5 MG TABLET PO (09:23)
[2018-11-03] MEDS: PENTOXIFYLLINE (SR) 400 MG TAB PO ×3 (09:23→20:26)
[2018-11-03] MEDS: AMLODIPINE 10 MG TAB PO (09:23)
[2018-11-03] MEDS: DAKINS 0.0125%(1/40) 473 ML SOLUTION TP ×2 (09:24→21:01)
[2018-11-03] MEDS: FLUCONAZOLE 100 MG TAB PO (09:24)
[2018-11-03] MEDS: COLLAGENASE 5 GM (UD JAR) TOP (09:24)
[2018-11-03] MEDS: FERROUS SULFATE (EC) 325 MG TAB PO (09:24)
[2018-11-03 10:03] LABS: ADD MAN DIFF? NO
[2018-11-03 10:10] LABS: BASOPHILS % 0.2 % (0.0-2.0); EOSINOPHILS # 0.1 10^3/ul (0.0-0.5); EOSINOPHILS % 1.2 % (0.0-7.0); HEMATOCRIT 23.5 % (42.0-52.0); HEMOGLOBIN 7.7 g/dl (14.0-18.0); LYMPHOCYTES # 1.4 10^3/ul (0.8-2.9); LYMPHOCYTES % 11.5 % (15.0-51.0); MEAN CORPUSCULAR HEMOGLOBIN 29.1 pg (29.0-33.0); MEAN CORPUSCULAR HGB CONC 32.8 g/dl (32.0-37.0); MEAN CORPUSCULAR VOLUME 88.7 fl (82.0-101.0); MEAN PLATELET VOLUME 9.1 fl (7.4-10.4); MONOCYTE # 0.5 10^3/ul (0.3-0.9); NEUTROPHIL # 9.8 10^3/ul (1.6-7.5); NEUTROPHILS % 81.4 % (39.0-77.0); PLATELET COUNT 273 10^3/UL (140-415); RED BLOOD COUNT 2.65 10^6/ul (4.70-6.10); RED CELL DISTRIBUTION WIDTH 13.6 % (11.5-14.5)
[2018-11-03 10:10] LABS: WHITE BLOOD COUNT 12.1 10^3/ul (4.8-10.8)
[2018-11-03 10:33] LABS: MAGNESIUM 1.9 mg/dl (1.7-2.5)
[2018-11-03 10:33] LABS: PHOSPHORUS 2.8 mg/dl (2.5-4.9)
[2018-11-03 10:42] LABS: ANION GAP 4 (5-13); BLOOD UREA NITROGEN 22 mg/dl (7-20); CALCIUM 7.7 mg/dl (8.4-10.2); CARBON DIOXIDE 26 mmol/L (21-31); CHLORIDE 111 mmol/L (97-110); CREATININE 1.63 mg/dl (0.61-1.24); Estimated GFR 44 mL/min (>60); GLUCOSE 78 mg/dl (70-220); POTASSIUM 3.4 mmol/L (3.5-5.1); SODIUM 141 mmol/L (135-144)
[2018-11-03] MEDS: POTASSIUM CHLORIDE (SR) 20 MEQ TAB PO (13:49)
[2018-11-03] MEDS: METOPROLOL (XL) 25 MG TAB PO (13:53)
[2018-11-03] MEDS: EPOETIN ALFA-EPBX (NON-ESRD) 3,000 UNIT/ML VIAL SC (17:56)
[2018-11-03] MEDS: INSULIN GLARGINE [LANTus] (100 UNITS/ML) SYG SC (20:25)
[2018-11-04] MEDS: ACCU-CHEK XX (02:00)
[2018-11-04] MEDS: PANTOPRAZOLE (EC) 40 MG TAB PO (06:07)
[2018-11-04] MEDS: PIPER-TAZO 3.375 GM IV (PMX) 100 ML IVPB ×3 (06:07→21:30)
[2018-11-04 06:59] LABS: ADD MAN DIFF? NO
[2018-11-04 07:11] LABS: BASOPHILS % 0.2 % (0.0-2.0); EOSINOPHILS # 0.1 10^3/ul (0.0-0.5); HEMATOCRIT 22.9 % (42.0-52.0); HEMOGLOBIN 7.7 g/dl (14.0-18.0); LYMPHOCYTES # 1.6 10^3/ul (0.8-2.9); LYMPHOCYTES % 12.6 % (15.0-51.0); MEAN CORPUSCULAR HEMOGLOBIN 29.6 pg (29.0-33.0); MEAN CORPUSCULAR HGB CONC 33.6 g/dl (32.0-37.0); MEAN CORPUSCULAR VOLUME 88.1 fl (82.0-101.0); MONOCYTE # 0.6 10^3/ul (0.3-0.9); MONOCYTES % 4.4 % (0.0-11.0); NEUTROPHIL # 10.2 10^3/ul (1.6-7.5); NEUTROPHILS % 80.4 % (39.0-77.0); PLATELET COUNT 273 10^3/UL (140-415); RED CELL DISTRIBUTION WIDTH 13.7 % (11.5-14.5)
[2018-11-04 07:11] LABS: WHITE BLOOD COUNT 12.6 10^3/ul (4.8-10.8)
[2018-11-04 07:36] LABS: ANION GAP 4 (5-13); BLOOD UREA NITROGEN 21 mg/dl (7-20); CALCIUM 7.7 mg/dl (8.4-10.2); CARBON DIOXIDE 25 mmol/L (21-31); CHLORIDE 111 mmol/L (97-110); CREATININE 1.69 mg/dl (0.61-1.24); Estimated GFR 43 mL/min (>60); GLUCOSE 78 mg/dl (70-220); POTASSIUM 3.6 mmol/L (3.5-5.1); SODIUM 140 mmol/L (135-144)
[2018-11-04] MEDS: INSULIN ASPART [NOVOLOG] 3 ML PEN SC ×4 (08:00→21:30)
[2018-11-04] MEDS: COLLAGENASE 5 GM (UD JAR) TOP (08:17)
[2018-11-04] MEDS: AMLODIPINE 10 MG TAB PO (08:17)
[2018-11-04] MEDS: PENTOXIFYLLINE (SR) 400 MG TAB PO ×3 (08:17→21:30)
[2018-11-04] MEDS: CALCIUM CARBONATE 500 MG CHEW TAB PO ×3 (08:17→20:00)
[2018-11-04] MEDS: LINAGLIPTIN 5 MG TABLET PO (08:17)
[2018-11-04] MEDS: METOPROLOL (XL) 25 MG TAB PO (08:18)
[2018-11-04] MEDS: FLUCONAZOLE 100 MG TAB PO (08:18)
[2018-11-04] MEDS: FERROUS SULFATE (EC) 325 MG TAB PO (08:18)
[2018-11-04] MEDS: DAKINS 0.0125%(1/40) 473 ML SOLUTION TP ×2 (08:19→21:00)
[2018-11-04 15:02] LABS: HAPTOGLOBIN 266 mg/dL (43-212)
[2018-11-04] MEDS: INSULIN GLARGINE [LANTus] (100 UNITS/ML) SYG SC (21:29)
[2018-11-05] MEDS: ACCU-CHEK XX ×2 (01:37→22:39)
[2018-11-05] MEDS: PIPER-TAZO 3.375 GM IV (PMX) 100 ML IVPB ×3 (05:50→20:30)
[2018-11-05] MEDS: PANTOPRAZOLE (EC) 40 MG TAB PO (05:50)
[2018-11-05] MEDS: INSULIN ASPART [NOVOLOG] 3 ML PEN SC ×4 (08:00→20:28)
[2018-11-05] MEDS: CALCIUM CARBONATE 500 MG CHEW TAB PO ×3 (08:10→20:27)
[2018-11-05] MEDS: FERROUS SULFATE (EC) 325 MG TAB PO (08:10)
[2018-11-05] MEDS: LINAGLIPTIN 5 MG TABLET PO (08:11)
[2018-11-05] MEDS: AMLODIPINE 10 MG TAB PO (08:11)
[2018-11-05] MEDS: PENTOXIFYLLINE (SR) 400 MG TAB PO ×3 (08:11→20:27)
[2018-11-05] MEDS: FLUCONAZOLE 100 MG TAB PO (08:11)
[2018-11-05] MEDS: COLLAGENASE 5 GM (UD JAR) TOP (08:12)
[2018-11-05] MEDS: DAKINS 0.0125%(1/40) 473 ML SOLUTION TP ×2 (08:12→20:30)
[2018-11-05] MEDS: METOPROLOL (XL) 25 MG TAB PO (08:12)
[2018-11-05] MEDS: INSULIN GLARGINE [LANTus] (100 UNITS/ML) SYG SC (20:35)
[2018-11-06] MEDS: PIPER-TAZO 3.375 GM IV (PMX) 100 ML IVPB ×3 (05:24→21:14)
[2018-11-06] MEDS: PANTOPRAZOLE (EC) 40 MG TAB PO (05:24)
[2018-11-06 06:07] LABS: ADD MAN DIFF? NO
[2018-11-06 06:10] LABS: BASOPHILS % 0.3 % (0.0-2.0); EOSINOPHILS # 0.1 10^3/ul (0.0-0.5); EOSINOPHILS % 0.9 % (0.0-7.0); HEMATOCRIT 21.9 % (42.0-52.0); HEMOGLOBIN 7.4 g/dl (14.0-18.0); LYMPHOCYTES # 1.4 10^3/ul (0.8-2.9); LYMPHOCYTES % 11.7 % (15.0-51.0); MEAN CORPUSCULAR HEMOGLOBIN 30.2 pg (29.0-33.0); MEAN CORPUSCULAR HGB CONC 33.8 g/dl (32.0-37.0); MEAN CORPUSCULAR VOLUME 89.4 fl (82.0-101.0); MONOCYTE # 0.6 10^3/ul (0.3-0.9); MONOCYTES % 5.5 % (0.0-11.0); NEUTROPHIL # 9.4 10^3/ul (1.6-7.5); NEUTROPHILS % 80.7 % (39.0-77.0); PLATELET COUNT 230 10^3/UL (140-415); RED BLOOD COUNT 2.45 10^6/ul (4.70-6.10); RED CELL DISTRIBUTION WIDTH 13.8 % (11.5-14.5)
[2018-11-06 06:10] LABS: WHITE BLOOD COUNT 11.6 10^3/ul (4.8-10.8)
[2018-11-06 06:27] LABS: ANION GAP 6 (5-13); BLOOD UREA NITROGEN 19 mg/dl (7-20); CARBON DIOXIDE 24 mmol/L (21-31); CHLORIDE 109 mmol/L (97-110); CREATININE 1.56 mg/dl (0.61-1.24); Estimated GFR 47 mL/min (>60); GLUCOSE 68 mg/dl (70-220); POTASSIUM 3.3 mmol/L (3.5-5.1); SODIUM 139 mmol/L (135-144)
[2018-11-06] MEDS: INSULIN ASPART [NOVOLOG] 3 ML PEN SC ×4 (07:57→20:49)
[2018-11-06] MEDS: FERROUS SULFATE (EC) 325 MG TAB PO (08:15)
[2018-11-06] MEDS: FLUCONAZOLE 100 MG TAB PO (08:15)
[2018-11-06] MEDS: PENTOXIFYLLINE (SR) 400 MG TAB PO ×4 (08:15→20:31)
[2018-11-06] MEDS: LINAGLIPTIN 5 MG TABLET PO (08:15)
[2018-11-06] MEDS: CALCIUM CARBONATE 500 MG CHEW TAB PO ×4 (08:15→19:05)
[2018-11-06] MEDS: AMLODIPINE 10 MG TAB PO (08:18)
[2018-11-06] MEDS: METOPROLOL (XL) 25 MG TAB PO (08:19)
[2018-11-06] MEDS: COLLAGENASE 5 GM (UD JAR) TOP (08:23)
[2018-11-06] MEDS: DAKINS 0.0125%(1/40) 473 ML SOLUTION TP ×2 (08:23→20:50)
[2018-11-06] MEDS: POTASSIUM CHLORIDE (SR) 20 MEQ TAB PO (09:23)
[2018-11-06] MEDS: POTASSIUM CHLORIDE 100 ML IVPB ×2 (11:55→15:27)
[2018-11-06] MEDS: INSULIN GLARGINE [LANTus] (100 UNITS/ML) SYG SC (20:33)
[2018-11-07] MEDS: ACCU-CHEK XX (02:00)
[2018-11-07 05:23] LABS: ADD MAN DIFF? NO
[2018-11-07 05:29] LABS: BASOPHILS % 0.3 % (0.0-2.0); EOSINOPHILS # 0.1 10^3/ul (0.0-0.5); EOSINOPHILS % 1.1 % (0.0-7.0); HEMATOCRIT 21.9 % (42.0-52.0); HEMOGLOBIN 7.5 g/dl (14.0-18.0); LYMPHOCYTES # 1.4 10^3/ul (0.8-2.9); LYMPHOCYTES % 13.7 % (15.0-51.0); MEAN CORPUSCULAR HEMOGLOBIN 30.4 pg (29.0-33.0); MEAN CORPUSCULAR HGB CONC 34.2 g/dl (32.0-37.0); MEAN CORPUSCULAR VOLUME 88.7 fl (82.0-101.0); MEAN PLATELET VOLUME 9.2 fl (7.4-10.4); MONOCYTE # 0.6 10^3/ul (0.3-0.9); MONOCYTES % 5.5 % (0.0-11.0); NEUTROPHIL # 8.2 10^3/ul (1.6-7.5); NEUTROPHILS % 78.8 % (39.0-77.0); PLATELET COUNT 258 10^3/UL (140-415); RED BLOOD COUNT 2.47 10^6/ul (4.70-6.10); RED CELL DISTRIBUTION WIDTH 13.9 % (11.5-14.5)
[2018-11-07 05:29] LABS: WHITE BLOOD COUNT 10.4 10^3/ul (4.8-10.8)
[2018-11-07] MEDS: PIPER-TAZO 3.375 GM IV (PMX) 100 ML IVPB ×3 (05:34→22:47)
[2018-11-07] MEDS: PANTOPRAZOLE (EC) 40 MG TAB PO (05:34)
[2018-11-07 06:01] LABS: ANION GAP 5 (5-13); BLOOD UREA NITROGEN 20 mg/dl (7-20); CARBON DIOXIDE 25 mmol/L (21-31); CHLORIDE 108 mmol/L (97-110); CREATININE 1.94 mg/dl (0.61-1.24); Estimated GFR 36 mL/min (>60); GLUCOSE 70 mg/dl (70-220); POTASSIUM 4.1 mmol/L (3.5-5.1); SODIUM 138 mmol/L (135-144)
[2018-11-07] MEDS: GLUCOSE GEL 15 GRAM TUBE PO (07:57)
[2018-11-07] MEDS: INSULIN ASPART [NOVOLOG] 3 ML PEN SC ×4 (07:58→21:00)
[2018-11-07] MEDS: FLUCONAZOLE 100 MG TAB PO (08:25)
[2018-11-07] MEDS: AMLODIPINE 10 MG TAB PO (08:25)
[2018-11-07] MEDS: FERROUS SULFATE (EC) 325 MG TAB PO (08:25)
[2018-11-07] MEDS: PENTOXIFYLLINE (SR) 400 MG TAB PO ×3 (08:27→21:04)
[2018-11-07] MEDS: LINAGLIPTIN 5 MG TABLET PO (08:27)
[2018-11-07] MEDS: CALCIUM CARBONATE 500 MG CHEW TAB PO ×3 (08:27→21:04)
[2018-11-07] MEDS: METOPROLOL (XL) 25 MG TAB PO (08:27)
[2018-11-07] MEDS: DAKINS 0.0125%(1/40) 473 ML SOLUTION TP ×2 (08:28→21:00)
[2018-11-07] MEDS: COLLAGENASE 5 GM (UD JAR) TOP (08:28)
[2018-11-07] MEDS: EPOETIN ALFA-EPBX (ESRD) 4,000 UNIT/ML VIAL SC (12:44)
[2018-11-07] MEDS: FUROSEMIDE 20 MG TAB PO (17:07)
[2018-11-07] MEDS: INSULIN GLARGINE [LANTus] (100 UNITS/ML) SYG SC (21:06)
[2018-11-08] MEDS: ACCU-CHEK XX (02:00)
[2018-11-08 05:28] LABS: ADD MAN DIFF? NO
[2018-11-08 05:30] LABS: WHITE BLOOD COUNT 10.2 10^3/ul (4.8-10.8)
[2018-11-08 05:30] LABS: BASOPHILS % 0.2 % (0.0-2.0); EOSINOPHILS # 0.1 10^3/ul (0.0-0.5); EOSINOPHILS % 1.1 % (0.0-7.0); HEMATOCRIT 22.4 % (42.0-52.0); HEMOGLOBIN 7.5 g/dl (14.0-18.0); LYMPHOCYTES # 1.3 10^3/ul (0.8-2.9); LYMPHOCYTES % 13.2 % (15.0-51.0); MEAN CORPUSCULAR HEMOGLOBIN 29.9 pg (29.0-33.0); MEAN CORPUSCULAR HGB CONC 33.5 g/dl (32.0-37.0); MEAN CORPUSCULAR VOLUME 89.2 fl (82.0-101.0); MONOCYTE # 0.5 10^3/ul (0.3-0.9); MONOCYTES % 4.7 % (0.0-11.0); NEUTROPHIL # 8.2 10^3/ul (1.6-7.5); NEUTROPHILS % 80.3 % (39.0-77.0); PLATELET COUNT 244 10^3/UL (140-415); RED BLOOD COUNT 2.51 10^6/ul (4.70-6.10); RED CELL DISTRIBUTION WIDTH 14.1 % (11.5-14.5)
[2018-11-08] MEDS: PIPER-TAZO 3.375 GM IV (PMX) 100 ML IVPB ×3 (06:08→21:48)
[2018-11-08] MEDS: PANTOPRAZOLE (EC) 40 MG TAB PO (06:09)
[2018-11-08] MEDS: FUROSEMIDE 20 MG TAB PO ×2 (06:10→17:13)
[2018-11-08 06:31] LABS: ANION GAP 6 (5-13); BLOOD UREA NITROGEN 22 mg/dl (7-20); CARBON DIOXIDE 25 mmol/L (21-31); CHLORIDE 108 mmol/L (97-110); CREATININE 2.03 mg/dl (0.61-1.24); Estimated GFR 35 mL/min (>60); GLUCOSE 90 mg/dl (70-220); SODIUM 139 mmol/L (135-144)
[2018-11-08] MEDS: INSULIN ASPART [NOVOLOG] 3 ML PEN SC ×4 (08:00→20:36)
[2018-11-08] MEDS: CALCIUM CARBONATE 500 MG CHEW TAB PO ×3 (08:35→18:33)
[2018-11-08] MEDS: METOPROLOL (XL) 25 MG TAB PO (08:35)
[2018-11-08] MEDS: PENTOXIFYLLINE (SR) 400 MG TAB PO ×3 (08:35→20:36)
[2018-11-08] MEDS: FLUCONAZOLE 100 MG TAB PO (08:36)
[2018-11-08] MEDS: FERROUS SULFATE (EC) 325 MG TAB PO (08:36)
[2018-11-08] MEDS: AMLODIPINE 10 MG TAB PO (08:36)
[2018-11-08] MEDS: LINAGLIPTIN 5 MG TABLET PO (08:37)
[2018-11-08] MEDS: COLLAGENASE 5 GM (UD JAR) TOP (08:38)
[2018-11-08] MEDS: DAKINS 0.0125%(1/40) 473 ML SOLUTION TP ×2 (08:39→21:00)
[2018-11-08] MEDS: INSULIN GLARGINE [LANTus] (100 UNITS/ML) SYG SC (20:36)
[2018-11-09] MEDS: ACCU-CHEK XX (01:56)
[2018-11-09] MEDS: PANTOPRAZOLE (EC) 40 MG TAB PO (05:35)
[2018-11-09] MEDS: PIPER-TAZO 3.375 GM IV (PMX) 100 ML IVPB ×3 (05:35→22:12)
[2018-11-09] MEDS: FUROSEMIDE 20 MG TAB PO (05:37)
[2018-11-09] MEDS: INSULIN ASPART [NOVOLOG] 3 ML PEN SC ×4 (08:00→20:51)
[2018-11-09] MEDS: AMLODIPINE 10 MG TAB PO (08:46)
[2018-11-09] MEDS: FERROUS SULFATE (EC) 325 MG TAB PO (08:46)
[2018-11-09] MEDS: FLUCONAZOLE 100 MG TAB PO (08:46)
[2018-11-09] MEDS: PENTOXIFYLLINE (SR) 400 MG TAB PO ×3 (08:46→20:51)
[2018-11-09] MEDS: LINAGLIPTIN 5 MG TABLET PO (08:48)
[2018-11-09] MEDS: CALCIUM CARBONATE 500 MG CHEW TAB PO ×3 (08:48→19:16)
[2018-11-09] MEDS: METOPROLOL (XL) 25 MG TAB PO (08:49)
[2018-11-09] MEDS: COLLAGENASE 5 GM (UD JAR) TOP (08:51)
[2018-11-09] MEDS: DAKINS 0.0125%(1/40) 473 ML SOLUTION TP ×2 (08:51→21:00)
[2018-11-09] MEDS: INSULIN GLARGINE [LANTus] (100 UNITS/ML) SYG SC (20:52)
[2018-11-10] MEDS: ACCU-CHEK XX (00:55)
[2018-11-10] MEDS: PANTOPRAZOLE (EC) 40 MG TAB PO (06:02)
[2018-11-10 06:21] LABS: CREATININE 1.87 mg/dl (0.61-1.24)
[2018-11-10 06:21] LABS: BLOOD UREA NITROGEN 22 mg/dl (7-20)
[2018-11-10] MEDS: INSULIN ASPART [NOVOLOG] 3 ML PEN SC ×4 (08:00→21:00)
[2018-11-10] MEDS: CALCIUM CARBONATE 500 MG CHEW TAB PO ×3 (08:37→20:00)
[2018-11-10] MEDS: PENTOXIFYLLINE (SR) 400 MG TAB PO ×3 (08:37→20:40)
[2018-11-10] MEDS: LINAGLIPTIN 5 MG TABLET PO (08:38)
[2018-11-10] MEDS: FLUCONAZOLE 100 MG TAB PO (08:41)
[2018-11-10] MEDS: AMLODIPINE 10 MG TAB PO (08:41)
[2018-11-10] MEDS: FERROUS SULFATE (EC) 325 MG TAB PO (08:42)
[2018-11-10] MEDS: METOPROLOL (XL) 25 MG TAB PO (08:42)
[2018-11-10] MEDS: COLLAGENASE 5 GM (UD JAR) TOP (08:44)
[2018-11-10] MEDS: DAKINS 0.0125%(1/40) 473 ML SOLUTION TP (08:44)
[2018-11-10] MEDS: INSULIN GLARGINE [LANTus] (100 UNITS/ML) SYG SC (20:01)
[2018-11-11] MEDS: ACCU-CHEK XX (02:00)
[2018-11-11 05:41] LABS: ADD MAN DIFF? NO
[2018-11-11 05:45] LABS: ABNORMAL IP MESSAGE 1; BASOPHILS % 0.3 % (0.0-2.0); EOSINOPHILS # 0.2 10^3/ul (0.0-0.5); EOSINOPHILS % 1.7 % (0.0-7.0); HEMATOCRIT 17.5 % (42.0-52.0); LYMPHOCYTES # 1.6 10^3/ul (0.8-2.9); LYMPHOCYTES % 17.6 % (15.0-51.0); MEAN CORPUSCULAR HEMOGLOBIN 30.3 pg (29.0-33.0); MEAN CORPUSCULAR HGB CONC 34.3 g/dl (32.0-37.0); MEAN CORPUSCULAR VOLUME 88.4 fl (82.0-101.0); MONOCYTE # 0.5 10^3/ul (0.3-0.9); MONOCYTES % 5.2 % (0.0-11.0); NEUTROPHIL # 6.6 10^3/ul (1.6-7.5); NEUTROPHILS % 74.7 % (39.0-77.0); PLATELET COUNT 192 10^3/UL (140-415); POSITIVE DIFF @See below; RED BLOOD COUNT 1.98 10^6/ul (4.70-6.10); RED CELL DISTRIBUTION WIDTH 14.2 % (11.5-14.5)
[2018-11-11 05:45] LABS: WHITE BLOOD COUNT 8.8 10^3/ul (4.8-10.8)
[2018-11-11] MEDS: PANTOPRAZOLE (EC) 40 MG TAB PO (05:56)
[2018-11-11 06:20] LABS: ANION GAP 7 (5-13); BLOOD UREA NITROGEN 25 mg/dl (7-20); CALCIUM 8.2 mg/dl (8.4-10.2); CARBON DIOXIDE 27 mmol/L (21-31); CHLORIDE 104 mmol/L (97-110); Estimated GFR 37 mL/min (>60); GLUCOSE 144 mg/dl (70-220); POTASSIUM 3.6 mmol/L (3.5-5.1); SODIUM 138 mmol/L (135-144)
[2018-11-11 06:48] LABS: PHOSPHORUS 3.4 mg/dl (2.5-4.9)
[2018-11-11 06:48] LABS: MAGNESIUM 1.8 mg/dl (1.7-2.5)
[2018-11-11] MEDS: LINAGLIPTIN 5 MG TABLET PO (08:01)
[2018-11-11] MEDS: INSULIN ASPART [NOVOLOG] 3 ML PEN SC ×4 (08:01→20:31)
[2018-11-11] MEDS: FLUCONAZOLE 100 MG TAB PO (09:03)
[2018-11-11] MEDS: PENTOXIFYLLINE (SR) 400 MG TAB PO ×3 (09:03→20:32)
[2018-11-11] MEDS: FERROUS SULFATE (EC) 325 MG TAB PO (09:03)
[2018-11-11] MEDS: CALCIUM CARBONATE 500 MG CHEW TAB PO ×3 (09:03→19:54)
[2018-11-11] MEDS: METOPROLOL (XL) 25 MG TAB PO (09:03)
[2018-11-11] MEDS: SOD CHLORIDE 0.9% 250 ML IV* (09:04)
[2018-11-11] MEDS: AMLODIPINE 10 MG TAB PO (09:04)
[2018-11-11 11:45] LABS: IMMEDIATE SPIN CROSSMATCH 1 1
[2018-11-11] MEDS: SOD FERRIC GLUC COMPLX 125 MG in SOD CHLORIDE 0.9% 100 ML IVPB (15:36)
[2018-11-11] MEDS: EPOETIN ALFA-EPBX (NON-ESRD 10,000 UNIT/ML VIAL SC (17:32)
[2018-11-11] MEDS: INSULIN GLARGINE [LANTus] (100 UNITS/ML) SYG SC (20:32)
[2018-11-12] MEDS: ACCU-CHEK XX (01:55)
[2018-11-12] MEDS: PANTOPRAZOLE (EC) 40 MG TAB PO (05:34)
[2018-11-12 06:34] LABS: ADD MAN DIFF? NO
[2018-11-12 06:38] LABS: BASOPHILS % 0.6 % (0.0-2.0); EOSINOPHILS # 0.2 10^3/ul (0.0-0.5); EOSINOPHILS % 2.7 % (0.0-7.0); HEMATOCRIT 22.2 % (42.0-52.0); HEMOGLOBIN 7.7 g/dl (14.0-18.0); LYMPHOCYTES # 1.4 10^3/ul (0.8-2.9); LYMPHOCYTES % 19.2 % (15.0-51.0); MEAN CORPUSCULAR HEMOGLOBIN 30.3 pg (29.0-33.0); MEAN CORPUSCULAR HGB CONC 34.7 g/dl (32.0-37.0); MEAN CORPUSCULAR VOLUME 87.4 fl (82.0-101.0); MEAN PLATELET VOLUME 9.2 fl (7.4-10.4); MONOCYTE # 0.4 10^3/ul (0.3-0.9); NEUTROPHIL # 5.1 10^3/ul (1.6-7.5); NEUTROPHILS % 70.9 % (39.0-77.0); PLATELET COUNT 210 10^3/UL (140-415); RED BLOOD COUNT 2.54 10^6/ul (4.70-6.10); RED CELL DISTRIBUTION WIDTH 14.1 % (11.5-14.5)
[2018-11-12 06:38] LABS: WHITE BLOOD COUNT 7.2 10^3/ul (4.8-10.8)
[2018-11-12] MEDS: INSULIN ASPART [NOVOLOG] 3 ML PEN SC ×4 (08:00→20:53)
[2018-11-12] MEDS: FERROUS SULFATE (EC) 325 MG TAB PO (09:06)
[2018-11-12] MEDS: CALCIUM CARBONATE 500 MG CHEW TAB PO ×3 (09:06→17:40)
[2018-11-12] MEDS: FLUCONAZOLE 100 MG TAB PO (09:06)
[2018-11-12] MEDS: PENTOXIFYLLINE (SR) 400 MG TAB PO ×3 (09:06→20:51)
[2018-11-12] MEDS: LINAGLIPTIN 5 MG TABLET PO (09:07)
[2018-11-12] MEDS: AMLODIPINE 10 MG TAB PO (09:07)
[2018-11-12] MEDS: METOPROLOL (XL) 25 MG TAB PO (09:07)
[2018-11-12] MEDS: SOD FERRIC GLUC COMPLX 125 MG in SOD CHLORIDE 0.9% 100 ML IVPB (13:07)
[2018-11-12] MEDS: INSULIN GLARGINE [LANTus] (100 UNITS/ML) SYG SC (20:52)
[2018-11-13] MEDS: ACCU-CHEK XX (02:13)
[2018-11-13 04:54] LABS: ADD MAN DIFF? NO
[2018-11-13 05:03] LABS: WHITE BLOOD COUNT 6.9 10^3/ul (4.8-10.8)
[2018-11-13 05:03] LABS: BASOPHILS % 0.6 % (0.0-2.0); EOSINOPHILS # 0.2 10^3/ul (0.0-0.5); EOSINOPHILS % 3.2 % (0.0-7.0); HEMATOCRIT 22.1 % (42.0-52.0); HEMOGLOBIN 7.5 g/dl (14.0-18.0); LYMPHOCYTES # 1.4 10^3/ul (0.8-2.9); LYMPHOCYTES % 20.7 % (15.0-51.0); MEAN CORPUSCULAR HEMOGLOBIN 30.2 pg (29.0-33.0); MEAN CORPUSCULAR HGB CONC 33.9 g/dl (32.0-37.0); MEAN CORPUSCULAR VOLUME 89.1 fl (82.0-101.0); MEAN PLATELET VOLUME 9.3 fl (7.4-10.4); MONOCYTE # 0.4 10^3/ul (0.3-0.9); NEUTROPHIL # 4.7 10^3/ul (1.6-7.5); NEUTROPHILS % 69.1 % (39.0-77.0); PLATELET COUNT 204 10^3/UL (140-415); RED BLOOD COUNT 2.48 10^6/ul (4.70-6.10); RED CELL DISTRIBUTION WIDTH 14.1 % (11.5-14.5)
[2018-11-13] MEDS: PANTOPRAZOLE (EC) 40 MG TAB PO (05:30)
[2018-11-13] MEDS: INSULIN ASPART [NOVOLOG] 3 ML PEN SC ×4 (08:00→21:00)
[2018-11-13] MEDS: METOPROLOL (XL) 25 MG TAB PO (08:08)
[2018-11-13] MEDS: FERROUS SULFATE (EC) 325 MG TAB PO (08:09)
[2018-11-13] MEDS: PENTOXIFYLLINE (SR) 400 MG TAB PO ×3 (08:09→21:07)
[2018-11-13] MEDS: FLUCONAZOLE 100 MG TAB PO (08:09)
[2018-11-13] MEDS: CALCIUM CARBONATE 500 MG CHEW TAB PO ×3 (08:09→17:25)
[2018-11-13] MEDS: LINAGLIPTIN 5 MG TABLET PO (08:09)
[2018-11-13] MEDS: AMLODIPINE 10 MG TAB PO (08:10)
[2018-11-13] MEDS: SOD FERRIC GLUC COMPLX 125 MG in SOD CHLORIDE 0.9% 100 ML IVPB (12:06)
[2018-11-13] MEDS: EPOETIN ALFA-EPBX (NON-ESRD 10,000 UNIT/ML VIAL SC (17:25)
[2018-11-13] MEDS: SOD CHLORIDE 0.9% 1,000 ML IV (18:49)
[2018-11-13] MEDS: INSULIN GLARGINE [LANTus] (100 UNITS/ML) SYG SC (21:09)
[2018-11-13 22:21] LABS: ABNORMAL PROTEIN BAND 1 0.2 g/dL (NONE DETECTED); ALBUMIN 2.3 g/dL (3.8-4.8); ALPHA-1-GLOBULINS 0.6 g/dL (0.2-0.3); BETA 2 GLOBULINS 0.5 g/dL (0.2-0.5); BETA GLOBULINS 0.4 g/dL (0.4-0.6); GAMMA GLOBULINS 1.2 g/dL (0.8-1.7)
[2018-11-14] MEDS: ACCU-CHEK XX (02:00)
[2018-11-14] MEDS: PANTOPRAZOLE (EC) 40 MG TAB PO (05:13)
[2018-11-14 06:01] LABS: ADD MAN DIFF? NO
[2018-11-14 06:22] LABS: BASOPHILS % 0.7 % (0.0-2.0); EOSINOPHILS # 0.3 10^3/ul (0.0-0.5); EOSINOPHILS % 4.6 % (0.0-7.0); HEMOGLOBIN 7.5 g/dl (14.0-18.0); LYMPHOCYTES # 1.4 10^3/ul (0.8-2.9); LYMPHOCYTES % 24.1 % (15.0-51.0); MEAN CORPUSCULAR HGB CONC 34.1 g/dl (32.0-37.0); MEAN PLATELET VOLUME 9.3 fl (7.4-10.4); MONOCYTE # 0.4 10^3/ul (0.3-0.9); MONOCYTES % 6.5 % (0.0-11.0); NEUTROPHIL # 3.7 10^3/ul (1.6-7.5); NEUTROPHILS % 63.6 % (39.0-77.0); PLATELET COUNT 217 10^3/UL (140-415); RED CELL DISTRIBUTION WIDTH 14.3 % (11.5-14.5)
[2018-11-14 06:22] LABS: WHITE BLOOD COUNT 5.8 10^3/ul (4.8-10.8)
[2018-11-14 06:34] LABS: ANION GAP 2 (5-13); BLOOD UREA NITROGEN 36 mg/dl (7-20); CALCIUM 8.5 mg/dl (8.4-10.2); CARBON DIOXIDE 29 mmol/L (21-31); CHLORIDE 107 mmol/L (97-110); CREATININE 1.72 mg/dl (0.61-1.24); Estimated GFR 42 mL/min (>60); GLUCOSE 73 mg/dl (70-220); POTASSIUM 3.8 mmol/L (3.5-5.1); SODIUM 138 mmol/L (135-144)
[2018-11-14] MEDS: INSULIN ASPART [NOVOLOG] 3 ML PEN SC ×4 (08:00→21:00)
[2018-11-14] MEDS: FLUCONAZOLE 100 MG TAB PO (08:10)
[2018-11-14] MEDS: CALCIUM CARBONATE 500 MG CHEW TAB PO ×3 (08:10→17:26)
[2018-11-14] MEDS: FERROUS SULFATE (EC) 325 MG TAB PO (08:10)
[2018-11-14] MEDS: PENTOXIFYLLINE (SR) 400 MG TAB PO ×3 (08:10→21:22)
[2018-11-14] MEDS: LINAGLIPTIN 5 MG TABLET PO (08:10)
[2018-11-14] MEDS: METOPROLOL (XL) 25 MG TAB PO (08:11)
[2018-11-14] MEDS: AMLODIPINE 10 MG TAB PO (08:11)
[2018-11-14] MEDS: SOD FERRIC GLUC COMPLX 125 MG in SOD CHLORIDE 0.9% 100 ML IVPB (12:22)
[2018-11-14] MEDS: SOD CHLORIDE 0.9% 1,000 ML IV (17:26)
[2018-11-14] MEDS: INSULIN GLARGINE [LANTus] (100 UNITS/ML) SYG SC (21:24)
[2018-11-15] MEDS: ACCU-CHEK XX (02:00)
[2018-11-15] MEDS: PANTOPRAZOLE (EC) 40 MG TAB PO (05:35)
[2018-11-15] MEDS: INSULIN ASPART [NOVOLOG] 3 ML PEN SC ×4 (08:00→20:27)
[2018-11-15] MEDS: AMLODIPINE 10 MG TAB PO (09:05)
[2018-11-15] MEDS: FERROUS SULFATE (EC) 325 MG TAB PO (09:05)
[2018-11-15] MEDS: FLUCONAZOLE 100 MG TAB PO (09:05)
[2018-11-15] MEDS: METOPROLOL (XL) 25 MG TAB PO (09:06)
[2018-11-15] MEDS: CALCIUM CARBONATE 500 MG CHEW TAB PO ×3 (09:06→19:05)
[2018-11-15] MEDS: LINAGLIPTIN 5 MG TABLET PO (09:06)
[2018-11-15] MEDS: PENTOXIFYLLINE (SR) 400 MG TAB PO ×3 (09:06→20:26)
[2018-11-15] MEDS: SOD CHLORIDE 0.9% 1,000 ML IV ×2 (09:09→17:16)
[2018-11-15] MEDS: SOD FERRIC GLUC COMPLX 125 MG in SOD CHLORIDE 0.9% 100 ML IVPB (13:48)
[2018-11-15] MEDS: INSULIN GLARGINE [LANTus] (100 UNITS/ML) SYG SC (20:25)
[2018-11-16] MEDS: ACCU-CHEK XX (01:53)
[2018-11-16] MEDS: PANTOPRAZOLE (EC) 40 MG TAB PO (05:20)
[2018-11-16 05:36] LABS: ADD MAN DIFF? NO
[2018-11-16 05:46] LABS: BASOPHILS % 0.5 % (0.0-2.0); EOSINOPHILS # 0.3 10^3/ul (0.0-0.5); EOSINOPHILS % 4.5 % (0.0-7.0); HEMATOCRIT 22.6 % (42.0-52.0); HEMOGLOBIN 7.5 g/dl (14.0-18.0); LYMPHOCYTES # 1.4 10^3/ul (0.8-2.9); MEAN CORPUSCULAR HEMOGLOBIN 29.9 pg (29.0-33.0); MEAN CORPUSCULAR HGB CONC 33.2 g/dl (32.0-37.0); MEAN PLATELET VOLUME 9.2 fl (7.4-10.4); MONOCYTE # 0.4 10^3/ul (0.3-0.9); MONOCYTES % 7.6 % (0.0-11.0); NEUTROPHIL # 3.6 10^3/ul (1.6-7.5); NEUTROPHILS % 62.7 % (39.0-77.0); PLATELET COUNT 246 10^3/UL (140-415); RED BLOOD COUNT 2.51 10^6/ul (4.70-6.10); RED CELL DISTRIBUTION WIDTH 15.1 % (11.5-14.5)
[2018-11-16 05:46] LABS: WHITE BLOOD COUNT 5.8 10^3/ul (4.8-10.8)
[2018-11-16 06:11] LABS: ANION GAP 3 (5-13); BLOOD UREA NITROGEN 35 mg/dl (7-20); CALCIUM 8.5 mg/dl (8.4-10.2); CARBON DIOXIDE 28 mmol/L (21-31); CHLORIDE 109 mmol/L (97-110); CREATININE 1.62 mg/dl (0.61-1.24); Estimated GFR 45 mL/min (>60); GLUCOSE 62 mg/dl (70-220); POTASSIUM 3.9 mmol/L (3.5-5.1); SODIUM 140 mmol/L (135-144)
[2018-11-16] MEDS: INSULIN ASPART [NOVOLOG] 3 ML PEN SC ×4 (08:00→21:12)
[2018-11-16] MEDS: LINAGLIPTIN 5 MG TABLET PO (08:11)
[2018-11-16] MEDS: CALCIUM CARBONATE 500 MG CHEW TAB PO ×3 (09:14→18:39)
[2018-11-16] MEDS: FERROUS SULFATE (EC) 325 MG TAB PO (09:14)
[2018-11-16] MEDS: PENTOXIFYLLINE (SR) 400 MG TAB PO ×3 (09:14→21:10)
[2018-11-16] MEDS: FLUCONAZOLE 100 MG TAB PO (09:14)
[2018-11-16] MEDS: COLLAGENASE 5 GM (UD JAR) TOP (09:14)
[2018-11-16] MEDS: METOPROLOL (XL) 25 MG TAB PO (09:16)
[2018-11-16] MEDS: AMLODIPINE 10 MG TAB PO (09:22)
[2018-11-16] MEDS: SOD CHLORIDE 0.9% 1,000 ML IV (17:11)
[2018-11-16] MEDS: EPOETIN ALFA-EPBX (NON-ESRD 10,000 UNIT/ML VIAL SC (17:15)
[2018-11-16] MEDS: INSULIN GLARGINE [LANTus] (100 UNITS/ML) SYG SC (21:12)
[2018-11-17] MEDS: ACCU-CHEK XX (02:00)
[2018-11-17] MEDS: PANTOPRAZOLE (EC) 40 MG TAB PO (05:29)
[2018-11-17] MEDS: INSULIN ASPART [NOVOLOG] 3 ML PEN SC ×4 (07:53→21:00)
[2018-11-17] MEDS: CALCIUM CARBONATE 500 MG CHEW TAB PO ×3 (08:32→19:05)
[2018-11-17] MEDS: LINAGLIPTIN 5 MG TABLET PO (08:32)
[2018-11-17] MEDS: FERROUS SULFATE (EC) 325 MG TAB PO (08:32)
[2018-11-17] MEDS: METOPROLOL (XL) 25 MG TAB PO (08:33)
[2018-11-17] MEDS: FLUCONAZOLE 100 MG TAB PO (08:33)
[2018-11-17] MEDS: AMLODIPINE 10 MG TAB PO (08:33)
[2018-11-17] MEDS: PENTOXIFYLLINE (SR) 400 MG TAB PO ×3 (08:33→21:40)
[2018-11-17 15:50] LABS: RETICULOCYTE RBC 2.61
[2018-11-17 15:50] LABS: RETICULOCYTE COUNT # 0.146 X10^6 (0.020-0.110); RETICULOCYTE COUNT % 5.6 % (0.5-1.5)
[2018-11-17] MEDS: FUROSEMIDE 20 MG INJ IV (16:28)
[2018-11-17] MEDS: INSULIN GLARGINE [LANTus] (100 UNITS/ML) SYG SC (21:42)
[2018-11-18] MEDS: ALTEPLASE (CATHFLO) 2 MG INJ CATHETER (01:28)
[2018-11-18] MEDS: ACCU-CHEK XX (02:00)
[2018-11-18] MEDS: PANTOPRAZOLE (EC) 40 MG TAB PO (05:54)
[2018-11-18] MEDS: LINAGLIPTIN 5 MG TABLET PO (07:52)
[2018-11-18] MEDS: INSULIN ASPART [NOVOLOG] 3 ML PEN SC ×4 (07:52→20:51)
[2018-11-18] MEDS: FUROSEMIDE 20 MG INJ IV (09:17)
[2018-11-18] MEDS: AMLODIPINE 10 MG TAB PO (09:17)
[2018-11-18] MEDS: FERROUS SULFATE (EC) 325 MG TAB PO (09:17)
[2018-11-18] MEDS: PENTOXIFYLLINE (SR) 400 MG TAB PO ×3 (09:18→20:49)
[2018-11-18] MEDS: METOPROLOL (XL) 25 MG TAB PO (09:18)
[2018-11-18] MEDS: CALCIUM CARBONATE 500 MG CHEW TAB PO ×3 (09:18→19:05)
[2018-11-18] MEDS: EPOETIN ALFA-EPBX (NON-ESRD 10,000 UNIT/ML VIAL SC (17:12)
[2018-11-18] MEDS: INSULIN GLARGINE [LANTus] (100 UNITS/ML) SYG SC (20:51)
[2018-11-19] MEDS: ACCU-CHEK XX (02:00)
[2018-11-19] MEDS: PANTOPRAZOLE (EC) 40 MG TAB PO (05:29)
[2018-11-19] MEDS: INSULIN ASPART [NOVOLOG] 3 ML PEN SC ×3 (07:47→17:33)
[2018-11-19] MEDS: CALCIUM CARBONATE 500 MG CHEW TAB PO ×3 (09:11→18:14)
[2018-11-19] MEDS: AMLODIPINE 10 MG TAB PO (09:12)
[2018-11-19] MEDS: FERROUS SULFATE (EC) 325 MG TAB PO (09:12)
[2018-11-19] MEDS: METOPROLOL (XL) 25 MG TAB PO (09:12)
[2018-11-19] MEDS: LINAGLIPTIN 5 MG TABLET PO (09:12)
[2018-11-19] MEDS: PENTOXIFYLLINE (SR) 400 MG TAB PO ×2 (09:12→13:14)
[2018-11-19] MEDS: FUROSEMIDE 20 MG INJ IV (09:16)
== END 2018-11-19 20:18 | disposition home health service (06) | DRG 853 ==
LOC: PP2 10-29 10:58 → ICU 10-28 22:30 → E/R 19:41 → ICU 10-26 19:23 → PP2 21:27
PROC: 0Y6H0Z2 Detachment at Right Lower Leg, Mid, Open Approach (ICD-10-PCS; principal; 2018-10-28 22:00)
PROC: 30233N1 Transfusion of Nonautologous Red Blood Cells into Peripheral Vein, Percutaneous Approach (ICD-10-PCS; 2018-10-28 22:25)
DX: A41.50 Gram-negative sepsis, unspecified (principal); R65.21 Severe sepsis with septic shock; E11.52 Type 2 diabetes mellitus with diabetic peripheral angiopathy with gangrene; N17.9 Acute kidney failure, unspecified; E87.1 Hypo-osmolality and hyponatremia; E87.2 Acidosis; E11.22 Type 2 diabetes mellitus with diabetic chronic kidney disease; I12.9 Hypertensive chronic kidney disease with stage 1 through stage 4 chronic kidney disease, or unspecified chronic kidney disease; N18.9 Chronic kidney disease, unspecified; E83.51 Hypocalcemia; E87.6 Hypokalemia; D63.1 Anemia in chronic kidney disease; E11.621 Type 2 diabetes mellitus with foot ulcer; L97.519 Non-pressure chronic ulcer of other part of right foot with unspecified severity; E11.21 Type 2 diabetes mellitus with diabetic nephropathy; E78.5 Hyperlipidemia, unspecified; Z79.4 Long term (current) use of insulin; Z89.422 Acquired absence of other left toe(s)
CPT/HCPCS: 36415; 36430; 71045; 73630; 73700; 73718; 80048; 80053; 80202; 81001; 82140; 82270; 82565; 82607; 82728; 82746; 82962; 83010; 83540; 83605; 83735; 84100; 84155; 84165; 84484; 84520; 85014; 85018; 85025; 85045; 85610; 85730; 86850; 86880; 86900; 86901; 86920; 87040-91; 87070; 87081; 88307; 93005; 96374; 96375; 97110; 97116; 97162; 97530; 99285-25

== ENCOUNTER 2018-11-22 18:35 | Emergency (ER) | payer OTHER ==
[2018-11-22] MEDS: LIDOCAINE 1% (MDV) 20 ML INJ SC (21:17)
== END 2018-11-22 22:13 | disposition home or self-care (01) ==
LOC: FTE 18:35 → E/R 22:13
DX: S81.811A Laceration without foreign body, right lower leg, initial encounter (principal); T81.31XA Disruption of external operation (surgical) wound, not elsewhere classified, initial encounter; N18.9 Chronic kidney disease, unspecified; I12.9 Hypertensive chronic kidney disease with stage 1 through stage 4 chronic kidney disease, or unspecified chronic kidney disease; E11.22 Type 2 diabetes mellitus with diabetic chronic kidney disease; W18.39XA Other fall on same level, initial encounter; Y82.9 Unspecified medical devices associated with adverse incidents; Y92.002 Bathroom of unspecified non-institutional (private) residence as the place of occurrence of the external cause; Z79.4 Long term (current) use of insulin
CPT/HCPCS: 12004; 99282-25